=== PATIENT | male | born 1930 | race Caucasian/White ===

== ENCOUNTER 2017-01-03 16:24 | Emergency (ER) ==
[2017-01-03 16:37] VITALS: BP 121/68; TEMP 98.6; BMI 24.1
--- NOTE | 2017-01-03 17:06 | ED.PDOC ---
General ED Provider: Dr. MANAS STANLEY Chief Complaint: Extremity Pain/Injury Stated Complaint: mowing lawn on riding mower which tipped sideways on a hill. Patient jumped off and landed on left side with left arm under him. Tore skin of left elbow and hurt chest wall under elbow. Doesn't think anything is broken but insisted he come and be evaluated. Mower did not hit him. No LOC. Denies any other injury. Time Seen by Physician: 17:07 Mode of Arrival: Walk-In Information Source: Patient Primary Care Provider: DEBORA OLIVER Nursing and Triage Documentation Reviewed and Agree: Yes Musculoskeletal Complaint Exam - Elbow Pain Complaint/Exam Mechanism of Injury: Reports: Trauma Symptoms Are: Still present Onset of Pain: Reports: Immediate Initial Severity: Mild Current Severity: Moderate Location: Reports: Diffuse (left posterior elbow) Character: Reports: Aching Alleviating: Reports: Rest Aggravating: Reports: None Associated Signs and Symptoms: Reports: Redness (skin tear) Related Surgical History: Reports: None Elbow Findings: Present: Ecchymosis, Laceration (skin tear) Differential Diagnoses: Contusion, Other (skin tear) - Back Pain Complaint/Exam Mechanism of Injury: Reports: Trauma Onset/Duration: 3 hours Symptoms Are: Still present Timing: Constant Episodes Lasting: Hours Initial Severity: Moderate Current Severity: Moderate Location: Reports: Discrete (left lateral midchest) Character: Reports: Aching Aggravating: Reports: Movements (does not hurt with deep breath or cough), Lifting. Denies: Bending, Walking, Cough Alleviating: Reports: Rest TAD Risk Factors: Reports: Hypertension AAA Risk Factors: Reports: Hypertension Cauda Equina Risk Factors: Reports: None Epidural Abcess Risk Factors: Reports: None Related Surgical History: Reports: None Focal Tenderness: Yes Paraspinal Muscle Tenderness: No Paraspinal Muscle Spasm: No Scoliosis: No Lordosis: No Kyphosis: No SLR Test: Right Negative, Left Negative Hip Motion Testing Pain: Right Negative, Left Negative Focal Weakness: Present: None Focal Sensory Loss: Present: None Gait: Present: Normal Differential Diagnoses: Other (chest wall contusion) Review of Systems - Review Of Systems Constitutional: Reports: No symptoms Eyes: Reports: No symptoms Ears, Nose, Mouth, Throat: Reports: No symptoms Respiratory: Reports: No symptoms Cardiac: Reports: No symptoms GI: Reports: No symptoms : Reports: No symptoms Musculoskeletal: Reports: Muscle pain (left lateral midchest wall tenderness to palpation. minimal pain at rest) Skin: Reports: Bruising (skin tear left elbow) Neurological: Reports: No symptoms All Other Systems: Reviewed and Negative Past Medical History - Past Medical History Previously Healthy: No Endocrine: Reports: Hypothyroid Cardiovascular: Reports: CAD, [place], Hypertension Respiratory: Reports: None Hematological: Reports: None Gastrointestinal: Reports: GERD Genitourinary: Reports: None Neuro/Psych: Reports: None Musculoskeletal: Reports: None Cancer: Reports: None - Surgical History General Surgical History: Reports: Stent, Heart Cath, Pacemaker, Orthopedic ( knee x2, shoulder, forearm (post trauma - 4 fractures)), Hernia Repair (x2) - Family History Family History: Reports: Unknown - Social History Smoking Status: Never smoker Hx Substance Use: No Alcohol Screening: None Lives: With family - Immunizations Tetanus Shot up to Date: No (Long time) Influenza Vaccine within 12 Months: No Pneumococcal Vaccine up to Date: No Physical Exam - Physical Exam Appearance: Well-appearing, No pain distress, Well-nourished Ill-appearing: None Pain Distress: None Eyes: YONI, EOMI, Conjunctiva clear ENT: Ears normal, Nose normal, Oropharynx normal Neck: Supple Respiratory: Airway patent, Breath sounds clear, Breath sounds equal, Respirations nonlabored GI/: Soft, Nontender, No masses, Bowel sounds normal, No Organomegaly Musculoskeletal: Normal strength (lateral midchest wall is tender to palpation. No pain with pressure on chest anterior or posterior to affected area. No crepitance. Left elbow has posterior skin tear approx 3 cm long. No pain with ROM of elbow.), ROM intact, No edema, No calf tenderness Skin: Warm (skin tear of left elbow, posterior aspect), Dry, Normal color Neurological: Sensation intact, Motor intact, Reflexes intact, Cranial nerves intact, Alert, Oriented Psychiatric: Affect appropriate, Mood appropriate Critical Care Note - Critical Care Note Total Time (mins): 0 Course - Course Vital Signs: Temp Pulse Resp BP Pulse Ox 01/03/17 16:26 98.6 F 70 20 121/68 94 L Departure - Departure Time of Disposition: 17:32 Disposition: HOME SELF-CARE Discharge Problem: Skin tear of elbow without complication Qualifiers: Encounter type: initial encounter Laterality: left Qualified Code(s): S51.012A - Laceration without foreign body of left elbow, initial encounter Contusion of left chest wall Qualifiers: Encounter type: initial encounter Qualified Code(s): S20.212A - Contusion of left front wall of thorax, initial encounter Instructions: Skin Tear (ED), Contusion in Adults (ED) Condition: Good Pt referred to PMD for follow-up: No (See PCP if no better in one week or worsens) Additional Instructions: Change dressing on skin tear 3 times/day, using topical antibiotic ointment, nonstick dressing, and gauze. OTC pain relievers as needed. Allergies/Adverse Reactions: Allergies No Known Allergies Allergy (Unverified 02/13/15 11:25) Home Medications: Ambulatory Orders Alprazolam 1 mg PO BEDTIME 02/13/15 Aspirin [Aspirin Chewable] 81 mg PO DAILYWM 02/13/15 Cetirizine HCl [Allergy Relief] 10 mg PO DAILY 02/13/15 Cholecalciferol (Vitamin D3) [Vitamin D3] 1,000 unit PO DAILY 02/13/15 Diltiazem HCl [Cartia Xt] 180 mg PO DAILY 02/13/15 Dipyridamole [Persantine] 25 mg PO BID 02/13/15 Esomeprazole Magnesium [Nexium] 40 mg PO DAILY 02/13/15 Levothyroxine Sodium [Synthroid] 100 mcg PO QDAC 02/13/15 Lovastatin [Mevacor] 20 mg PO BEDTIME 02/13/15 Nitroglycerin 2 cap PO BID 02/13/15 Terazosin HCl [Hytrin] 5 mg PO BEDTIME 02/13/15 Nitroglycerin [Nitrostat] 0.4 mg SL Q5MIN X 3 DOSES PRN #1 tab.subl 02/14/15 Disposition Discussed With: Patient, Family
[2017-01-03] MEDS ORDERED: BOOSTRIX IM ONE (17:12)
== END 2017-01-03 17:50 | disposition home or self-care (01) ==
LOC: ED 16:24
DX: S51.012A Laceration without foreign body of left elbow, initial encounter (principal); S20.212A Contusion of left front wall of thorax, initial encounter; W17.89XA Other fall from one level to another, initial encounter
CPT/HCPCS: 90471; 90715; 99283

== ENCOUNTER 2017-04-04 17:52 | Inpatient (IN) ==
--- NOTE | 2017-04-04 18:36 | ED.PDOC ---
General Stated Complaint: flu like symptoms Time Seen by Physician: 18:00 (flu like sympx 3 days ) Mode of Arrival: Walk-In Information Source: Patient, Family Exam Limitations: No limitations Nursing and Triage Documentation Reviewed and Agree: Yes Reviewed sepsis parameters & appropriate labs ordered?: Yes System Inflammatory Response Syndrome: Not Applicable <AIDA LUCIO - Last Filed: 04/04/17 18:36> <SARBJIT PRIEST - Last Filed: 04/04/17 22:56> ED Provider: Dr. SARBJIT PRIEST Chief Complaint: Respiratory Complaint Primary Care Provider: DEBORA OLIVER Sepsis Protocol: For patient's 13 years and over: Temp is 96.8 and below OR 101 and greater Pulse >90 BPM Resp >20/minute Acutely Altered Mental Status Are patient's symptoms suggestive of a new infection, such as: -Pneumonia -Skin, Soft Tissue -Endocarditis -UTI -Bone, Joint Infection -Implantable Device -Acute Abdominal Infection -Wound Infection -Meningitis -Blood Stream Catheter Infection -Unknown Respiratory Complaint Exam - Respiratory Complaint/Exam Onset/Duration: 3 days Initial Severity: Mild Current Severity: Mild Location: Nose, Throat, Chest Character: Reports: Non-productive cough Aggravating: Reports: None Alleviating: Reports: None Associated Signs and Symptoms: Reports: URI, Nasal congestion. Denies: Rapid breathing, Dyspnea, Fever, Chills, Chest pain, Pleuritic chest pain, Wheezing, Hemoptysis, Dizziness, Calf pain, Calf swelling, Edema, Hoarseness, Sinus discomfort, Vomiting, Sore throat, Weight loss, Decreased oral intake, Increased thirst, Increased appetite, Increased urination Related History: Reports: Similar episode History of Healthcare-Acquired Pneumonia: No Related Surgical History: Reports: None Pulmonary Embolism Risk Factors: Bedrest Cardiac Risk Factors: Reports: Elevated lipids, Hypertension Tuberculosis Risk Factors: Reports: None Status Asthmaticus Risk Factors: Reports: None Home Oxygen Use: No Recent Stress Test: No Recent Echo/LV Function: No Current Antibiotic Use: No Current Asthma Medication Use: No Respiratory Distress: None Inadequate Respiratory Effort: No Dysphagia Present: No Stridor Present: No JVD Present: No Accessory Muscle Use: No Retractions: Not Present Diminished Breath Sounds: No Sinus Tenderness: None Grunting Respirations: No Kussmaul Respirations: No Differential Diagnoses: Pneumonia, Bronchitis <AIDA LUCIO - Last Filed: 04/04/17 18:36> Review of Systems - Review Of Systems Constitutional: Reports: Chills, Fever, Malaise, Weakness, Loss of appetite Eyes: Reports: No symptoms Ears, Nose, Mouth, Throat: Reports: No symptoms Respiratory: Reports: Cough Cardiac: Reports: No symptoms GI: Reports: No symptoms : Reports: No symptoms Musculoskeletal: Reports: No symptoms Skin: Reports: No symptoms Neurological: Reports: No symptoms Endocrine: Reports: No symptoms Hematologic/Lymphatic: Reports: No symptoms All Other Systems: Reviewed and Negative <AIDA LUCIO - Last Filed: 04/04/17 18:36> Past Medical History - Past Medical History Previously Healthy: No Endocrine: Reports: Hypothyroid Cardiovascular: Reports: CAD, [place], Hypertension Respiratory: Reports: None Hematological: Reports: None Gastrointestinal: Reports: GERD Genitourinary: Reports: None Neuro/Psych: Reports: None Musculoskeletal: Reports: None Cancer: Reports: None - Surgical History General Surgical History: Reports: Stent, Heart Cath, Pacemaker, Orthopedic ( knee x2, shoulder, forearm (post trauma - 4 fractures)), Hernia Repair (x2) - Family History Family History: Reports: Unknown - Social History Smoking Status: Never smoker Hx Substance Use: No Alcohol Screening: None - Immunizations Influenza Vaccine within 12 Months: No Pneumococcal Vaccine up to Date: No <AIDA LUCIO - Last Filed: 04/04/17 18:36> Physical Exam - Physical Exam Appearance: Well-appearing, No pain distress, Well-nourished Eyes: YONI, EOMI, Conjunctiva clear ENT: Ears normal, Nose normal, Oropharynx normal Respiratory: Rhonchi Cardiovascular: RRR, Pulses normal, No rub, No murmur GI/: Soft, Nontender, No masses, Bowel sounds normal, No Organomegaly Musculoskeletal: Normal strength, ROM intact, No edema, No calf tenderness Skin: Warm, Dry, Normal color Neurological: Sensation intact, Motor intact, Reflexes intact, Cranial nerves intact, Alert, Oriented Psychiatric: Affect appropriate, Mood appropriate <AIDA LUCIO - Last Filed: 04/04/17 18:36> Interpretation - Radiology Interpretation Radiology Interpretation By: Radiologist Radiology Results: Positive Exam Interpreted: CT Scan <SARBJIT PRIEST - Last Filed: 04/04/17 22:56> Physician Notification - Case Discussed Physician Notified: sarah Time of Notification: 19:00 <AIDA LUCIO - Last Filed: 04/04/17 18:36> Critical Care Note - Critical Care Note Total Time (mins): 20 <SARBJIT PRIEST - Last Filed: 04/04/17 22:56> Course - Course Hematology/Chemistry: 04/04/17 18:50 04/04/17 18:50 <SARBJIT PRIEST - Last Filed: 04/04/17 22:56> - Course Orders, Labs, Meds: Lab Review 04/04/17 04/04/17 04/04/17 18:45 18:45 18:50 WBC 8.08 RBC 4.46 L Hgb 13.8 L Hct 39.9 L MCV 89.5 MCH 30.9 MCHC 34.6 RDW Coeff of Andi 14.2 Plt Count 219 Immature Gran % (Auto) 0.1 Neut % (Auto) 66.1 Lymph % (Auto) 16.1 Mills % (Auto) 16.8 H Eos % (Auto) 0.4 Baso % (Auto) 0.5 Immature Gran # (Auto) 0.0 Neut # 5.3 Lymph # 1.3 Mills # 1.4 Eos # 0.0 Baso # 0.0 D-Dimer (Manual) 1731.62 Sodium Potassium Chloride Carbon Dioxide Anion Gap BUN Creatinine Estimated GFR (MDRD) BUN/Creatinine Ratio Glucose Lactic Acid Calcium Total Bilirubin AST ALT Alkaline Phosphatase Total Creatine Kinase Troponin I B-Natriuretic Peptide 87 Total Protein Albumin Globulin Albumin/Globulin Ratio Procalcitonin Influenza A (Rapid) Influenza B (Rapid) 04/04/17 04/04/17 04/04/17 18:50 18:50 18:50 WBC RBC Hgb Hct MCV MCH MCHC RDW Coeff of Andi Plt Count Immature Gran % (Auto) Neut % (Auto) Lymph % (Auto) Mills % (Auto) Eos % (Auto) Baso % (Auto) Immature Gran # (Auto) Neut # Lymph # Mills # Eos # Baso # D-Dimer (Manual) Sodium 138 Potassium 4.0 Chloride 104 Carbon Dioxide 26 Anion Gap 12.0 BUN 11 Creatinine 0.90 Estimated GFR (MDRD) 80.00 BUN/Creatinine Ratio 12.22 Glucose 105 Lactic Acid 11.1 Calcium 8.4 Total Bilirubin 0.7 AST 24 ALT 21 Alkaline Phosphatase 68 Total Creatine Kinase 37 Troponin I 0.0240 B-Natriuretic Peptide Total Protein 6.8 Albumin 3.4 Globulin 3.4 Albumin/Globulin Ratio 1.00 Procalcitonin < 0.05 Influenza A (Rapid) Influenza B (Rapid) 04/04/17 19:08 WBC RBC Hgb Hct MCV MCH MCHC RDW Coeff of Andi Plt Count Immature Gran % (Auto) Neut % (Auto) Lymph % (Auto) Mills % (Auto) Eos % (Auto) Baso % (Auto) Immature Gran # (Auto) Neut # Lymph # Mills # Eos # Baso # D-Dimer (Manual) Sodium Potassium Chloride Carbon Dioxide Anion Gap BUN Creatinine Estimated GFR (MDRD) BUN/Creatinine Ratio Glucose Lactic Acid Calcium Total Bilirubin AST ALT Alkaline Phosphatase Total Creatine Kinase Troponin I B-Natriuretic Peptide Total Protein Albumin Globulin Albumin/Globulin Ratio Procalcitonin Influenza A (Rapid) Positive by naat H Influenza B (Rapid) Negative by naat Orders Category Date Time Status ABG DRAW REQUEST Stat CARDIO 04/04/17 20:59 Ordered EKG-(ED ONLY) Stat CARDIO 04/04/17 18:34 Completed NPO REMINDER: IMAGING ONCE CARE 04/04/17 19:51 Completed ED IV/MEDIPORT/POWERPORT .ONCE EMERGENCY 04/04/17 19:51 Active ABG Stat LAB 04/04/17 20:59 Ordered B-TYPE NATRIURETIC PEPTIDE Stat LAB 04/04/17 18:45 Completed BLOOD CULTURE (ED ONLY) Stat LAB 04/04/17 18:50 Received CBC W/ AUTO DIFF Stat LAB 04/04/17 18:50 Completed COMPREHENSIVE METABOLIC PANEL Stat LAB 04/04/17 18:50 Completed CREATINE KINASE Stat LAB 04/04/17 18:50 Completed D-DIMER Stat LAB 04/04/17 18:45 Completed LACTIC ACID Stat LAB 04/04/17 18:50 Completed MOLECULAR FLU A/B Stat LAB 04/04/17 19:08 Completed MOLECULAR GROUP A STREP Stat LAB 04/04/17 19:08 Completed PROCALCITONIN Stat LAB 04/04/17 18:50 Completed TROPONIN I Stat LAB 04/04/17 18:50 Completed 0.9 % Sodium Chloride [Saline Flush] MEDS 04/04/17 19:51 Ordered 1 syr IVF PRN PRN Ceftriaxone Sodium [Rocephin] MEDS 04/04/17 22:05 Discontinued 1 gm .ROUTE .STK-MED ONE Ceftriaxone Sodium [Rocephin] 1 gm MEDS 04/04/17 22:03 Discontinued 0.9 % Sodium Chloride [Sodium Chloride] 50 ml IV ONCE Sodium Chloride 0.9% [Sodium Chloride] 500 ml MEDS 04/04/17 19:51 Active IV 100 mls/hr CT CHEST PE PROTOCOL Stat RADS 04/04/17 19:[address] CHEST W/O CONTRAST Stat RADS 04/04/17 18:53 Completed Medications Generic Name Dose Route Start Last Admin Trade Name Freq PRN Reason Stop Dose Admin Sodium Chloride 500 mls @ 100 mls/hr 04/04/17 19:51 04/04/17 20:14 Sodium Chloride IV 04/05/17 00:50 100 mls/hr .Q5H STA Administration Sodium Chloride 1 syr 04/04/17 19:51 04/04/17 20:14 Saline Flush IVF 1 syr PRN PRN Administration To flush IV Discontinued Medications Generic Name Dose Route Start Last Admin Trade Name Freq PRN Reason Stop Dose Admin Ceftriaxone Sodium 1 gm/ 50 mls @ 75 mls/hr 04/04/17 22:03 04/04/17 22:14 Sodium Chloride IV 04/04/17 22:42 75 mls/hr ONCE STA Administration Vital Signs: Temp Pulse Resp BP Pulse Ox 04/04/17 17:53 100.8 F H 94 H 20 105/65 94 L Departure - Departure Pt referred to PMD for follow-up: Yes Disposition Discussed With: Patient <AIDA LUCIO - Last Filed: 04/04/17 18:36> - Departure Time of Disposition: 22:56 Disposition Discussed With: Family <SARBJIT PRIEST - Last Filed: 04/04/17 22:56> - Departure Disposition: HOME SELF-CARE Discharge Problem: Influenza A Pneumonia Qualifiers: Pneumonia type: due to unspecified organism Laterality: bilateral Lung location : lower lobe of lung Qualified Code(s): J18.9 - Pneumonia, unspecified organism Instructions: Influenza (ED) Condition: Good Allergies/Adverse Reactions: Allergies No Known Allergies Allergy (Verified 04/04/17 17:58) Home Medications: Ambulatory Orders Alprazolam 1 mg PO BEDTIME 02/13/15 Aspirin [Aspirin Chewable] 81 mg PO DAILYWM 02/13/15 Cetirizine HCl [Allergy Relief] 10 mg PO DAILY 02/13/15 Cholecalciferol (Vitamin D3) [Vitamin D3] 1,000 unit PO DAILY 02/13/15 Diltiazem HCl [Cartia Xt] 180 mg PO DAILY 02/13/15 Esomeprazole Magnesium [Nexium] 40 mg PO DAILY 02/13/15 Levothyroxine Sodium [Synthroid] 100 mcg PO EVERY OTHER DAY 02/13/15 Lovastatin [Mevacor] 20 mg PO BEDTIME 02/13/15 Terazosin HCl [Hytrin] 5 mg PO BEDTIME 02/13/15 Nitroglycerin [Nitrostat] 0.4 mg SL Q5MIN X 3 DOSES PRN #1 tab.subl 02/14/15 Clopidogrel Bisulfate [Clopidogrel] 75 mg PO DAILY 04/04/17 Diphenhydramine HCl [Benadryl] 25 mg PO DAILY 04/04/17 Esomeprazole Magnesium [Nexium] 40 mg PO DAILY 04/04/17 Isosorbide Dinitrate 20 mg PO BID 04/04/17
--- NOTE | 2017-04-04 19:40 | CT ---
EXAM: CT chest without contrast TECHNIQUE: Helical axial CT of the chest was performed without contrast with coronal and sagittal rec onstructions. COMPARISON: None. HISTORY: Cough FINDINGS: Lung parenchyma: There is no mass or nodule or large effusion or infiltrate. There is trace basilar a telectasis. Mediastinum: No pathologic hilar or mediastinal adenopathy. There are coronary calcifications. There is no pericardial effusion. There is calcific atherosclerosis of the aorta. There is a pacemaker in place. There is no aortic aneurysm. 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 Upper Abdomen: The gallbladder is fairly distended. There may be some minimal fat stranding adjacent to the gallbladder. There is old granulomatous disease in the spleen. Osseous structures: Nothing acute. Surrounding soft tissues including the thyroid gland are normal. No supraclavicular or axillary adeno moriah. IMPRESSION: 1. No acute abnormality in the chest. Lungs are clear with exception of some trace atelectasis. 2. Distended gallbladder with questionable minimal mesenteric stranding. If there are any symptoms related to the right upper quadrant an ultrasound may be helpful. 3. Atherosclerosis.
[2017-04-04] MEDS ORDERED: SODIUM CHLORIDE 500 ML IV STA (19:51)
--- NOTE | 2017-04-04 20:54 | CT ---
EXAM: CTA chest for PE HISTORY: Shortness of breath with fever, sore throat and elevated D-dimer COMPARISON: CT chest 04/04/2017 and multiple prior chest x-rays TECHNIQUE: CTA of the chest was performed from the lung apices to the upper abdomen after 100 ml of Omnipaque IV contrast was administered using PE protocol. 3-D imaging was also provided. FINDINGS: There is no filling defect in the pulmonary arteries to the level of the subsegmental pulm onary arteries. The heart is normal without signs of ventricular strain. The aorta is unremarkable. Heart is unchanged in size without pericardial effusion. Lead wires are stable. There are calcifi ed mediastinal and hilar lymph nodes. There is no pneumothorax or pleural effusion. There is mild bibasilar atelectasis. There is minimal lower lobe predominant airway thickening. There is no acute consolidation, nodule or mass. The air ways are patent. The soft tissues in the upper abdomen are unchanged. The osseous structures demonstrate old rib frac tures with degenerative disease of the spine. IMPRESSION: 1. No pulmonary embolism. 2. Minimal lower lobe airway thickening may represent small airways inflammation/infection. 3. Mild bibasilar atelectasis. 4. Soft tissues in the upper abdomen are unchanged.
[2017-04-04] MEDS ORDERED: ROCEPHIN 1 GM in SODIUM CHLORIDE 50 ML IV STA (22:03)
[2017-04-04] MEDS ORDERED: ROCEPHIN ONE (22:05)
[2017-04-04] MEDS ORDERED: TYLENOL PO PRN (22:56)
[2017-04-04] MEDS ORDERED: VANCOMYCIN 1,000 MG in SODIUM CHLORIDE 200 ML IV SCH (23:00)
[2017-04-04] MEDS ORDERED: NON-FORMULARY MEDICATION (Alprazolam [Alprazolam] 1 MG) PO SCH (23:00)
[2017-04-04] MEDS ORDERED: DECADRON 4 MG/ML SDV IVP STA (23:30)
[2017-04-05] MEDS ORDERED: XANAX ONE (00:09)
[2017-04-05] MEDS: DUONEB NEB SCH ×4 (01:18→17:56)
[2017-04-05] MEDS: SODIUM CHLORIDE 1,000 ML IV SCH ×3 (01:21→22:17)
[2017-04-05] MEDS ORDERED: DEMEROL 25 MG/ML VIAL IVP STA (04:13)
--- NOTE | 2017-04-05 06:19 | CT ---
EXAM: CT of the abdomen and pelvis without contrast. HISTORY: Abdominal pain. PROCEDURE: Contiguous axial CT images of the abdomen and pelvis without contrast with coronal and sa gittal reformats. FINDINGS: Comparison made with CT of 04/04/2017. There is minimal bibasilar atelectasis. The liver i s normal in appearance. The gallbladder is at the upper limits of normal in size measuring 4 cm in di ameter. There is questionable gallbladder wall thickening which is not well visualized by CT.. There are a few calcifications in the pancreas. The spleen, adrenal glands and kidneys are normal in appea sherrell. There is residual contrast in the kidneys, ureters and bladder. The abdominal aorta is withi n normal limits in diameter. The appendix is not visualized. There is diverticulosis of the colon wi th no evidence of diverticulitis. No free fluid or free air in the abdomen or pelvis. The bladder is adequately filled with no abnormality identified. The prostate gland is enlarged measuring 5.8 cm. The seminal vesicles are unremarkable. There are degenerative changes in the spine. Impression: Gallbladder at the upper limits of normal in size with questionable gallbladder wall thi ckening. Recommend ultrasound for further evaluation. Diverticulosis of the colon. Enlarged prostate gland.
[2017-04-05] MEDS ORDERED: [UNRECOGNIZED DRUG - REMARK] PO SCH (09:00)
[2017-04-05] MEDS ORDERED: NON-FORMULARY MEDICATION (Esomeprazole Magnesium [Nexium] 40 MG) PO SCH (09:00)
[2017-04-05] MEDS ORDERED: NON-FORMULARY MEDICATION (Cholecalciferol (Vitamin D3) [Vitamin D3] 1,000 UNIT) PO SCH (09:00)
[2017-04-05] MEDS: ASPIRIN CHEWABLE PO SCH (09:07)
[2017-04-05] MEDS: CARDIZEM CD PO SCH (09:07)
[2017-04-05] MEDS: PLAVIX PO SCH (09:08)
[2017-04-05] MEDS: PROTONIX PO SCH (09:08)
[2017-04-05] MEDS: SORBITRATE PO SCH ×2 (09:08→21:20)
[2017-04-05] MEDS: VITAMIN D PO SCH (09:09)
[2017-04-05] MEDS: LOVENOX SUBCUT SCH (09:10)
[2017-04-05] MEDS: VANCOMYCIN 500 MG in SODIUM CHLORIDE 100 ML IV SCH ×3 (14:06→23:44)
[2017-04-05] MEDS ORDERED: VANCOMYCIN 500 MG in SODIUM CHLORIDE 100 ML IV SCH (16:00)
[2017-04-05 16:38] VITALS: BMI 23.8
[2017-04-05] MEDS: DECADRON 4 MG/ML SDV IVP SCH (16:59)
[2017-04-05] MEDS ORDERED: MEVACOR PO SCH (21:00)
[2017-04-05] MEDS: ROCEPHIN 1 GM in SODIUM CHLORIDE 50 ML IV SCH (21:20)
[2017-04-05] MEDS: BENADRYL PO SCH (21:20)
[2017-04-05] MEDS: HYTRIN PO SCH (21:20)
[2017-04-05] MEDS: XANAX PO SCH (21:20)
[2017-04-06] MEDS: DUONEB NEB SCH ×5 (00:12→23:10)
[2017-04-06] MEDS: PROTONIX PO SCH (06:57)
[2017-04-06] MEDS: SYNTHROID PO SCH (06:57)
[2017-04-06] MEDS: VANCOMYCIN 500 MG in SODIUM CHLORIDE 100 ML IV SCH (06:57)
[2017-04-06] MEDS ORDERED: LOVENOX SUBCUT SCH (09:00)
[2017-04-06] MEDS: SORBITRATE PO SCH ×2 (11:28→20:32)
[2017-04-06] MEDS: ASPIRIN CHEWABLE PO SCH (11:28)
[2017-04-06] MEDS: VITAMIN D PO SCH (11:29)
[2017-04-06] MEDS: CARDIZEM CD PO SCH (11:29)
[2017-04-06] MEDS: PLAVIX PO SCH (11:29)
[2017-04-06] MEDS: DECADRON 4 MG/ML SDV IVP SCH (11:30)
[2017-04-06] MEDS: LOVENOX SUBCUT SCH (11:31)
[2017-04-06] MEDS: BENADRYL PO SCH (20:31)
[2017-04-06] MEDS: XANAX PO SCH (20:31)
[2017-04-06] MEDS: HYTRIN PO SCH (20:32)
[2017-04-06] MEDS: ROCEPHIN 1 GM in SODIUM CHLORIDE 50 ML IV SCH (20:32)
[2017-04-07] MEDS: DUONEB NEB SCH ×4 (04:05→22:33)
[2017-04-07] MEDS: PROTONIX PO SCH (05:58)
[2017-04-07] MEDS: DECADRON 4 MG/ML SDV IVP SCH (09:27)
[2017-04-07] MEDS: ASPIRIN CHEWABLE PO SCH (09:27)
[2017-04-07] MEDS: SORBITRATE PO SCH ×2 (09:28→21:33)
[2017-04-07] MEDS: PLAVIX PO SCH (09:28)
[2017-04-07] MEDS: VITAMIN D PO SCH (09:28)
[2017-04-07] MEDS: LOVENOX SUBCUT SCH (09:29)
[2017-04-07] MEDS: CARDIZEM CD PO SCH (09:29)
[2017-04-07] MEDS: XANAX PO SCH (21:32)
[2017-04-07] MEDS: ROCEPHIN 1 GM in SODIUM CHLORIDE 50 ML IV SCH (21:32)
[2017-04-07] MEDS: BENADRYL PO SCH (21:32)
[2017-04-07] MEDS: COLACE PO SCH (21:32)
[2017-04-07] MEDS: HYTRIN PO SCH (21:32)
[2017-04-08] MEDS: DUONEB NEB SCH ×4 (04:03→20:32)
--- NOTE | 2017-04-08 10:32 | PCM.PROG ---
Attending Provider: ATTENDING PROVIDER: Dr. DEBORA OLIVER This patient is seen with Pam Martinez, Nurse Practitioner. DATE OF SERVICE: 04/08/17 SUBJECTIVE: This 86 year old WHITE/ M was hospitalized 04/05/17. The patient is lying in bed resting comfortably. He has been eating well. Will do an US of gallbladder today. REVIEW OF SYSTEMS: CONSTITUTIONAL: Weakness and fatigue. No night sweats. No fever or chills. HEENT: Eyes: No visual changes. No eye pain. No eye discharge. ENT: No runny nose. No epistaxis. No sinus pain. No odynophagia. No congestion. RESPIRATORY: No cough, no congestion. No hemoptysis. No shortness of breath. CARDIOVASCULAR: No angina symptoms. No CHF symptoms. No atypical chest pain for CAD. No palpitations. No orthopnea.. GASTROINTESTINAL: Good appetite. No abdominal pain. No nausea or vomiting. No diarrhea or constipation. No hematemesis. No hematochezia. GENITOURINARY: No urgency. No frequency. No dysuria. No hematuria. No obstructive symptoms. No discharge. No pain. No significant abnormal bleeding. MUSCULOSKELETAL: No musculoskeletal pain; no joint swelling. NEUROLOGICAL: Resting, oriented to person. No headache. No neck pain. No syncope. No seizures. No dizziness. PSYCHIATRIC: Not anxious. No depression. No suicidal thoughts. No homicidal thoughts. SKIN: No rash. No lesions. No wounds. ENDOCRINE: No unexplained weight loss. No weight gain. HEMATOLOGIC/LYMPHATIC: No anemia. No purpura. No petechiae. No prolonged or excessive bleeding. No palpable lymph nodes. PHYSICAL EXAMINATION: GENERAL: The patient is resting comfortably, oriented to person, lying in bed in no distress. VITAL SIGNS: Temperature 97.3 F, Pulse 84, Respiratory Rate 17, BP 119/64, Pulse Ox 96% HEENT: Head normocephalic, atraumatic. Eyes: Extraocular muscles are intact. Pupils are equal, round and reactive to light and accommodation. Ears: No lesions. Nose appeared normal. Throat: No exudate or erythema. NECK: Supple. No JVD, no carotid bruit. No lymphadenopathy or thyromegaly. LUNGS: Diminished breath sounds. Clear to auscultation. Percussion note normal. Chest symmetrical. HEART: S1, S2, no S3. No murmurs. No cyanosis or clubbing. No ascites. Pulses: Dorsalis pedis and posterior tibial pulses +1 to +2 both sides. ABDOMEN: Soft. Non-tender. Bowel sounds active. No CVA tenderness. No mass felt. EXTREMITIES: No edema. Full range of motion of all extremities, equal. NEUROLOGIC: No focal deficit. Cranial nerves II through XII are grossly intact. No headache, no double vision or headache. SKIN: Not dry. Intact. Turgor-normal. LYMPHATIC: No palpable lymph nodes/no lymphedema. MUSCULOSKELETAL: Normal joints with no swelling. Muscle tone is normal. LAB REVIEW: 04/08/17 05:10 04/08/17 05:10 04/08/17 05:10: Sodium 140, Potassium 3.8, Chloride 107, Carbon Dioxide 26, Anion Gap 10.8, BUN 17, Creatinine 0.88, Estimated GFR (MDRD) 82.00, BUN/ Creatinine Ratio 19.31, Glucose 140 H, Calcium 8.5, Total Bilirubin 0.5, AST 55 H, ALT 80 H, Alkaline Phosphatase 87, Total Protein 6.0, Albumin 3.0 L, Globulin 3.0, Albumin/Globulin Ratio 1.00 04/08/17 05:10: WBC 6.41, RBC 3.74 L, Hgb 11.4 L, Hct 33.5 L, MCV 89.6, MCH 30.5 , MCHC 34.0, RDW Coeff of Andi 14.6, Plt Count 233, Immature Gran % (Auto) 0.3, Neut % (Auto) 73.3, Lymph % (Auto) 15.9, Prowers % (Auto) 10.5 H, Eos % (Auto) 0.0 , Baso % (Auto) 0.0, Immature Gran # (Auto) 0.0, Neut # 4.7, Lymph # 1.0, Prowers # 0.7, Eos # 0.0, Baso # 0.0 ASSESSMENT: 1. Influenza A positive 2. Small pneumonia 3. Gallbladder thickening, ultrasound today PLAN: 1. Gallbladder ultrasound today 2. Liver function improving Plan and coordination of the patient's care discussed in the presence of [employer] Machine Adjuster and nurse. CONDITION: Stable SCRIBED BY: Yash YAÑEZ scribed while in presence of service performed by Dr. Oliver/Pam Martinez APRN on 04/08/17 ([id number])
[2017-04-08] MEDS: LOVENOX SUBCUT SCH (11:00)
[2017-04-08] MEDS: ASPIRIN CHEWABLE PO SCH (11:01)
[2017-04-08] MEDS: PLAVIX PO SCH (11:02)
[2017-04-08] MEDS: SORBITRATE PO SCH ×2 (11:02→20:44)
[2017-04-08] MEDS: SYNTHROID PO SCH (11:03)
[2017-04-08] MEDS: PROTONIX PO SCH (11:03)
[2017-04-08] MEDS: VITAMIN D PO SCH (11:04)
[2017-04-08] MEDS: CARDIZEM CD PO SCH (11:04)
--- NOTE | 2017-04-08 11:04 | PN ---
DATE OF SERVICE: 04/07/17 SUBJECTIVE: The patient was hospitalized with Influenza A. He is much better and no gastroenteritis. The coughing and the pneumonia seems to be resolving. The daughter as usual is in the room. REVIEW OF SYSTEMS: CONSTITUTIONAL: No night sweats. No fatigue, malaise, lethargy. No fever or chills. Weakness. HEENT: Eyes: No visual changes. No eye pain. No eye discharge. ENT: No runny nose. No epistaxis. No sinus pain. No sore throat. No odynophagia. No congestion. RESPIRATORY: No cough, no congestion. No hemoptysis. No shortness of breath. CARDIOVASCULAR: No angina symptoms. No CHF symptoms. No atypical chest pain for CAD. No palpitations. No orthopnea. GASTROINTESTINAL: No abdominal pain. No nausea or vomiting. No diarrhea or constipation. No hematemesis. No hematochezia. Appetite has improved. GENITOURINARY: No urgency. No frequency. No dysuria. No hematuria. No obstructive symptoms. No discharge. No pain. No significant abnormal bleeding. MUSCULOSKELETAL: No musculoskeletal pain; no joint swelling. NEUROLOGICAL: No headache. No neck pain. No syncope. No seizures. No dizziness. PSYCHIATRIC: Not anxious. No depression. No suicidal thoughts. No homicidal thoughts. SKIN: No rash. No lesions. No wounds. ENDOCRINE: No unexplained weight loss. No weight gain. HEMATOLOGIC/LYMPHATIC: No anemia. No purpura. No petechiae. No prolonged or excessive bleeding. No palpable lymph nodes. PHYSICAL EXAMINATION: VITALS: Stable HEENT: Head normocephalic, atraumatic. Eyes: Extraocular muscles are intact. Pupils are equal, round and reactive to light and accommodation. Ears: No lesions. Nose appeared normal. Throat: No exudate or erythema. NECK: Supple. No JVD, no carotid bruit. No lymphadenopathy or thyromegaly. LUNGS: Clear with decreased breath sounds. Percussion note normal. Chest symmetrical. HEART: S1, S2, no S3. No murmurs. No cyanosis or clubbing. No ascites. Pulses: Dorsalis pedis and posterior tibial pulses +1 to +2 both sides. ABDOMEN: Soft. Nontender. Bowel sounds active. No CVA tenderness. No mass felt. EXTREMITIES: No edema. Full range of motion of all extremities, equal. NEUROLOGIC: No focal deficit. Cranial nerves II through XII are grossly intact. No headache, no double vision or headache. SKIN: Not dry. Intact. Turgor - normal. LYMPHATIC: No palpable lymph nodes/no lymphedema. MUSCULOSKELETAL: Normal joints with no swelling. Muscle tone is normal. ASSESSMENT: 1. Pneumonia 2. Influenza seems to be resolving 3. Still short of breath with exertion. PLAN: 1. Will do echocardiogram to evaluate LV function 2. Continue NEB, steroids and antibiotics. CONDITION: Improved, Stable TIME SPENT: More than 30 minutes. Plan and coordination of the patient's care discussed in the presence of nurse. LEYDA
[2017-04-08] MEDS: DECADRON 4 MG/ML SDV IVP SCH ×2 (11:07→15:34)
[2017-04-08] MEDS ORDERED: DECADRON 4 MG/ML SDV IM ONE (11:07)
--- NOTE | 2017-04-08 11:07 | US ---
EXAM: ULTRASOUND ABDOMEN LIMITED HISTORY: Abnormal liver enzymes, inflamed gallbladder FINDINGS: Ultrasound abdomen, limited. Guzmán-scale ultrasound and color Doppler was performed. Live r size was measured at 13 cm, within normal limits. The liver parenchyma demonstrated normal sonograp hic appearance without evidence of intrahepatic biliary dilatation or focal lesion. Patent and hepato pedal main portal vein. No evidence of gallbladder stones or sludge. Gallbladder wall thickness was over upper limit normal at 0.4 cm. The common bile duct diameter was normal at 0.39 cm. The visualized pancreas was within normal limits. No ascites. IMPRESSION: 1. Mild gallbladder wall thickening. No gallstones or gallbladder sludge. No ascites. Common bile duct diameter was normal. 2. No definite sonographic abnormality of the liver.
[2017-04-08] MEDS: SODIUM CHLORIDE 1,000 ML IV SCH ×2 (11:08→11:09)
--- NOTE | 2017-04-08 14:03 | PN ---
DATE OF SERVICE: 04/06/17 SUBJECTIVE: 86 year old white male hospitalized with influenza A positive. The patient has pneumonia bilateral also. Very likely has mild inflammation of gallbladder with some abnormality of the liver function which could be from influenza and pneumonia. The patient's Mevacor will be discontinued. The patient's daughter is sitting in the room. REVIEW OF SYSTEMS: CONSTITUTIONAL: No night sweats. No fatigue, malaise, lethargy. No fever or chills. HEENT: Eyes: No visual changes. No eye pain. No eye discharge. ENT: No runny nose. No epistaxis. No sinus pain. No sore throat. No odynophagia. No congestion. RESPIRATORY: No cough, no congestion. No hemoptysis. No shortness of breath. CARDIOVASCULAR: No angina symptoms. No CHF symptoms. No atypical chest pain for CAD. No palpitations. No orthopnea. GASTROINTESTINAL: No abdominal pain. No nausea or vomiting. No diarrhea or constipation. No hematemesis. No hematochezia. Eating better and appetite has improved. He ate his breakfast again yesterday and ate his supper. GENITOURINARY: No urgency. No frequency. No dysuria. No hematuria. No obstructive symptoms. No discharge. No pain. No significant abnormal bleeding. MUSCULOSKELETAL: No musculoskeletal pain; no joint swelling. NEUROLOGICAL: No headache. No neck pain. No syncope. No seizures. No dizziness. PSYCHIATRIC: Not anxious. No depression. No suicidal thoughts. No homicidal thoughts. SKIN: No rash. No lesions. No wounds. ENDOCRINE: No unexplained weight loss. No weight gain. HEMATOLOGIC/LYMPHATIC: No anemia. No purpura. No petechiae. No prolonged or excessive bleeding. No palpable lymph nodes. PHYSICAL EXAMINATION: GENERAL: The patient is oriented to time, place and person. VITALS: Temperature 97.5, pulse 64, respiratory rate 16, blood pressure 122/58 and pulse ox 95% on room air. HEENT: Head normocephalic, atraumatic. Eyes: Extraocular muscles are intact. Pupils are equal, round and reactive to light and accommodation. Ears: No lesions. Nose appeared normal. Throat: No exudate or erythema. NECK: Supple. No JVD, no carotid bruit. No lymphadenopathy or thyromegaly. LUNGS: Mild expiratory wheeze. Good air entry. Percussion note normal. Chest symmetrical. HEART: S1, S2, no S3. No murmurs. No cyanosis or clubbing. No ascites. Pulses: Dorsalis pedis and posterior tibial pulses +1 to +2 both sides. ABDOMEN: Soft. Nontender. Bowel sounds active. No CVA tenderness. No mass felt. EXTREMITIES: No edema. Full range of motion of all extremities, equal. NEUROLOGIC: No focal deficit. Cranial nerves II through XII are grossly intact. No headache, no double vision or headache. SKIN: Not dry. Intact. Turgor - much better. LYMPHATIC: No palpable lymph nodes/no lymphedema. MUSCULOSKELETAL: Normal joints with no swelling. Muscle tone is normal. LABS: CT scan of the abdomen reviewed which showed distended gallbladder with questionable minimal mesenteric stranding. CT chest with PE protocol earlier showed lower lobe minimal thickening of the airways could be infection, inflammation with mild basilar atelectasis. ASSESSMENT: 1. Pneumonia seems to be resolving 2. Influenza A 3. Dehydration, resolving 4. Possibility to Cholecystitis seems to be resolving PLAN: 1. Continue antibiotics Rocephin, Steroids TIME SPENT: More than 30 minutes. Plan and coordination of the patient's care discussed in the presence of nurse. LEYDA
[2017-04-08] MEDS ORDERED: DECADRON 4 MG/ML SDV IM STA (14:30)
--- NOTE | 2017-04-08 15:54 | HP ---
DATE OF SERVICE: 04/05/17 REASON FOR HOSPITALIZATION/HISTORY OF PRESENT ILLNESS: 86 year old white male came to the emergency room on 04/04/17 with complaint of having flu type of symptoms. The patient had nausea and vomiting and also started having cough and congestion. His symptoms with aches and pain and fever where there for three days. The patient ran a fever as high as 101 at home. Eventually after many requests by his daughter the patient had decided to come to the emergency room. PAST MEDICAL HISTORY/PAST SURGICAL HISTORY: Coronary artery disease Dyslipidemia Hypertension Anxiety Hypothyroidism Gastroesophageal reflux REVIEW OF SYSTEMS: CONSTITUTIONAL: No night sweats. Weakness and fatigue. Fever and chills. HEENT: Eyes: No visual changes. No eye pain. No eye discharge. ENT: No runny nose. No epistaxis. No sinus pain. No sore throat. No odynophagia. No ear pain. No congestion. RESPIRATORY: Cough, Congestion with yellowish sputum production. No hemoptysis. No shortness of breath. CARDIOVASCULAR: No angina symptoms. No CHF symptoms. No atypical chest pain for CAD. No palpitations. No orthopnea. Pleuritic type of pain. No PND. No coronary insufficiency type of symptoms. GASTROINTESTINAL: No abdominal pain. Nausea and vomiting. No diarrhea or constipation. No hematemesis. No hematochezia. Poor appetite. GENITOURINARY: No urgency. No frequency. No dysuria. No hematuria. No obstructive symptoms. No discharge. No pain. No significant abnormal bleeding. MUSCULOSKELETAL: No musculoskeletal pain. No joint swelling. No arthritis. NEUROLOGICAL: No headache. No neck pain. No syncope. No seizures. No dizziness. PSYCHIATRIC: Not anxious. No depression. No suicidal thoughts. No homicidal thoughts. SKIN: No rash. No lesions. No wounds. ENDOCRINE: No unexplained weight loss. No weight gain. HEMATOLOGIC/LYMPHATIC: No anemia. No purpura. No petechiae. No prolonged or excessive bleeding. No palpable lymph nodes. PERSONAL/FAMILY/SOCIAL HISTORY: The patient is and lives by himself with the help of the daughter. Nonsmoker and no alcohol abuse. At this age he is doing all activity of daily living. Fairly intelligent. MEDICATIONS: Xanax 1mg Po at bedtime Aspirin 81mg PO daily Zyrtec 10mg Po daily Diltazem 180mg PO daily Nexium 40mg PO daily Synthroid 100mcg PO daily Mevacor 20mg Po daily Hytrin 5mg at bedtime Clopidogrel 75mg Po daily Benadryl PRN Nexium 40mg PO at QAM Isosorbide 20mg twice a day ALLERGIES: No known allergies. PHYSICAL EXAMINATION: GENERAL: The patient is VITAL SIGNS: Temperature 100.8, pulse 94, respiratory rate 20, blood pressure 105/65 and pulse ox 94% on 2 liters. These were the vitals on admission. HEENT: Head normocephalic, atraumatic. Eyes: Extraocular muscles are intact. Pupils are equal, round and reactive to light and accommodation. Ears: No lesions. Nose appeared normal. Throat: No exudate or erythema. NECK: Supple. No JVD, no carotid bruit. No lymphadenopathy or thyromegaly. LUNGS: Decreased breath sounds but clear to auscultation. Mild wheezing noted. Percussion note normal. Chest symmetrical. HEART: S1, S2, no S3. Grade I/ systolic murmur. No cyanosis or clubbing. No ascites. Pulses: Dorsalis pedis and posterior tibial pulses +1 bilaterally. ABDOMEN: Soft. Nontender. Bowel sounds active. No CVA tenderness. No mass felt. EXTREMITIES: No edema. Full range of motion of all extremities, equal. NEUROLOGIC: No focal deficit. Cranial nerves II through XII are grossly intact. No headache, no double vision or headache. Mental status normal. SKIN: Dry. Intact. Turgor - normal. Mucosa membrane dry. LYMPHATIC: No palpable lymph nodes/no lymphedema. MUSCULOSKELETAL: Normal joints with no swelling. Muscle tone is normal. LABS: CT scan of the chest done showed pneumonia. EKG pacemaker rhythm capturing and sensing well. No acute changes. Hgb 13.8, hct 39, WBC 8,000 normal differential , D-Dimer 1731 elevated. Influenza A positive. Procalcitonin less than 0.25, Lactic acid 11.1, Troponin and CK negative. Creatinine 0.9, BUN 11, potassium 4.0 ASSESSMENT: 1. Bilateral pneumonia 2. Influenza A positive with flu type of symptoms 3. Dehydration 4. Coronary artery disease 5. Acute gastritis 6. Dyslipidemia 7. Hypertension 8. BPH 9. Anxiety disorder PLAN: 1. Admit the patient 2. Put him on Vancomycin 500mg twice a day 3. IV Rocephin 1 gram Q 24 4. 1cc Decadron IM daily 5. Daily CBC and CMP 6. IV fluids at 50cc per hour 7. Continue all the medications that patient had been on 8. Telemetry 9. EKG 10.ABG CONDITION: Stable The patient was not seen on 04/04/17. The patient stayed in the emergency and later on he was admitted to the floor on 04/05/17. TIME SPENT: More than 70 minutes. MTDD
[2017-04-08] MEDS: HYTRIN PO SCH (20:43)
[2017-04-08] MEDS: COLACE PO SCH (20:43)
[2017-04-08] MEDS: ROCEPHIN 1 GM in SODIUM CHLORIDE 50 ML IV SCH (20:43)
[2017-04-08] MEDS: BENADRYL PO SCH (20:43)
[2017-04-08] MEDS: XANAX PO SCH (20:44)
[2017-04-09] MEDS: DUONEB NEB SCH ×2 (04:37→09:58)
[2017-04-09] MEDS: PROTONIX PO SCH (05:52)
[2017-04-09] MEDS: DECADRON 4 MG/ML SDV IVP SCH (09:07)
[2017-04-09] MEDS: LOVENOX SUBCUT SCH (09:07)
[2017-04-09] MEDS: VITAMIN D PO SCH (09:08)
[2017-04-09] MEDS: PLAVIX PO SCH (09:08)
[2017-04-09] MEDS: CARDIZEM CD PO SCH (09:08)
[2017-04-09] MEDS: ASPIRIN CHEWABLE PO SCH (09:08)
[2017-04-09] MEDS: SORBITRATE PO SCH (09:08)
--- NOTE | 2017-04-09 09:51 | CM.DICTOOL ---
ADMISSION: 04/05/17 15:15 DISCHARGE: 04/09/17 DATE OF SERVICE: 04/09/17 FINAL DIAGNOSIS INFLUENZA A PNEUMONIA, LOWER LOBES (CT CHEST, 04/05/17) BIBASILAR ATELECTASIS (CT CHEST, 04/05/17) GALLBLADDER DISTENSION (CT ABD/PELVIS, 04/05/17) DEHYDRATION GASTROENTERITIS CAD/OH S/P STENT APPLICATION AND PACER HYPERTENSION DYSLIPIDEMIA HYPOTHYROID DISEASE CONGESTIVE HEART FAILURE GERD KNEE SURGERIES X2 PACEMAKER INSERTION CARDIAC STENT APPLICATION SHOULDER AND FOREARM FRACTURES AND REPAIR (TRAUMATIC) HERNIA REPAIR X2 NEVER A SMOKER LAST VITALS Temp Pulse Resp BP Pulse Ox 98.2 F 70 16 118/71 98 04/09/17 06:00 04/09/17 06:00 04/09/17 06:00 04/09/17 06:00 04/09/17 06:00 ACTIVE HOME MEDICATIONS Alprazolam (Xanax) 1 mg PO BEDTIME [facility] Last Admin: 04/08/17 20:44 Dose: 1 mg Aspirin (Aspirin Chewable) 81 mg PO DAILYWM [facility] Last Admin: 04/09/17 09:08 Dose: 81 mg Cholecalciferol (Vitamin D) 1,000 unit PO DAILY [facility] Last Admin: 04/09/17 09:08 Dose: 1,000 unit Clopidogrel Bisulfate (Plavix) 75 mg PO DAILY [facility] Last Admin: 04/09/17 09:08 Dose: 75 mg Diltiazem HCl (Cartia XT) 180 mg PO DAILY [facility] Last Admin: 04/09/17 09:08 Dose: 180 mg Diphenhydramine HCl (Benadryl) 25 mg PO BEDTIME [facility] Last Admin: 04/08/17 20:43 Dose: 25 mg Docusate Sodium (Colace) 100 mg PO BEDTIME [facility] Last Admin: 04/08/17 20:43 Dose: 100 mg Esmeprazole Magnesium (Nexium) 40 mg PO DAILY Isosorbide Dinitrate (Sorbitrate) 20 mg PO BID [facility] Last Admin: 04/09/17 09:08 Dose: 20 mg Levothyroxine Sodium (Synthroid) 100 mcg PO Q48H [facility] Last Admin: 04/08/17 11:03 Dose: 100 mcg Terazosin HCl (Hytrin) 5 mg PO BEDTIME [facility] Last Admin: 04/08/17 20:43 Dose: 5 mg Lovastatin (Mevacor) 20 mg PO QPM PATIENT INSTRUCTED TO HOLD ALLERGIES No Known Allergies Allergy (Verified 04/04/17 17:58) NEW PRESCRIPTIONS: KEFLEX 500 MG, TAKE ONE CAPSULE BY MOUTH THREE TIMES DAILY FOR 7 DAYS PREDNISONE 10 MG, TAKE ONE TABLET BY MOUTH TWICE DAILY FOR 5 DAYS SMOKING: NEVER A SMOKER DISEASE SPECIFIC EDUCATION: PNEUMONIA INFLUENZA A AND PREVENTION OF SPREAD DEHYDRATION GASTROENTERITIS HOME MEDICATIONS NEW PRESCRIPTIONS FOLLOW UP LAB REVIEW: 04/09/17 04:30 04/09/17 04:30 04/09/17 04:30: Sodium 140, Potassium 3.8, Chloride 106, Carbon Dioxide 27, Anion Gap 10.8, BUN 19 H, Creatinine 0.94, Estimated GFR (MDRD) 76.00, BUN/ Creatinine Ratio 20.21, Glucose 132 H, Calcium 8.5, Total Bilirubin 0.7, AST 87 H D, ALT 138 H D, Alkaline Phosphatase 84, Total Protein 6.0, Albumin 3.0 L, Globulin 3.0, Albumin/Globulin Ratio 1.00 04/09/17 04:30: WBC 6.46, RBC 3.77 L, Hgb 11.5 L, Hct 33.6 L, MCV 89.1, MCH 30.5 , MCHC 34.2, RDW Coeff of Andi 14.3, Plt Count 240, Immature Gran % (Auto) 0.5, Neut % (Auto) 74.2, Lymph % (Auto) 15.2, Starke % (Auto) 10.1 H, Eos % (Auto) 0.0 , Baso % (Auto) 0.0, Immature Gran # (Auto) 0.0, Neut # 4.8, Lymph # 1.0, Starke # 0.7, Eos # 0.0, Baso # 0.0 PLAN: DISCHARGE HOME TODAY RETURN TO SEE DR. OLIVER IN HIS OFFICE ON 04/15/17 AT 9:45 A.M. RESUME YOUR HOME MEDICATIONS PER LIST PROVIDED BY THE NURSING STAFF DO NOT TAKE YOUR MEVACOR UNTIL FURTHER INSTRUCTED BY DR. OLIVER NEW PRESCRIPTIONS KEFLEX 500 MG, TAKE ONE CAPSULE BY MOUTH THREE TIMES DAILY FOR 7 DAYS PREDNISONE 10 MG, TAKE ONE TABLET BY MOUTH TWICE DAILY FOR 5 DAYS ACTIVITY GET PLENTY OF REST AT HOME. GRADUALLY INCREASE YOUR ACTIVITY LEVEL ACCORDING TO YOUR TOLERATION DIET HEALTHY HEART SUMMARY THE PATIENT IS ALERT AND ORIENTED X3. HE CURRENTLY RESIDES AT HOME WITH HIS DAUGHTER AND SON-N-LAW. HE USES A CANE TO ASSIST WITH AMBULATION. OTHERWISE, HE DOES NOT REQUIRE ASSISTANCE WITH ADL'S, HOME HEALTH OR HOMEMAKING SERVICES. HE DESIRES TO RETURN TO HIS DAUGHTER'S HOME AT DISCHARGE. HIS SKIN TURGOR IS INTACT AND FREE OF DECUBITUS ULCERS. HIS NUTRITIONAL AND HYDRATION STATUS ARE GOOD. HE HAS BEEN AFEBRILE FOR GREATER THAN 24 HOURS. LABS ARE ACCEPTABLE. HE SAYS HE IS FEELING BETTER TODAY AND IS READY TO BE DISCHARGED HOME. DISCHARGE INSTRUCTIONS HAVE BEEN PROVIDED BOTH VERBALLY AND IN THE WRITTEN FORM. CURRENT CODE STATUS DO NOT RESUSCITATE ALICJA DIXON APRN DEBORA OLIVER M.D.
[2017-04-09 10:24] VITALS: BP 92/56; TEMP 97.2
--- NOTE | 2017-04-09 10:35 | PCM.PROG ---
Attending Provider: ATTENDING PROVIDER: Dr. DEBORA OLIVER This patient is seen with Pam Martinez, Nurse Practitioner. DATE OF SERVICE: 04/09/17 SUBJECTIVE: This 86 year old WHITE/ M was hospitalized 04/05/17. The patient is sitting up in bed, alert. The family is present and both agreeable to discharge today. He has been eating well. No fever, up and about and walking around. REVIEW OF SYSTEMS: CONSTITUTIONAL: Fatigue. No night sweats. No fever or chills. HEENT: Eyes: No visual changes. No eye pain. No eye discharge. ENT: No runny nose. No epistaxis. No sinus pain. No odynophagia. No congestion. RESPIRATORY: Cough. No congestion. No hemoptysis. No shortness of breath. CARDIOVASCULAR: No angina symptoms. No CHF symptoms. No atypical chest pain for CAD. No palpitations. No orthopnea.. GASTROINTESTINAL: No abdominal pain. No nausea or vomiting. No diarrhea or constipation. No hematemesis. No hematochezia. GENITOURINARY: No urgency. No frequency. No dysuria. No hematuria. No obstructive symptoms. No discharge. No pain. No significant abnormal bleeding. MUSCULOSKELETAL: No musculoskeletal pain; no joint swelling. NEUROLOGICAL: Awake, alert, oriented to time, place and person. No headache. No neck pain. No syncope. No seizures. No dizziness. PSYCHIATRIC: Not anxious. No depression. No suicidal thoughts. No homicidal thoughts. SKIN: No rash. No lesions. No wounds. ENDOCRINE: No unexplained weight loss. No weight gain. HEMATOLOGIC/LYMPHATIC: No anemia. No purpura. No petechiae. No prolonged or excessive bleeding. No palpable lymph nodes. PHYSICAL EXAMINATION: GENERAL: The patient is awake, alert and oriented, sitting in bed in no distress. VITAL SIGNS: Temperature 98.2 F, Pulse 70, Respiratory Rate 16, BP 118/71, Pulse Ox 98% HEENT: Head normocephalic, atraumatic. Eyes: Extraocular muscles are intact. Pupils are equal, round and reactive to light and accommodation. Ears: No lesions. Nose appeared normal. Throat: No exudate or erythema. NECK: Supple. No JVD, no carotid bruit. No lymphadenopathy or thyromegaly. LUNGS: Diminished breath sounds bilaterally. Clear to auscultation. Percussion note normal. Chest symmetrical. HEART: S1, S2, no S3. No murmurs. No cyanosis or clubbing. No ascites. Pulses: Dorsalis pedis and posterior tibial pulses +1 to +2 both sides. ABDOMEN: Soft. Non-tender. Bowel sounds active. No CVA tenderness. No mass felt. EXTREMITIES: No edema. Full range of motion of all extremities, equal. NEUROLOGIC: No focal deficit. Cranial nerves II through XII are grossly intact. No headache, no double vision or headache. SKIN: Not dry. Intact. Turgor-normal. LYMPHATIC: No palpable lymph nodes/no lymphedema. MUSCULOSKELETAL: Normal joints with no swelling. Muscle tone is normal. LAB REVIEW: 04/09/17 04:30 04/09/17 04:30 04/09/17 04:30: Sodium 140, Potassium 3.8, Chloride 106, Carbon Dioxide 27, Anion Gap 10.8, BUN 19 H, Creatinine 0.94, Estimated GFR (MDRD) 76.00, BUN/ Creatinine Ratio 20.21, Glucose 132 H, Calcium 8.5, Total Bilirubin 0.7, AST 87 H D, ALT 138 H D, Alkaline Phosphatase 84, Total Protein 6.0, Albumin 3.0 L, Globulin 3.0, Albumin/Globulin Ratio 1.00 04/09/17 04:30: WBC 6.46, RBC 3.77 L, Hgb 11.5 L, Hct 33.6 L, MCV 89.1, MCH 30.5 , MCHC 34.2, RDW Coeff of Andi 14.3, Plt Count 240, Immature Gran % (Auto) 0.5, Neut % (Auto) 74.2, Lymph % (Auto) 15.2, [place] % (Auto) 10.1 H, Eos % (Auto) 0.0 , Baso % (Auto) 0.0, Immature Gran # (Auto) 0.0, Neut # 4.8, Lymph # 1.0, [place] # 0.7, Eos # 0.0, Baso # 0.0 ASSESSMENT: 1. Influenza A positive 2. Small pneumonia 3. Gallbladder thickening, ultrasound normal PLAN: 1. D/C today 2. Keflex 500 t.i.d. for next 7 days 3. Prednisone 10 mg b.i.d. times 5 days 4. Hold Lovastatin until patient is seen next week, will do CMP 5. Will see next week in office 6. Gallbladder ultrasound normal 7. The patient has had no nausea, vomiting or pain. Plan and coordination of the patient's care discussed in the presence of Gyroscope Repairer and nurse. CONDITION: Stable SCRIBED BY: GARRICK STRICKLAND Behavioral Health Professional scribed while in presence of service performed by Dr. Oliver/Pam Martinez APRN on 04/09/17 ([id number])
--- NOTE | 2017-04-09 14:14 | PN ---
DATE OF SERVICE: 04/05/17 SUBJECTIVE: The patient was seen and his condition has improved. Respiratory system the patient's symptoms have lessened. His cough has lessened and his appetite has improved he is eating good breakfast this morning. REVIEW OF SYSTEMS: CONSTITUTIONAL: No night sweats. No fatigue, malaise, lethargy. No fever or chills. HEENT: Eyes: No visual changes. No eye pain. No eye discharge. ENT: No runny nose. No epistaxis. No sinus pain. No sore throat. No odynophagia. No congestion. RESPIRATORY: No cough, no congestion. No hemoptysis. No shortness of breath. CARDIOVASCULAR: No angina symptoms. No CHF symptoms. No atypical chest pain for CAD. No palpitations. No orthopnea. GASTROINTESTINAL: No abdominal pain. No nausea or vomiting. No diarrhea or constipation. No hematemesis. No hematochezia. GENITOURINARY: No urgency. No frequency. No dysuria. No hematuria. No obstructive symptoms. No discharge. No pain. No significant abnormal bleeding. MUSCULOSKELETAL: No musculoskeletal pain; no joint swelling. NEUROLOGICAL: No headache. No neck pain. No syncope. No seizures. No dizziness. PSYCHIATRIC: Not anxious. No depression. No suicidal thoughts. No homicidal thoughts. SKIN: No rash. No lesions. No wounds. ENDOCRINE: No unexplained weight loss. No weight gain. HEMATOLOGIC/LYMPHATIC: No anemia. No purpura. No petechiae. No prolonged or excessive bleeding. No palpable lymph nodes. PHYSICAL EXAMINATION: GENERAL: The patient is oriented to time, place and person. The patient's daughter in the room. VITAL SIGNS: Temperature 98, pulse 70, respiratory rate 15, blood pressure 138/ 78 and pulse ox 93% on room air. HEENT: Head normocephalic, atraumatic. Eyes: Extraocular muscles are intact. Pupils are equal, round and reactive to light and accommodation. Ears: No lesions. Nose appeared normal. Throat: No exudate or erythema. NECK: Supple. No JVD, no carotid bruit. No lymphadenopathy or thyromegaly. LUNGS: Decreased breath sounds but clear to auscultation. Percussion note normal. Chest symmetrical. HEART: S1, S2, no S3. No murmurs. No cyanosis or clubbing. No ascites. Pulses: Dorsalis pedis and posterior tibial pulses +1 to +2 both sides. ABDOMEN: Soft. Nontender. Bowel sounds active. No CVA tenderness. No mass felt. EXTREMITIES: No edema. Full range of motion of all extremities, equal. NEUROLOGIC: No focal deficit. Cranial nerves II through XII are grossly intact. No headache, no double vision or headache. SKIN: Not dry. Intact. Turgor - normal. LYMPHATIC: No palpable lymph nodes/no lymphedema. MUSCULOSKELETAL: Normal joints with no swelling. Muscle tone is normal. LABS: CT showed showed possibility to gallbladder with inflammation but the patient does not have symptoms or signs of it just radiographically finding. ASSESSMENT: 1. Pneumonia seems to be improving 2. Dehydration seems to be resolving with good skin turgor. Skin is not dry anymore 3. Coronary artery disease stable with no evidence of coronary insufficiency The patient had good breakfast and kept it down. No abdominal pain. TIME SPENT: More than 30 minutes. Plan and coordination of the patient's care discussed in the presence of nurse. LEYDA
--- NOTE | 2017-04-18 12:36 | DS ---
DATE OF SERVICE: 04/09/17 FINAL DIAGNOSIS: 1. INFLUENZA A 2. PNEUMONIA LOWER LOBES (CT CHEST 04/05/2017) 3. BIBASILAR ATELECTASIS (CT CHEST 04/05/2017) 4. GALLBLADDER DISTENTION (CT ABD/PELVIS 04/05/17) 5. DEHYDRATION 6. GASTROENTERITIS 7. 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 HYPERTENSION 9. DYSLIPIDEMIA 10. HYPOTHYROID DISEASE 11. CONGESTIVE HEART FAILURE 12. GERD 13. KNEE SURGERY TIMES TWO 14. PACEMAKER INSERTION 15. CARDIAC STENT APPLICATION 16. SHOULDER AND FOREARM FRACTURE REPAIR (TRAUMATIC) 17. HERNIA REPAIR TIMES TWO VITAL SIGNS AT DISCHARGE: Temperature 98.2, pulse 70, respiratory rate 16, blood pressure 118/71, pulse ox 98%. PLAN: 1. Discharge to home. 2. Return to see Edy Gaston in his office on 04/15/17 at 9:45. 3. Resume home medications as per the list provided by nursing staff. 4. Do not take your Mevacor until further instructed by Dr. Snow. HOME MEDICATIONS: Xanax 1 mg at bedtime Aspirin 81 mg Vitamin D 1000 units daily Plavix 75 mg daily Diltiazem 180 mg daily Benadryl 25 mg at bedtime Colace 100 mg at bedtime Nexium 40 mg daily Isosorbide 20 mg twice daily Synthroid 100 mcg every 48 hours Hytrin 5 mg at bedtime Lovastatin 20 mg every p.m.-patient instructed to hold. ALLERGIES: No known drug allergies. NEW PRESCRIPTIONS: Keflex 500 mg three times daily for 7 days Prednisone 10 mg twice daily for 5 days DIET INSTRUCTIONS: Healthy heart ACTIVITY: Get plenty of rest at home. Gradually increase your activity level according to your toleration. SMOKING: Never a smoker. DISEASE SPECIFIC EDUCATION: Pneumonia, influenza A and the prevention of spreading, dehydration, gastroenteritis, home medications, new prescriptions and follow up. HOSPITAL COURSE: This is an 86-year-old white male who presented to the emergency room with mild abdominal pain, diarrhea, nausea, vomiting, low grade fever. He had a mild cough. He was tested in the emergency room and found to be positive for Influenza A. CT of the chest revealed questionable small pneumonia vs atelectasis in the lower lobes. The CT of the abdomen revealed gallbladder distention related to gallbladder ultrasound which was normal with no gallstones or sludge. HIs kidney function was slightly elevated on admission due to dehydration. He was subsequently admitted, placed on Rocephin 1 gm IV daily along with Tamiflu 75 mg b.i.d. He was also started on Vancomycin 500 mg IV q.12hr along with Decadron 4 mg daily. Shortly after admission he became afebrile. He has had no fever since Friday. He has been up and about for the past 48 hours walking around, has been eating 75 to 100% of his meals for the past 24 hours. His liver function was found to be elevated on admission with AST around 88 and ALT around 140. His bilirubin and alkaline phosphatase were both normal. He did have a decrease in his levels yesterday, AST 55, ALT 80. The ultrasound of the gallbladder also viewed the liver which showed no abnormality there. Today, at time of discharge he is not having any cramping, nausea. No abdominal discomfort. Again he has been eating well. It is thought that the liver function is elevated due to viral illness from Influenza A however we will do a hepatitis panel before he leaves today. His labs have significantly improved from admission. White count 6.46, hemoglobin 11.5, hematocrit 33.6, platelets 240. Sodium 140, potassium 3.8, BUN 19, creatinine 0.94, glucose 132. Due to the questionable pneumonia, we will send him home on Keflex 500 mg p.o. t.i.d. for the next week along with Prednisone 10 mg b.i.d. for the next five days. He has a very minimal cough. He is no longer achy. He has responded very well with IV fluids and IV antibiotics. CT scan of the abdomen along with gallbladder inflammation showed no signs of diverticulitis, just changes associated with gastritis. He has been having normal stools. His medicine has been otherwise unchanged except we have been holding his Mevacor due to liver function. He has been instructed to hold this medication until he sees us next week in the office and we will repeat a CMP in the office in order to check his liver function. He is discharged home in stable condition. His daughter is present and agreeable to discharge today and is going to be there to help him. Vital signs are stable. Temperature 98.2, heart rate 70, respirations 16, BP 118/71, pulse ox 98%. TIME SPENT: More than 60 minutes. [facility]OO[facility]ORIAL HOSPITALAgustín
--- NOTE | 2017-04-27 13:46 | PN ---
DATE OF SERVICE: 04/08/17 SUBJECTIVE: 86-year-old white male hospitalized with pneumonia, flu type of symptoms. The patient's condition has steadily improved, feeling better, eating better. PHYSICAL EXAMINATION: HEENT: Head normocephalic, atraumatic. Eyes: Extraocular muscles are intact. Pupils are equal, round and reactive to light and accommodation. Ears: No lesions. Nose appeared normal. Throat: No exudate or erythema. NECK: Supple. No JVD, no carotid bruit. No lymphadenopathy or thyromegaly. LUNGS: Clear to auscultation. Percussion note normal. Chest symmetrical. HEART: S1, S2, no S3. No murmurs. No cyanosis or clubbing. No ascites. Pulses: Dorsalis pedis and posterior tibial pulses +1 to +2 both sides. ABDOMEN: Soft. Nontender. Bowel sounds active. No CVA tenderness. No mass felt. EXTREMITIES: No edema. Full range of motion of all extremities, equal. NEUROLOGIC: No focal deficit. Cranial nerves II through XII are grossly intact. No headache, no double vision or headache. SKIN: Not dry. Intact. Turgor - normal. LYMPHATIC: No palpable lymph nodes/no lymphedema. MUSCULOSKELETAL: Normal joints with no swelling. Muscle tone is normal. PLAN: 1. Continue all antibiotics, steroids and nebs treatment. The patient was seen and examined with nurse practitioner. TIME SPENT: More than 30 minutes. Plan and coordination of the patient's care discussed in the presence of nurse. LEYDA
--- NOTE | 2017-04-27 15:08 | PN ---
DATE OF SERVICE: 04/09/17 SUBJECTIVE: The patient was discharged today after being treated for influenza and acute bronchitis/pneumonitis. Condition has improved. PHYSICAL EXAMINATION: HEENT: Head normocephalic, atraumatic. Eyes: Extraocular muscles are intact. Pupils are equal, round and reactive to light and accommodation. Ears: No lesions. Nose appeared normal. Throat: No exudate or erythema. NECK: Supple. No JVD, no carotid bruit. No lymphadenopathy or thyromegaly. LUNGS: Clear to auscultation. Percussion note normal. Chest symmetrical. HEART: S1, S2, no S3. No murmurs. No cyanosis or clubbing. No ascites. Pulses: Dorsalis pedis and posterior tibial pulses +1 to +2 both sides. ABDOMEN: Soft. Nontender. Bowel sounds active. No CVA tenderness. No mass felt. EXTREMITIES: No edema. Full range of motion of all extremities, equal. NEUROLOGIC: No focal deficit. Cranial nerves II through XII are grossly intact. No headache, no double vision or headache. SKIN: Not dry. Intact. Turgor - normal. LYMPHATIC: No palpable lymph nodes/no lymphedema. MUSCULOSKELETAL: Normal joints with no swelling. Muscle tone is normal. ASSESSMENT: The patient had abnormal liver functions. The ultrasound was negative. Initially there was a possibility of cholecystitis and the patient will have hepatitis profile done and he will be followed for his abnormal liver enzymes as an outpatient. The patient was seen and examined with nurse practitioner. TIME SPENT: More than 30 minutes. Plan and coordination of the patient's care discussed in the presence of nurse. LEYDA
--- NOTE | 2017-04-27 15:10 | PN ---
CODING FOR BILLING 04/05/17 LEVEL 5 04/06/17 INTERMEDIATE 04/07/17 INTERMEDIATE 04/08/17 BRIEF 04/09/17 DISCHARGE MTDD
== END 2017-04-09 10:53 | disposition home or self-care (01) | DRG 194 ==
LOC: ED 17:52 → MEDSURG B 04-05 15:15
PROVIDERS: ADMIT Internal Medicine; ATTEND Internal Medicine
DX: J10.1 Influenza due to other identified influenza virus with other respiratory manifestations (principal); J98.11 Atelectasis; J18.9 Pneumonia, unspecified organism; R79.1 Abnormal coagulation profile; I10 Essential (primary) hypertension; I25.2 Old myocardial infarction; K82.8 Other specified diseases of gallbladder; K52.9 Noninfective gastroenteritis and colitis, unspecified; I25.10 Atherosclerotic heart disease of native coronary artery without angina pectoris; E78.5 Hyperlipidemia, unspecified; E03.9 Hypothyroidism, unspecified; I50.9 Heart failure, unspecified; Z95.0 Presence of cardiac pacemaker; K21.9 Gastro-esophageal reflux disease without esophagitis; Z79.02 Long term (current) use of antithrombotics/antiplatelets; Z79.899 Other long term (current) drug therapy; Z95.5 Presence of coronary angioplasty implant and graft
CPT/HCPCS: 36415; 80053; 80074; 80202; 82550; 82803; 83605; 83880; 84145; 84484; 85025; 85379; 87040; 87502; 87651; 93005; 93010; 94640; 96360; 96361; 96365; 96372; 99223; 99232; 99239; 99284

== ENCOUNTER 2017-04-16 12:55 | Inpatient (IN) ==
[2017-04-16] MEDS ORDERED: SODIUM CHLORIDE 1,000 ML IV STA (13:42)
[2017-04-16] MEDS ORDERED: ZESTORETIC 20-12.5 MG TAB PO STA (15:02)
[2017-04-16] MEDS ORDERED: ZESTRIL PO STA (15:03)
--- NOTE | 2017-04-16 15:16 | CT ---
EXAM: CT of the head without contrast History: Headaches, changing to a skin tag Technique: Multiplanar CT images through the head were obtained without the administration of IV con trast Findings: No acute calvarial abnormalities. Opacification with air fluid level within the anterior right ethmoid air cells and right frontal sinus. Mastoid air cells are clear in general. No acute c alvarial abnormalities. Intracranially the ventricular and cisternal spaces are normal in size, shape and configuration for a patient of this age. No dominant mass or midline shift. No hydrocephalous. No acute intracranial hemorrhage or abnormal extraaxial fluid collections. Periventricular and subcortical white matter hy podensities are probably age appropriate. Impression: 1. No acute intracranial process. 2. Acute right ethmoid and right frontal sinusitis.
--- NOTE | 2017-04-16 15:16 | CT ---
EXAM: CT of the chest without contrast History: Cough. Comparison: CT abdomen pelvis 04/16/2017, CT chest 04/04/2017 Technique: Multiplanar CT images through the thorax were obtained without the administration of IV c ontrast Findings: Heart is borderline enlarged. Coronary calcifications. Great vessels are grossly unremark able on this noncontrast study. No pathologically enlarged thoracic lymph nodes. Calcified granulom as again seen within the thorax. There are aortic valve calcifications. Dependent atelectasis. No consolidated pneumonia. No pleural fluid and no pneumothorax. No suspicious lung masses or lung nod ules. For details in the upper abdomen, please see dedicated CT abdomen pelvis done on the same day. No ac [place] osseous abnormalities. Degenerative changes of the spine. Impression: 1. No acute intrathoracic process. 2. Borderline cardiomegaly and coronary artery disease. There are aortic valve calcifications.
--- NOTE | 2017-04-16 15:26 | CT ---
EXAM: CT ABDOMEN AND PELVIS HISTORY: Abdominal pain, weakness TECHNIQUE: CT abdomen and pelvis without intravenous contrast. Images were reconstructed using 5 mm section thickness. Reformations were prepared. COMPARISON: 04/05/2017 FINDINGS: Diagnostic limitations exist without including contrast enhanced images. No focal hepatic or splenic lesion. No obvious gallbladder pathology. Pancreas and adrenal glands are within normal limits. N o hydronephrosis or nephrolithiasis. Subtle nonspecific bilateral perinephric fat stranding. No ure teral obstruction. Mild to moderate atherosclerotic disease. Stomach is unremarkable. No appendix identified. There is mild to moderate distal descending and si gmoid diverticulosis. Nonobstructive as that apparent postop changes of the rectum. Nonobstructive bowel gas pattern. Mild prostate enlargement. Urinary bladder within normal limits. There is no as cites. No ventral abdominal wall hernia. The bones appear demineralized. Lung bases have mild dependent at electasis. No pneumoperitoneum. IMPRESSION: 1. No obvious acute intra-abdominal or pelvic abnormality. There is mild nonspecific perinephric fa t stranding for which urinalysis could be considered if indicated. 2. Mild to moderate atherosclerosis. 3. Distal colon diverticulosis. Apparent postop changes of the rectum. Normal bowel gas pattern.
[2017-04-16] MEDS ORDERED: NITROSTAT SL PRN (16:18)
--- NOTE | 2017-04-16 16:24 | ED.PDOC ---
General ED Provider: Dr. AIDA LUCIO Chief Complaint: Weakness Stated Complaint: weakness Time Seen by Physician: 13:00 Mode of Arrival: Wheelchair Information Source: Patient Exam Limitations: No limitations Primary Care Provider: DEBORA OLIVER Nursing and Triage Documentation Reviewed and Agree: Yes Reviewed sepsis parameters & appropriate labs ordered?: Yes System Inflammatory Response Syndrome: Not Applicable Sepsis Protocol: For patient's 13 years and over: Temp is 96.8 and below OR 101 and greater Pulse >90 BPM Resp >20/minute Acutely Altered Mental Status Are patient's symptoms suggestive of a new infection, such as: -Pneumonia -Skin, Soft Tissue -Endocarditis -UTI -Bone, Joint Infection -Implantable Device -Acute Abdominal Infection -Wound Infection -Meningitis -Blood Stream Catheter Infection -Unknown System Inflammatory Response Syndrome: Not Applicable Neurological Complaint Exam - Altered Mental Status Complaint/Exam Current Mental Status: Confusion Last Known Well: 1 week Onset: Gradual Duration: 1 day Symptoms Are: Still present Timing: Intermittent Episodes Lasting: Days Initial Severity: Mild Current Severity: Mild Eye Deviation Present: No Character: Reports: Agitation, Lethargy Aggravating: Reports: None Alleviating: Reports: Spontaneous resolution Associated Signs and Symptoms: Denies: Dizziness, Weakness, Headache, Fever, Illness, Nuchal rigidity, Seizure, Nausea, Vomiting, Recently depressed, Trauma Related History: Reports: Similar episode Cardiac Risk Factors: Reports: Hypertension CVA Risk Factors: Reports: Hypertension Related Surgical History: Reports: None Carotid Bruit Present: Yes Glascow Coma Scale (see protocol): 15 Nystagmus Present: No Gag Reflex Present: Yes Meningeal Signs Positive: No Focal Weakness: Present: None Focal Sensory Loss: Present: None Gait: Normal Babinski Sign: Negative Right, Negative Left Heel to Toe Normal: No (unable ) Signs of Injury: Present: Normal findings Thrombolytics Considered: No Differential Diagnoses: Hypoxia, Hypoglycemia, TIA, CVA Review of Systems - Review Of Systems Constitutional: Reports: Malaise, Weakness Eyes: Reports: No symptoms Ears, Nose, Mouth, Throat: Reports: No symptoms Respiratory: Reports: No symptoms Cardiac: Reports: No symptoms GI: Reports: No symptoms : Reports: No symptoms Musculoskeletal: Reports: No symptoms Skin: Reports: No symptoms Neurological: Reports: Headache Endocrine: Reports: No symptoms Hematologic/Lymphatic: Reports: No symptoms All Other Systems: Reviewed and Negative Past Medical History - Past Medical History Previously Healthy: No Endocrine: Reports: Hypothyroid Cardiovascular: Reports: CAD, OR, Hypertension Respiratory: Reports: None Hematological: Reports: None Gastrointestinal: Reports: GERD Genitourinary: Reports: None Neuro/Psych: Reports: None Musculoskeletal: Reports: None Cancer: Reports: None - Surgical History General Surgical History: Reports: Stent, Heart Cath, Pacemaker, Orthopedic ( knee x2, shoulder, forearm (post trauma - 4 fractures)), Hernia Repair (x2) - Family History Family History: Reports: Unknown - Social History Smoking Status: Former smoker Hx Substance Use: No Alcohol Screening: None - Immunizations Influenza Vaccine within 12 Months: No Pneumococcal Vaccine up to Date: No Physical Exam - Physical Exam Appearance: Ill-appearing Ill-appearing: Mild Pain Distress: Mild Eyes: YONI, EOMI, Conjunctiva clear ENT: Dry mucosa Respiratory: Airway patent, Breath sounds clear, Breath sounds equal, Respirations nonlabored Cardiovascular: RRR, Pulses normal, No rub, No murmur GI/: Soft, Nontender, No masses, Bowel sounds normal, No Organomegaly Musculoskeletal: Normal strength, ROM intact, No edema, No calf tenderness Skin: Warm, Dry, Normal color Neurological: Sensation intact, Motor intact, Reflexes intact, Cranial nerves intact, Alert, Oriented Psychiatric: Affect appropriate, Mood appropriate Interpretation - Radiology Interpretation Radiology Interpretation By: Radiologist Radiology Results: No acute changes - Renal Medicine Physician Rate: Normal (underlying rythm) Rhythm: Sinus Physician Notification - Case Discussed Physician Notified: pmd Time of Notification: 16:25 Admit To: Inpatient Critical Care Note - Critical Care Note Total Time (mins): 0 Course - Course Hematology/Chemistry: 04/16/17 13:50 04/16/17 13:50 Orders, Labs, Meds: Lab Review 04/16/17 04/16/17 04/16/17 13:42 13:45 13:50 WBC 11.75 H RBC 4.16 L Hgb 13.0 L Hct 37.4 L MCV 89.9 MCH 31.3 H MCHC 34.8 RDW Coeff of Andi 14.5 Plt Count 271 Immature Gran % (Auto) 1.1 Neut % (Auto) 76.2 Lymph % (Auto) 11.8 [place] % (Auto) 10.2 H Eos % (Auto) 0.7 Baso % (Auto) 0.0 Immature Gran # (Auto) 0.1 Neut # 9.0 H Lymph # 1.4 [place] # 1.2 Eos # 0.1 Baso # 0.0 Puncture Site Lr O2 Saturation 99.0 ABG pH 7.547 H* ABG pCO2 29.3 L ABG pO2 115.0 H ABG HCO3 25.4 ABG Total CO2 26 ABG Base Excess 3 H Alok Test + O2 Delivery Device Nc Oxygen Liter Flow 2.00 Sodium Potassium Chloride Carbon Dioxide Anion Gap BUN Creatinine Estimated GFR (MDRD) BUN/Creatinine Ratio Glucose Lactic Acid Calcium Total Bilirubin AST ALT Alkaline Phosphatase Total Creatine Kinase Troponin I Total Protein Albumin Globulin Albumin/Globulin Ratio Procalcitonin TSH Free T4 Influenza A (Rapid) Negative by naat Influenza B (Rapid) Negative by naat 04/16/17 04/16/17 04/16/17 13:50 13:50 14:00 WBC RBC Hgb Hct MCV MCH MCHC RDW Coeff of Andi Plt Count Immature Gran % (Auto) Neut % (Auto) Lymph % (Auto) [place] % (Auto) Eos % (Auto) Baso % (Auto) Immature Gran # (Auto) Neut # Lymph # [place] # Eos # Baso # Puncture Site O2 Saturation ABG pH ABG pCO2 ABG pO2 ABG HCO3 ABG Total CO2 ABG Base Excess Alok Test O2 Delivery Device Oxygen Liter Flow Sodium 136 Potassium 4.1 Chloride 103 Carbon Dioxide 30 Anion Gap 7.1 BUN 19 H Creatinine 1.10 Estimated GFR (MDRD) 63.00 BUN/Creatinine Ratio 17.27 Glucose 177 H Lactic Acid 15.8 Calcium 7.8 L Total Bilirubin 0.9 AST 29 ALT 71 Alkaline Phosphatase 70 Total Creatine Kinase 18 Troponin I 0.0110 Total Protein 5.4 L Albumin 2.7 L Globulin 2.7 Albumin/Globulin Ratio 1.00 Procalcitonin < 0.05 TSH Free T4 Influenza A (Rapid) Influenza B (Rapid) 04/16/17 14:00 WBC RBC Hgb Hct MCV MCH MCHC RDW Coeff of Andi Plt Count Immature Gran % (Auto) Neut % (Auto) Lymph % (Auto) [place] % (Auto) Eos % (Auto) Baso % (Auto) Immature Gran # (Auto) Neut # Lymph # [place] # Eos # Baso # Puncture Site O2 Saturation ABG pH ABG pCO2 ABG pO2 ABG HCO3 ABG Total CO2 ABG Base Excess Alok Test O2 Delivery Device Oxygen Liter Flow Sodium Potassium Chloride Carbon Dioxide Anion Gap BUN Creatinine Estimated GFR (MDRD) BUN/Creatinine Ratio Glucose Lactic Acid Calcium Total Bilirubin AST ALT Alkaline Phosphatase Total Creatine Kinase Troponin I Total Protein Albumin Globulin Albumin/Globulin Ratio Procalcitonin TSH 0.863 Free T4 1.11 Influenza A (Rapid) Influenza B (Rapid) Orders Category Date Time Status ADMIT PATIENT INPATIENT .TO [facility] (MONITORED BED) ADMISSION 04/16/17 16: 16 Ordered ABG DRAW REQUEST Stat CARDIO 04/16/17 13:42 Completed EKG-(ED ONLY) Stat CARDIO 04/16/17 13:42 Completed EKG-(IP & OP ONLY) DAILY CARDIO 04/17/17 06:00 Ordered EKG-(IP & OP ONLY) DAILY CARDIO 04/18/17 06:00 Ordered EKG-(IP & OP ONLY) DAILY CARDIO 04/19/17 06:00 Ordered ACTIVITY .BR with BRP CARE 04/16/17 16:16 Ordered INTAKE & OUTPUT Q8HR CARE 04/16/17 16:16 Ordered TELEMETRY MONITORING TELE CARE 04/16/17 16:17 Ordered VITAL SIGNS Q4HR CARE 04/16/17 16:16 Ordered REGULAR DIET DIETARY 04/16/17 Dinner Ordered ED IV/MEDIPORT/POWERPORT .ONCE EMERGENCY 04/16/17 13:40 Active ABG Stat LAB 04/16/17 13:42 Completed BLOOD CULTURE Stat LAB 04/16/17 14:00 Received CBC W/ AUTO DIFF DAILY@0600 LAB 04/17/17 06:00 Ordered CBC W/ AUTO DIFF DAILY@0600 LAB 04/18/17 06:00 Ordered CBC W/ AUTO DIFF Stat LAB 04/16/17 13:50 Completed COMPREHENSIVE METABOLIC PANEL DAILY@0600 LAB 04/17/17 06:00 Ordered COMPREHENSIVE METABOLIC PANEL DAILY@0600 LAB 04/18/17 06:00 Ordered COMPREHENSIVE METABOLIC PANEL Stat LAB 04/16/17 13:50 Completed CREATINE KINASE Stat LAB 04/16/17 13:50 Completed FLU A/B MOLECULAR Stat LAB 04/16/17 13:45 Completed FREE T4 (FREE THYROXINE) Stat LAB 04/16/17 14:00 Completed LACTIC ACID Stat LAB 04/16/17 14:00 Completed MOLECULAR GROUP A STREP Stat LAB 04/16/17 13:45 Completed PROCALCITONIN Stat LAB 04/16/17 13:50 Completed THYROID STIMULATING HORMONE Stat LAB 04/16/17 14:00 Completed TROPONIN I Stat LAB 04/16/17 13:50 Completed URINALYSIS C & S IF INDICATED Stat LAB 04/16/17 13:40 Uncollected 0.9 % Sodium Chloride [Saline Flush] MEDS 04/16/17 13:39 Active 1 syr IVF PRN PRN Alprazolam [Alprazolam] MEDS 04/16/17 21:00 Ordered 1 mg PO BEDTIME Aspirin [Aspirin Chewable] MEDS 04/17/17 08:00 Ordered 81 mg PO DAILYWM Cephalexin [Keflex] MEDS 04/16/17 21:00 Ordered 500 mg PO TID Clopidogrel Bisulfate [Plavix] MEDS 04/16/17 17:00 Ordered 75 mg PO QPM Diltiazem HCl [Cardizem Cd] MEDS 04/17/17 09:00 Ordered 180 mg PO DAILY Docusate Sodium [Colace] MEDS 04/16/17 21:00 Ordered 100 mg PO BEDTIME Esomeprazole Magnesium [Nexium] MEDS 04/17/17 09:00 Ordered 40 mg PO DAILY Isosorbide Dinitrate [Sorbitrate] MEDS 04/16/17 17:00 Ordered 20 mg PO BIDAC Levothyroxine Sodium [Synthroid] MEDS 04/18/17 09:00 Ordered 100 mcg PO EVERY OTHER DAY Nitroglycerin [Nitrostat] MEDS 04/16/17 16:18 Ordered 0.4 mg SL Q5MIN X 3 DOSES PRN Prednisone MEDS 04/17/17 08:00 Ordered 10 mg PO DAILYWM Sodium Chloride 0.9% [Sodium Chloride] 1,000 ml MEDS 04/16/17 13:42 Active IV 125 mls/hr Sodium Chloride 0.9% [Sodium Chloride] 1,000 ml MEDS 04/16/17 16:30 Ordered IV 75 mls/hr Terazosin HCl [Hytrin] MEDS 04/16/17 21:00 Ordered [address] ABDOMEN/PELVIS WO CONTRAST Stat RADS 04/16/17 13:[address] CHEST W/O CONTRAST Stat RADS 04/16/17 13:[address] HEAD W/O CONTRAST Stat RADS 04/16/17 13:40 Completed Medications Generic Name Dose Route Start Last Admin Trade Name Freq PRN Reason Stop Dose Admin Aspirin 81 mg 04/17/17 08:00 Aspirin Chewable PO DAILYWM [facility] Cephalexin 500 mg 04/16/17 21:00 Keflex PO TID [facility] Clopidogrel Bisulfate 75 mg 04/16/17 17:00 Plavix PO QPM [facility] Diltiazem HCl 180 mg 04/17/17 09:00 Cardizem Cd PO DAILY [facility] Docusate Sodium 100 mg 04/16/17 21:00 Colace PO BEDTIME [facility] Sodium Chloride 1,000 mls @ 125 mls/hr 04/16/17 13:42 04/16/17 13:54 Sodium Chloride IV 04/16/17 21:41 125 mls/hr .Q8H STA Administration Sodium Chloride 1,000 mls @ 75 mls/hr 04/16/17 16:30 Sodium Chloride IV .[id number] [facility] Isosorbide Dinitrate 20 mg 04/16/17 17:00 Sorbitrate PO BIDAC [facility] Levothyroxine Sodium 100 mcg 04/18/17 09:00 Synthroid PO EVERY OTHER DAY [facility] Nitroglycerin 0.4 mg 04/16/17 16:18 Nitrostat SL Q5MIN X 3 DOSES PRN Analgesia Non-Formulary Medication 40 mg 04/17/17 09:00 Esomeprazole Magnesium [Nexium] PO DAILY [facility] Non-Formulary Medication 1 mg 04/16/17 21:00 Alprazolam [Alprazolam] PO BEDTIME [facility] Prednisone 10 mg 04/17/17 08:00 Prednisone PO DAILYWM [facility] Sodium Chloride 1 syr 04/16/17 13:39 Saline Flush IVF PRN PRN To flush IV Terazosin HCl 5 mg 04/16/17 21:00 Hytrin PO BEDTIME [facility] Vital Signs: Temp Pulse Resp BP Pulse Ox 04/16/17 13:01 97.5 F L 69 16 71/45 L 93 L Departure - Departure Time of Disposition: 16:25 Disposition: TSF SHORT-TRM HOSP Discharge Problem: Dehydration Instructions: Weakness (ED) Condition: Good Pt referred to PMD for follow-up: Yes (admitt) IPMP verified?: Yes Allergies/Adverse Reactions: Allergies No Known Allergies Allergy (Verified 04/16/17 13:00) Home Medications: Ambulatory Orders Alprazolam 1 mg PO BEDTIME 02/13/15 Aspirin [Aspirin Chewable] 81 mg PO DAILYWM 02/13/15 Cetirizine HCl [Allergy Relief] 10 mg PO DAILY 02/13/15 Cholecalciferol (Vitamin D3) [Vitamin D3] 1,000 unit PO BEDTIME 02/13/15 Diltiazem HCl [Cartia Xt] 180 mg PO DAILY 02/13/15 Esomeprazole Magnesium [Nexium] 40 mg PO DAILY 02/13/15 Levothyroxine Sodium [Synthroid] 100 mcg PO EVERY OTHER DAY 02/13/15 Terazosin HCl [Hytrin] 5 mg PO BEDTIME 02/13/15 Nitroglycerin [Nitrostat] 0.4 mg SL Q5MIN X 3 DOSES PRN #1 tab.subl 02/14/15 Clopidogrel Bisulfate [Clopidogrel] 75 mg PO QPM 04/04/17 Diphenhydramine HCl [Benadryl] 25 mg PO DAILY 04/04/17 Isosorbide Dinitrate 20 mg PO BIDAC 04/04/17 Docusate Sodium [Colace] 100 mg PO BEDTIME 04/07/17 Cephalexin [Keflex] 500 mg PO TID #21 capsule 04/09/17 Prednisone 10 mg PO DAILYWM 04/16/17
[2017-04-16 17:19] VITALS: BMI 22.8
[2017-04-16] MEDS: PLAVIX PO SCH (17:55)
[2017-04-16] MEDS: SORBITRATE PO SCH (17:55)
[2017-04-16] MEDS: HYTRIN PO SCH (20:59)
[2017-04-16] MEDS: COLACE PO SCH (20:59)
[2017-04-16] MEDS: KEFLEX PO SCH (20:59)
[2017-04-16] MEDS ORDERED: NON-FORMULARY MEDICATION (Alprazolam [Alprazolam] 1 MG) PO SCH (21:00)
[2017-04-16] MEDS: XANAX PO SCH (21:00)
[2017-04-16] MEDS: SODIUM CHLORIDE 1,000 ML IV SCH (22:50)
[2017-04-17] MEDS: PROTONIX PO SCH (05:49)
[2017-04-17] MEDS: SORBITRATE PO SCH (05:49)
[2017-04-17] MEDS ORDERED: CARDIZEM CD PO SCH (09:00)
[2017-04-17] MEDS ORDERED: NON-FORMULARY MEDICATION (Esomeprazole Magnesium [Nexium] 40 MG) PO SCH (09:00)
[2017-04-17] MEDS ORDERED: SORBITRATE PO SCH (09:00)
[2017-04-17] MEDS: CARDIZEM PO SCH ×2 (09:03→21:06)
[2017-04-17] MEDS: ASPIRIN CHEWABLE PO SCH (09:04)
[2017-04-17] MEDS: PREDNISONE PO SCH (09:04)
[2017-04-17] MEDS: KEFLEX PO SCH ×3 (09:04→21:06)
[2017-04-17] MEDS: SODIUM CHLORIDE 1,000 ML IV SCH ×2 (09:15→22:39)
[2017-04-17] MEDS: PLAVIX PO SCH (17:41)
[2017-04-17] MEDS ORDERED: CARDIZEM ONE (21:03)
[2017-04-17] MEDS: XANAX PO SCH (21:05)
[2017-04-17] MEDS: COLACE PO SCH (21:06)
[2017-04-17] MEDS: HYTRIN PO SCH (21:06)
[2017-04-18] MEDS: PROTONIX PO SCH (05:52)
[2017-04-18] MEDS ORDERED: SYNTHROID PO SCH ×2 (06:30→09:00)
[2017-04-18] MEDS: ASPIRIN CHEWABLE PO SCH (09:02)
[2017-04-18] MEDS: CARDIZEM PO SCH ×2 (09:02→21:19)
[2017-04-18] MEDS: KEFLEX PO SCH ×3 (09:03→21:19)
[2017-04-18] MEDS: PREDNISONE PO SCH (09:03)
[2017-04-18] MEDS: SORBITRATE PO SCH (09:03)
--- NOTE | 2017-04-18 10:01 | PCM.PROG ---
Attending Provider: ATTENDING PROVIDER: Dr. DEBORA OLIVER This patient is seen with Pam Martinez, Nurse Practitioner. DATE OF SERVICE: 04/18/17 SUBJECTIVE: This 86 year old WHITE/ M was hospitalized 04/16/17. The patient is lying in bed, alert. He has been up to bathroom and seems to be improving. REVIEW OF SYSTEMS: CONSTITUTIONAL: Weakness. No night sweats. No fever or chills. HEENT: Eyes: No visual changes. No eye pain. No eye discharge. ENT: No runny nose. No epistaxis. No sinus pain. No odynophagia. No congestion. RESPIRATORY: No cough, no congestion. No hemoptysis. No shortness of breath. CARDIOVASCULAR: No angina symptoms. No CHF symptoms. No atypical chest pain for CAD. No palpitations. No orthopnea.. GASTROINTESTINAL: No abdominal pain. No nausea or vomiting. No diarrhea or constipation. No hematemesis. No hematochezia. GENITOURINARY: No urgency. No frequency. No dysuria. No hematuria. No obstructive symptoms. No discharge. No pain. No significant abnormal bleeding. MUSCULOSKELETAL: No musculoskeletal pain; no joint swelling. NEUROLOGICAL: Awake, alert, oriented to time, place and person. No headache. No neck pain. No syncope. No seizures. No dizziness. PSYCHIATRIC: Not anxious. No depression. No suicidal thoughts. No homicidal thoughts. SKIN: No rash. No lesions. No wounds. ENDOCRINE: No unexplained weight loss. No weight gain. HEMATOLOGIC/LYMPHATIC: No anemia. No purpura. No petechiae. No prolonged or excessive bleeding. No palpable lymph nodes. PHYSICAL EXAMINATION: GENERAL: The patient is awake, alert and oriented, lying in bed in no distress. VITAL SIGNS: Temperature 97.7 F, Pulse 70, Respiratory Rate 20, BP 114/66, Pulse Ox 96% HEENT: Head normocephalic, atraumatic. Eyes: Extraocular muscles are intact. Pupils are equal, round and reactive to light and accommodation. Ears: No lesions. Nose appeared normal. Throat: No exudate or erythema. NECK: Supple. No JVD, no carotid bruit. No lymphadenopathy or thyromegaly. LUNGS: Diminished breath sounds bilaterally. Clear to auscultation. Percussion note normal. Chest symmetrical. HEART: S1, S2, no S3. No murmurs. No cyanosis or clubbing. No ascites. Pulses: Dorsalis pedis and posterior tibial pulses +1 to +2 both sides. ABDOMEN: Soft. Non-tender. Bowel sounds active. No CVA tenderness. No mass felt. EXTREMITIES: No edema. Full range of motion of all extremities, equal. NEUROLOGIC: No focal deficit. Cranial nerves II through XII are grossly intact. No headache, no double vision or headache. SKIN: Not dry. Intact. Turgor-normal. LYMPHATIC: No palpable lymph nodes/no lymphedema. MUSCULOSKELETAL: Normal joints with no swelling. Muscle tone is normal. LAB REVIEW: 04/18/17 04:55 04/18/17 04:55 04/18/17 04:55: Sodium 140, Potassium 3.6, Chloride 109 H, Carbon Dioxide 25, Anion Gap 9.6, BUN 12, Creatinine 0.84, Estimated GFR (MDRD) 86.00, BUN/ Creatinine Ratio 14.28, Glucose 127 H, Calcium 8.4, Total Bilirubin 1.0, AST 19 , ALT 49, Alkaline Phosphatase 62, Total Protein 5.7 L, Albumin 2.6 L, Globulin 3.1, Albumin/Globulin Ratio 0.84 04/18/17 04:55: WBC 11.95 H, RBC 3.99 L, Hgb 12.4 L, Hct 35.7 L, MCV 89.5, MCH 31.1 H, MCHC 34.7, RDW Coeff of Andi 14.4, Plt Count 255, Immature Gran % (Auto) 0.3, Neut % (Auto) 73.2, Lymph % (Auto) 16.6, [place] % (Auto) 9.5, Eos % (Auto) 0.3, Baso % (Auto) 0.1, Immature Gran # (Auto) 0.0, Neut # 8.7 H, Lymph # 2.0, [place] # 1.1, Eos # 0.0, Baso # 0.0 ASSESSMENT: 1. GENERALIZED WEAKNESS 2. DEHYDRATION, RESOLVED 3. HYPOTENSION IMPROVING PLAN: PT evaluation Plan and coordination of the patient's care discussed in the presence of Check Processor and nurse. CONDITION: Stable SCRIBED BY: GARRICK STRICKLAND Arts Education Teacher scribed while in presence of service performed by Dr. Oliver/Pam Martinez APRN on 04/18/17 ([id number])
--- NOTE | 2017-04-18 11:06 | RS.PTINEVL ---
Subjective - Patient information Date of Evaluation: 04/18/17 Date of Arrival on Unit: 04/16/17 Admitted From:: Home Diagnosis: generalized weakness, dehydration, hypotension Usual Living Arrangement: With Others Living Arrangement Comments: Lives with daughter and son in law Home Environment: House, Stairs (few), Rail Medical History: Hypertension Medical History Comments:: [place], hypothyroid, CAD, GERD, Surgical History Comments:: heart cath, pacemaker, ortho knee surgery x 2, shld and forearm sx, hernia repair x 2 Medications: see chart Subjective Information/ Patient Comments:: pt states " I am cold and didn't eat any breakfast because I was waiting on doctor" - Level of function Prior to this admission, the patient could do the following:: Independent Selfcare, Independent ADL's, Independent Ambulation, 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 prior to this admission: pt amb with cane but has been using rwx the last 2 weeks Current Level of Function: Partially Dependent Current Equipment Used at Home: has cane, rwx Interventions - Objective Patient Orientation: Person, Place, Time, Situation Current Interventions: IV's, Telemetry Range of Motion - ROM Right Upper Extremity AROM: WFL's Left Upper Extremity AROM: WFL's Right Lower Extremity AROM: WFL's Left Lower Extremity AROM: WFL's Muscle Strength - Muscle Strength Right Upper Extremity Strength: Mild Weakness (shld flex 4-/5, elbow flex/ext 4/ 5, 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) Left Upper Extremity Strength: Mild Weakness (shld flex 4-/5, elbow flex/ext 4/5 , 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) Right Lower Extremity Strength: Mild Weakness (hip flex 4-/5, knee flex/ext 4/5 , ankle DF/PF 4/5) Left Lower Extremity Strength: Mild Weakness (hip flex 4-/5, knee flex/ext 4-/5 , ankle Df/PF 4/5) Sensation - Sensation Right Upper Extremity Sensation: Intact/Normal Left Upper Extremity Sensation: Intact/Normal Right Lower Extremity Sensation: Impaired Left Lower Extremity Sensation: Impaired Comments: states at night feet feel asleep, currently equal and intact to light touch Balance - Sitting Balance and Reactions Static Sitting Balance: Good Dynamic Sitting Balance: Good Sitting Equilibrium Reactions: Within Normal Limits Left, Within Normal Limit Right Sitting Protective Reactions: Within Normal Limits Left, Within Normal Limit Right - Standing Balance and Reactions Static Standing Balance: Good Dynamic Standing Balance: Fair Standing Equilibrium Reactions: Delayed Left, Delayed Right Standing Protective Reactions: Delayed Left, Delayed Right - Comments Balance Assessment Comments: Tinetti score: Functional Mobility - Bed Mobility Rolling R/L: Independent Scooting: Independent Supine to Sit: Supervision Sit to Supine: Supervision - Transfers Sit to Stand: CGA Stand to Sit: Supervision - Safety Awareness Safety Awareness: Good Ambulation - Ambulation Assistive Device Used: Rolling Walker Orthotic/Prosthetic Device: No Distance: 150ft Assistance needed with Ambulation: CGA Gait Deviations: Forward posture, Short stride Ambulation Comments: pt amb with flexed posture. pt with no LOB during gait. Factors Affecting Ambulation: Decreased Balance, Weakness, Limited Endurance Treatment time - Time with patient Total treatment time: 28 Patient Education - Education Patient Education: Home Safety, Education of Plan of Care Teaching Recipient: Patient Teaching Methods: Discussion (discussion with patient regarding home safety and POC) Assessment - Assessment Problem List:: Decreased level of function, Requires training/education, Decreased safety/Risk of falls, Weakness Rehab Potential: Good Further Therapy Indicated?: Yes Comments: Feel pt would benefit from PT short term to work on improving LE strength and balance to improve safety with functional mobility. Short Term Goals GOAL #1: pt transfer sup to/from sit independently, sit to/from stand SBA Goal to be met by: 04/22/17 GOAL #2: pt amb with rwx 150ft with improved posture with CGA to SBA Goal to be met by: 04/21/17 Culled Fruit Packer Goals GOAL #1: pt with improved strength BLE 4 to 4+/5 independent with HEP Goal to be met by: 04/24/17 GOAL #2: pt amb with rwx functional household distances with no LOB with SBA Goal to be met by: 04/24/17 GOAL #3: pt demonstrate improved dyn stand balance as noted by tinetti score Goal to be met by: 04/24/17 Plan Plan of Care: Therapeutic EX, Therapeutic Activity Other:: gait training Frequency of Treatment: 1-2 X day, as tolerated Duration of Treatment: 6 days Anticipated Discharge Destination: Home Has the Physician been added for Co-signature?: Yes
--- NOTE | 2017-04-18 11:55 | HP ---
DATE OF SERVICE: 04/16/17 REASON FOR HOSPITALIZATION: Hypotension and weakness HISTORY OF PRESENT ILLNESS: Avel Eric 86 year old white male was brought to the emergency room after his daughter was instructed to do that. I examined the patient in the emergency room where his systolic blood pressure was 70 and he was barely responsive and unable to raise his hands on command but he listened. His eyes were closed but he could understand me. The patient was dehydration according to the daughter who takes care of him. The patient hasn't been eating much for past 18 hours. PAST MEDICAL HISTORY: The patient had influenza with pneumonia just a week ago for which he stayed in the hospital for 4-5 days and was discharged in stable condition. His other problems are: Coronary artery disease, torturous coronary arteries Hypertension Benign prostatic hypertrophy Hypothyroidism. REVIEW OF SYSTEMS: CONSTITUTIONAL: No night sweats. Fatigue and weakness. No fever or chills. HEENT: Eyes: No visual changes. No eye pain. No eye discharge. ENT: No runny nose. No epistaxis. No sinus pain. No sore throat. No odynophagia. No ear pain. No congestion. RESPIRATORY: Mild cough, no congestion. No hemoptysis. No shortness of breath. CARDIOVASCULAR: No angina symptoms. No CHF symptoms. No atypical chest pain for CAD. No palpitations. No orthopnea. No PND. GASTROINTESTINAL: No abdominal pain. No nausea or vomiting. No diarrhea or constipation. No hematemesis. No hematochezia. GENITOURINARY: No urgency. No frequency. No dysuria. No hematuria. No obstructive symptoms. No discharge. No pain. No significant abnormal bleeding. MUSCULOSKELETAL: No musculoskeletal pain. No joint swelling. No arthritis. Weakness and achy feeling. NEUROLOGICAL: No headache. No neck pain. No syncope. No seizures. Dizziness. Light headedness. PSYCHIATRIC: Not anxious. No depression. No suicidal thoughts. No homicidal thoughts. Confusion. SKIN: No rash. No lesions. No wounds. ENDOCRINE: No unexplained weight loss. No weight gain. HEMATOLOGIC/LYMPHATIC: No anemia. No purpura. No petechiae. No prolonged or excessive bleeding. No palpable lymph nodes. PERSONAL/FAMILY/SOCIAL HISTORY: The patient is with nonsmoker and no alcohol abuse. He does all activity of daily living. MEDICATIONS: Xanax Aspirin Diltazem 180mg PO daily Nexium 40mg PO daily Synthroid 100mg Po daily Hytrin 5mg PO bedtime Nitroglycerin PRN Plavix 75mg PO daily Isosorbide 20mg twice a day Prednisone 10mg PO daily ALLERGIES: No known allergies PHYSICAL EXAMINATION: GENERAL: The patient is kind of sleepy and eyes closed. Responses to verbal commands but unable to move his extremities. VITAL SIGNS: Temperature 97.5, pulse 69, respiratory rate 16, blood pressure 70 /45 and pulse ox 93. HEENT: Head normocephalic, atraumatic. Eyes: Extraocular muscles are intact. Pupils are equal, round and reactive to light and accommodation. Ears: No lesions. Nose appeared normal. Throat: No exudate or erythema. NECK: Supple. No JVD, no carotid bruit. No lymphadenopathy or thyromegaly. LUNGS: Decreased breath sounds but clear to auscultation. Percussion note normal. Chest symmetrical. HEART: S1, S2, no S3. No murmurs. No cyanosis or clubbing. No ascites. Pulses: Dorsalis pedis and posterior tibial pulses +1 to +2 both sides. ABDOMEN: Soft. Nontender. Bowel sounds active. No CVA tenderness. No mass felt. EXTREMITIES: No edema. Full range of motion of all extremities, equal. NEUROLOGIC: No focal deficit. Cranial nerves II through XII are grossly intact. No headache, no double vision or headache. Tendon reflexes +1. Moving all extremities with painful stimulus. SKIN: Dry. Intact. Turgor - normal. Mucosa membrane dry. LYMPHATIC: No palpable lymph nodes/no lymphedema. MUSCULOSKELETAL: Normal joints with no swelling. Muscle tone is normal. Weak. LABS: T4 TSH normal. BNP normal, procalcitonin normal, BUN and creatinine normal. ABG' s normal on oxygen, on room air the oxygen saturation was 92%. ASSESSMENT: 1. Hypotension, etiology unknown 2. Dehydration 3. History of coronary artery disease 4. Recent history of influenza with pneumonia 5. Hypertension 6. Hypothyroidism PLAN: 1. Give IV fluids 2. Watch for fluid overload 3. Telemetry 4. Cardiac markers 5. EKG 6. Steroids CONDITION: Stable TIME SPENT: More than 70 minutes. MTDD
--- NOTE | 2017-04-18 12:54 | PN ---
DATE OF SERVICE: 04/17/17 SUBJECTIVE: The patient is doing well, awake, talking and had good breakfast. His daughter in the room. REVIEW OF SYSTEMS: CONSTITUTIONAL: No night sweats. No fatigue, malaise, lethargy. No fever or chills. HEENT: Eyes: No visual changes. No eye pain. No eye discharge. ENT: No runny nose. No epistaxis. No sinus pain. No sore throat. No odynophagia. No congestion. RESPIRATORY: No cough, no congestion. No hemoptysis. No shortness of breath. CARDIOVASCULAR: No angina symptoms. No CHF symptoms. No atypical chest pain for CAD. No palpitations. No orthopnea. GASTROINTESTINAL: No abdominal pain. No nausea or vomiting. No diarrhea or constipation. No hematemesis. No hematochezia. GENITOURINARY: No urgency. No frequency. No dysuria. No hematuria. No obstructive symptoms. No discharge. No pain. No significant abnormal bleeding. MUSCULOSKELETAL: No musculoskeletal pain; no joint swelling. NEUROLOGICAL: No headache. No neck pain. No syncope. No seizures. No dizziness. PSYCHIATRIC: Not anxious. No depression. No suicidal thoughts. No homicidal thoughts. SKIN: No rash. No lesions. No wounds. ENDOCRINE: No unexplained weight loss. No weight gain. HEMATOLOGIC/LYMPHATIC: No anemia. No purpura. No petechiae. No prolonged or excessive bleeding. No palpable lymph nodes. PHYSICAL EXAMINATION: GENERAL: The patient is oriented to time, place and person. VITAL SIGNS: Temperature 97, pulse 69, respiratory rate 16, blood pressure 99/ 57 and pulse ox 97%. HEENT: Head normocephalic, atraumatic. Eyes: Extraocular muscles are intact. Pupils are equal, round and reactive to light and accommodation. Ears: No lesions. Nose appeared normal. Throat: No exudate or erythema. NECK: Supple. No JVD, no carotid bruit. No lymphadenopathy or thyromegaly. LUNGS: Decreased breath sounds but clear to auscultation. Percussion note normal. Chest symmetrical. HEART: S1, S2, no S3. No murmurs. No cyanosis or clubbing. No ascites. Pulses: Dorsalis pedis and posterior tibial pulses +1 to +2 both sides. ABDOMEN: Soft. Nontender. Bowel sounds active. No CVA tenderness. No mass felt. EXTREMITIES: No edema. Full range of motion of all extremities, equal. NEUROLOGIC: No focal deficit. Cranial nerves II through XII are grossly intact. No headache, no double vision or headache. SKIN: Not dry. Intact. Turgor - normal. LYMPHATIC: No palpable lymph nodes/no lymphedema. MUSCULOSKELETAL: Normal joints with no swelling. Muscle tone is normal. LABS: Hgb 11, hct 32, WBC 13,000 normal differential, creatinine 0.6, BUN 14. ASSESSMENT: 1. Dehydration 2. Hypotension seems to be resolving. The patient is feeling better. 3. Status post influenza with status post pneumonia 4. Coronary artery disease seems to be stable. PLAN: 1. Continue IV hydration 2. Watch for fluid overload which patient doesn't have. CONDITION: Stable TIME SPENT: More than 30 minutes. Plan and coordination of the patient's care discussed in the presence of nurse. LEYDA
--- NOTE | 2017-04-18 15:34 | PN ---
DATE OF SERVICE: 04/16/17 SUBJECTIVE: The patient was seen in the emergency room as he came with hypotension and drowsy. The patient's daughter had called earlier to the office and from that the patient's blood pressure has been running 70 and he has been extremely week so she was instructed to take her dad to emergency room at [facility]. When I examined the patient in the emergency room he was lethargic and barely responded to verbal stimulus. According to the daughter he was able to walk barely to the car with the walker. PHYSICAL EXAMINATION: VITAL SIGNS: Systolic blood pressure was 70-80. pulse was strong. HEENT: Head normocephalic, atraumatic. Eyes: Extraocular muscles are intact. Pupils are equal, round and reactive to light and accommodation. Ears: No lesions. Nose appeared normal. Throat: No exudate or erythema. NECK: Supple. No JVD, no carotid bruit. No lymphadenopathy or thyromegaly. LUNGS: Decreased breath sounds but clear to auscultation. Percussion note normal. Chest symmetrical. HEART: S1, S2, no S3. No murmurs. No cyanosis or clubbing. No ascites. Pulses: Dorsalis pedis and posterior tibial pulses +1 to +2 both sides. ABDOMEN: Soft. Nontender. Bowel sounds active. No CVA tenderness. No mass felt. EXTREMITIES: No edema. Full range of motion of all extremities, equal. NEUROLOGIC: No focal deficit. Cranial nerves II through XII are grossly intact. No headache, no double vision or headache. A little bit confused. SKIN: Not dry. Intact. Turgor - normal. LYMPHATIC: No palpable lymph nodes/no lymphedema. MUSCULOSKELETAL: Normal joints with no swelling. Muscle tone is normal. LABS: All labs were acceptable. ASSESSMENT: 1. Dehydration with hypotension 2. History of coronary artery disease 3. History of recent influenza PLAN: 1. Give IV fluids 2. Watch for fluid overload 3. Telemetry CONDITION: Stable. TIME SPENT: More than 30 minutes. Plan and coordination of the patient's care discussed in the presence of nurse. LEYDA
[2017-04-18] MEDS: PLAVIX PO SCH (16:21)
[2017-04-18] MEDS: SODIUM CHLORIDE 1,000 ML IV SCH (17:32)
[2017-04-18] MEDS: XANAX PO SCH (21:19)
[2017-04-18] MEDS: HYTRIN PO SCH (21:19)
[2017-04-18] MEDS: COLACE PO SCH (21:19)
[2017-04-19] MEDS: PROTONIX PO SCH (05:53)
[2017-04-19] MEDS: ASPIRIN CHEWABLE PO SCH (08:40)
[2017-04-19] MEDS: SORBITRATE PO SCH (08:41)
[2017-04-19] MEDS: KEFLEX PO SCH ×3 (08:41→20:01)
[2017-04-19] MEDS: PREDNISONE PO SCH (08:41)
[2017-04-19] MEDS: CARDIZEM PO SCH ×2 (08:41→20:01)
[2017-04-19] MEDS: PLAVIX PO SCH (17:08)
[2017-04-19] MEDS: COLACE PO SCH (20:01)
[2017-04-19] MEDS: XANAX PO SCH (20:01)
[2017-04-19] MEDS: HYTRIN PO SCH (20:01)
[2017-04-20] MEDS: PROTONIX PO SCH (05:38)
[2017-04-20] MEDS ORDERED: SYNTHROID PO SCH (06:30)
[2017-04-20] MEDS: KEFLEX PO SCH ×3 (08:53→20:15)
[2017-04-20] MEDS: SORBITRATE PO SCH (08:53)
[2017-04-20] MEDS: PREDNISONE PO SCH (08:53)
[2017-04-20] MEDS: CARDIZEM PO SCH ×2 (08:53→20:15)
[2017-04-20] MEDS: ASPIRIN CHEWABLE PO SCH (08:53)
[2017-04-20] MEDS: PLAVIX PO SCH (17:38)
[2017-04-20] MEDS: HYTRIN PO SCH (20:15)
[2017-04-20] MEDS: COLACE PO SCH (20:16)
[2017-04-20] MEDS: XANAX PO SCH (20:20)
[2017-04-21] MEDS: PROTONIX PO SCH (05:37)
[2017-04-21] MEDS: PREDNISONE PO SCH (08:20)
[2017-04-21] MEDS: ASPIRIN CHEWABLE PO SCH (08:20)
[2017-04-21] MEDS: KEFLEX PO SCH (08:20)
[2017-04-21] MEDS: CARDIZEM PO SCH (08:20)
[2017-04-21] MEDS: SORBITRATE PO SCH (08:20)
--- NOTE | 2017-04-21 09:19 | PN ---
DATE OF SERVICE: 04/19/17 SUBJECTIVE: 86 year old white male hospitalized with dehydration after influenza, pneumonia. The patient came back within couple of days because of dehydration, inability to eating and extreme weakness. The patient was unable to even open his eyes or raise his hands. His systolic blood pressure was 60. The patient's condition considering that has improved remarkably. He is up and about and he walked twice around the nursing station twice yesterday. His appetite has improved. REVIEW OF SYSTEMS: CONSTITUTIONAL: No night sweats. No fatigue, malaise, lethargy. No fever or chills. Still persistent weakness but improvement in it. HEENT: Eyes: No visual changes. No eye pain. No eye discharge. ENT: No runny nose. No epistaxis. No sinus pain. No sore throat. No odynophagia. No congestion. RESPIRATORY: No cough, no congestion. No hemoptysis. No shortness of breath. CARDIOVASCULAR: No angina symptoms. No CHF symptoms. No atypical chest pain for CAD. No palpitations. No orthopnea. GASTROINTESTINAL: No abdominal pain. No nausea or vomiting. No diarrhea or constipation. No hematemesis. No hematochezia.Appetite has improved. GENITOURINARY: No urgency. No frequency. No dysuria. No hematuria. No obstructive symptoms. No discharge. No pain. No significant abnormal bleeding. MUSCULOSKELETAL: No musculoskeletal pain; no joint swelling. NEUROLOGICAL: No headache. No neck pain. No syncope. No seizures. No dizziness. PSYCHIATRIC: Not anxious. No depression. No suicidal thoughts. No homicidal thoughts. SKIN: No rash. No lesions. No wounds. ENDOCRINE: No unexplained weight loss. No weight gain. HEMATOLOGIC/LYMPHATIC: No anemia. No purpura. No petechiae. No prolonged or excessive bleeding. No palpable lymph nodes. PHYSICAL EXAMINATION: VITAL SIGNS: Temperature 97.7, pulse 70. respiratory rate 16, blood pressure 115/72 and pulse ox 97%. HEENT: Head normocephalic, atraumatic. Eyes: Extraocular muscles are intact. Pupils are equal, round and reactive to light and accommodation. Ears: No lesions. Nose appeared normal. Throat: No exudate or erythema. NECK: Supple. No JVD, no carotid bruit. No lymphadenopathy or thyromegaly. LUNGS: Decreased breath sounds. Percussion note normal. Chest symmetrical. HEART: S1, S2, no S3. No murmurs. No cyanosis or clubbing. No ascites. Pulses: Dorsalis pedis and posterior tibial pulses +1 to +2 both sides. ABDOMEN: Soft. Nontender. Bowel sounds active. No CVA tenderness. No mass felt. EXTREMITIES: No edema. Full range of motion of all extremities, equal. NEUROLOGIC: No focal deficit. Cranial nerves II through XII are grossly intact. No headache, no double vision or headache. SKIN: Not dry. Intact. Turgor - normal. LYMPHATIC: No palpable lymph nodes/no lymphedema. MUSCULOSKELETAL: Normal joints with no swelling. Muscle tone is normal. LABS: Hgb 12.2, hct 35, WBC 11,000 normal differential, creatinine 0.8, BUN 12, potassium 3.7, T4 TSH normal ASSESSMENT: 1. Dehydration with severe hypotension seems to have resolved 2. Influenza/pneumonia seems to be under control 3. Coronary artery disease PLAN: 1. Discontinue IV fluids 2. Encourage the patient to eat 3. The patient says that he is more short of breath then usual but has no evidence of CHF. Will do echocardiogram to evaluate LV function CONDITION: Stable. 2. 3. TIME SPENT: More than 30 minutes. Plan and coordination of the patient's care discussed in the presence of nurse. LEYDA
[2017-04-21 10:04] VITALS: BP 89/66; TEMP 97.4
--- NOTE | 2017-04-21 10:07 | CM.DICTOOL ---
ADMISSION: 04/16/17 16:26 DISCHARGE: 2017 DATE OF SERVICE: 04/21/17 FINAL DIAGNOSIS Dehydration Hypotension History of recent pneumonia with influenza Acute Sinusitis, Right Ethmoid and Right Frontal per CT 04/16/2017 CAD Hypertension Osteoarthritis GERD Hypothyroid BPH Diverticulosis, per CT Pacemaker Stent Application Hernia Surgery, 1962, 2004 Shoulder and Knee Surgery LAST VITALS Temp Pulse Resp BP Pulse Ox 97.1 F L 70 20 87/62 L 96 04/21/17 05:29 04/21/17 05:29 04/21/17 05:29 04/21/17 05:29 04/21/17 05:29 ACTIVE HOME MEDICATIONS Alprazolam (Xanax) 1 mg PO BEDTIME [facility] Last Admin: 04/20/17 20:20 Dose: 1 mg Aspirin (Aspirin Chewable) 81 mg PO DAILYWM [facility] Last Admin: 04/21/17 08:20 Dose: 81 mg Clopidogrel Bisulfate (Plavix) 75 mg PO QPM [facility] Last Admin: 04/20/17 17:38 Dose: 75 mg Docusate Sodium (Colace) 100 mg PO BEDTIME [facility] Last Admin: 04/20/17 20:16 Dose: 100 mg Levothyroxine Sodium (Synthroid) 100 mcg PO Q48H [facility] Last Admin: 04/20/17 05:39 Dose: 100 mcg Nitroglycerin (Nitrostat) 0.4 mg SL Q5MIN X 3 DOSES PRN PRN Reason: Analgesia Pantoprazole Sodium (Protonix) 40 mg PO QDAC [facility] Last Admin: 04/21/17 05:37 Dose: 40 mg Terazosin HCl (Hytrin) 5 mg PO BEDTIME [facility] Last Admin: 04/20/17 20:15 Dose: 5 mg Cetirizine HCL 10 mg PO DAILY Last Admin: Cholecalciferol (Vitamin D3) 1,000 unit PO BEDTIME Last Admin: Nitroglycerin ( Nitrostat) 0.4 mg SL Q5MIN x 3DOSES PRN Chest Pain Last Admin: Diphenhydramine HCL (Benadryl) 25 mg PO DAILY Last Admin: ALLERGIES No Known Allergies Allergy (Verified 04/16/17 13:00) NEW PRESCRIPTIONS: Cardizem 60 mg daily (New Prescription) Isorsorbide Dinitrate 10 mg Daily SMOKING: Not Appplicable DISEASE SPECIFIC EDUCATION: Medication changes Appointment Activity LAB REVIEW: 04/21/17 04:30 04/21/17 04:30 04/21/17 04:30: Sodium 141, Potassium 3.7, Chloride 105, Carbon Dioxide 29, Anion Gap 10.7, BUN 16, Creatinine 0.97, Estimated GFR (MDRD) 73.00, BUN/ Creatinine Ratio 16.49, Glucose 105, Calcium 8.9, Total Bilirubin 0.7, AST 33, ALT 71, Alkaline Phosphatase 67, Total Protein 6.2, Albumin 2.7 L, Globulin 3.5 , Albumin/Globulin Ratio 0.77 04/21/17 04:30: WBC 10.88 H, RBC 3.97 L, Hgb 12.1 L, Hct 35.9 L, MCV 90.4, MCH 30.5, MCHC 33.7, RDW Coeff of Andi 14.3, Plt Count 267, Immature Gran % (Auto) 0.3, Neut % (Auto) 69.2, Lymph % (Auto) 21.8, [place] % (Auto) 7.8, Eos % (Auto) 0.8, Baso % (Auto) 0.1, Immature Gran # (Auto) 0.0, Neut # 7.5 H, Lymph # 2.4, [place] # 0.9, Eos # 0.1, Baso # 0.0 PLAN: Discharge home Diet: Heart Healthy Activity: Resume as tolerated. Use Walker for added stability with walking Change positions slowly Continue [facility] Physical and Occupational Therapy evaluation and treatment Nursing visits for Vital Signs, medications, nursing assessment Nutrition Medication changes: Stop Cardizem (Cartia XL) 180 mg daily Stop Isosorbide Dinitrate 20 mg Twice daily Stop Keflex Stop Prednisone An appointment is scheduled with Dr. Snow/Pam Martinez APRN on at 9:30 am Mr. Eric is alert and oriented x 3. He is independent with ADL's. He transfers without assistance to the chair. He is ambulatory in the room and hallway with use of a rolling walker. He has been using a rolling walker at home with ambulation. He also has a cane to use at times. He denies nausea or abdominal pain. Meal intakes are good at 75-100%. Oxygen saturations are good in the mid to upper 90's. No skin breakdown is noted. Maurisio Snow MD Pam Martinez APRN
--- NOTE | 2017-04-21 11:19 | ECHO2D ---
Date of Exam: 04/20/17 Ordering Physician: DR. DEBORA OLIVER Room #: [id number] Reason for Echo: CHEST PAIN, SOB, CAD M-Mode Normal Adult Results LV Dimensions Normal Adult Results AoV Opening excursions >1.6 1.7 LVEDD-base- 3.5-5.8 4.8 Ao root dimensions 2.0-3.7 3.6 LVESD-base- 3.1-4.6 L. Atrium dimensions 1.9-3.8 3.8 Post. Wall thickness 0.8-1.1 1.3 IV septum (thickness) 0.7-1.2 1.3 Post. Wall excursion 0.72-1.3 NORMAL Septal motion NORMAL Systolic motion R. Ventricular cavity 1.5-2.0 NORMAL LVEF 60% 58% Paradoxical septal wall motion NORMAL 2-D : 2-D M Mode Echocardiogram was performed using apical four chamber and left parasternal long and short axis views. Mitral, tricuspid and aortic valves appear to be normal. Contractility of the left ventricle seems to be normal, so is the cavity size. Left atrial cavity size and aortic root appear to be normal. There is no pericardial effusion. There is no thrombus noted in the left ventricular or left aortic cavity. No mitral valve prolapse noted. M-MODE: MV: NORMAL AV: NORMAL TV: NORMAL PV: CHAMBER SIZE: NORMAL WALL MOTION: NORMAL PERICARDIUM: NORMAL INTERPRETATION: 1. LEFT VENTRICULAR HYPERTROPHY 2. NORMAL LEFT VENTRICULAR CONTRACTILITY 3. NORMAL VALVES MTDD
--- NOTE | 2017-04-21 11:26 | PCM.PROG ---
Attending Provider: ATTENDING PROVIDER: Dr. DEBORA OLIVER This patient is seen with Pam Martinez, Nurse Practitioner. DATE OF SERVICE: 04/21/17 SUBJECTIVE: This 86 year old WHITE/ M was hospitalized 04/16/17. The patient is lying in bed, alert. He has been up walking. No dizziness. He is using a walker and is feeling stronger. He has home health already in place. REVIEW OF SYSTEMS: CONSTITUTIONAL: Fatigue. No night sweats. No fever or chills. HEENT: Eyes: No visual changes. No eye pain. No eye discharge. ENT: No runny nose. No epistaxis. No sinus pain. No odynophagia. No congestion. RESPIRATORY: No cough, no congestion. No hemoptysis. No shortness of breath. CARDIOVASCULAR: No angina symptoms. No CHF symptoms. No atypical chest pain for CAD. No palpitations. No orthopnea.. GASTROINTESTINAL: No abdominal pain. No nausea or vomiting. No diarrhea or constipation. No hematemesis. No hematochezia. GENITOURINARY: No urgency. No frequency. No dysuria. No hematuria. No obstructive symptoms. No discharge. No pain. No significant abnormal bleeding. MUSCULOSKELETAL: No musculoskeletal pain; no joint swelling. NEUROLOGICAL: Awake, alert, oriented to time, place and person. No headache. No neck pain. No syncope. No seizures. No dizziness. PSYCHIATRIC: Not anxious. No depression. No suicidal thoughts. No homicidal thoughts. SKIN: No rash. No lesions. No wounds. ENDOCRINE: No unexplained weight loss. No weight gain. HEMATOLOGIC/LYMPHATIC: No anemia. No purpura. No petechiae. No prolonged or excessive bleeding. No palpable lymph nodes. PHYSICAL EXAMINATION: GENERAL: The patient is awake, alert and oriented, lying in bed in no distress. VITAL SIGNS: Temperature 97.1 F, Pulse 70, Respiratory Rate 20, BP 87/62, Pulse Ox 96% HEENT: Head normocephalic, atraumatic. Eyes: Extraocular muscles are intact. Pupils are equal, round and reactive to light and accommodation. Ears: No lesions. Nose appeared normal. Throat: No exudate or erythema. NECK: Supple. No JVD, no carotid bruit. No lymphadenopathy or thyromegaly. LUNGS: Clear to auscultation. Percussion note normal. Chest symmetrical. HEART: S1, S2, no S3. No murmurs. No cyanosis or clubbing. No ascites. Pulses: Dorsalis pedis and posterior tibial pulses +1 to +2 both sides. ABDOMEN: Soft. Non-tender. Bowel sounds active. No CVA tenderness. No mass felt. EXTREMITIES: No edema. Full range of motion of all extremities, equal. NEUROLOGIC: No focal deficit. Cranial nerves II through XII are grossly intact. No headache, no double vision or headache. SKIN: Not dry. Intact. Turgor-normal. LYMPHATIC: No palpable lymph nodes/no lymphedema. MUSCULOSKELETAL: Normal joints with no swelling. Muscle tone is normal. LAB REVIEW: 04/21/17 04:30 04/21/17 04:30 04/21/17 04:30: Sodium 141, Potassium 3.7, Chloride 105, Carbon Dioxide 29, Anion Gap 10.7, BUN 16, Creatinine 0.97, Estimated GFR (MDRD) 73.00, BUN/ Creatinine Ratio 16.49, Glucose 105, Calcium 8.9, Total Bilirubin 0.7, AST 33, ALT 71, Alkaline Phosphatase 67, Total Protein 6.2, Albumin 2.7 L, Globulin 3.5 , Albumin/Globulin Ratio 0.77 04/21/17 04:30: WBC 10.88 H, RBC 3.97 L, Hgb 12.1 L, Hct 35.9 L, MCV 90.4, MCH 30.5, MCHC 33.7, RDW Coeff of Andi 14.3, Plt Count 267, Immature Gran % (Auto) 0.3, Neut % (Auto) 69.2, Lymph % (Auto) 21.8, [place] % (Auto) 7.8, Eos % (Auto) 0.8, Baso % (Auto) 0.1, Immature Gran # (Auto) 0.0, Neut # 7.5 H, Lymph # 2.4, [place] # 0.9, Eos # 0.1, Baso # 0.0 ASSESSMENT: 1. GENERALIZED WEAKNESS 2. DEHYDRATION, RESOLVED 3. HYPOTENSION IMPROVING PLAN: 1. D/C home 2. Home Health already in place Plan and coordination of the patient's care discussed in the presence of Drip Box Tender and nurse. CONDITION: Stable SCRIBED BY: Yash YAÑEZ scribed while in presence of service performed by Dr. Oliver/Pam Martinez APRN on 04/21/17 (0821)
--- NOTE | 2017-04-23 15:14 | PN ---
DATE OF SERVICE: 04/20/16 SUBJECTIVE: 86-year-old white male hospitalized post influenza, pneumonia with weakness, dehydration and blood pressure systolic of 70. He was unable to move, extremely weak. The patient's condition has steadily improved. Yesterday he didn't feel good but today is feeling a lot better. He is going to be up and about. He is going to have physical therapy arranged at home. The daughter is in the room. The patient is feeling better, strength is coming back. The blood pressure systolic is 95. The patient had an echo done which showed normal LV contractility. REVIEW OF SYSTEMS: CONSTITUTIONAL: Mild weakness and fatigue. No night sweats. No fatigue, malaise , lethargy. No fever or chills. HEENT: Eyes: No visual changes. No eye pain. No eye discharge. ENT: No runny nose. No epistaxis. No sinus pain. No sore throat. No odynophagia. No congestion. RESPIRATORY: No cough, no congestion. No hemoptysis. Shortness of breath on exertion but no PND, no orthopnea. CARDIOVASCULAR: No angina symptoms. No CHF symptoms. No atypical chest pain for CAD. No palpitations. No orthopnea. GASTROINTESTINAL: Appetite has improved. No abdominal pain. No nausea or vomiting. No diarrhea or constipation. No hematemesis. No hematochezia. GENITOURINARY: No urgency. No frequency. No dysuria. No hematuria. No obstructive symptoms. No discharge. No pain. No significant abnormal bleeding. MUSCULOSKELETAL: No musculoskeletal pain; no joint swelling. NEUROLOGICAL: No headache. No neck pain. No syncope. No seizures. No dizziness. PSYCHIATRIC: Not anxious. No depression. No suicidal thoughts. No homicidal thoughts. SKIN: No rash. No lesions. No wounds. ENDOCRINE: No unexplained weight loss. No weight gain. HEMATOLOGIC/LYMPHATIC: No anemia. No purpura. No petechiae. No prolonged or excessive bleeding. No palpable lymph nodes. PHYSICAL EXAMINATION: GENERAL: The patient is oriented to time, place and person. VITAL SIGNS: Temperature 98.1, respiratory rate 20, BP 95/65, pulse ox 97%. HEENT: Head normocephalic, atraumatic. Eyes: Extraocular muscles are intact. Pupils are equal, round and reactive to light and accommodation. Ears: No lesions. Nose appeared normal. Throat: No exudate or erythema. NECK: Supple. No JVD, no carotid bruit. No lymphadenopathy or thyromegaly. LUNGS: Decreased breath sounds but clear to auscultation. Percussion note normal. Chest symmetrical. HEART: S1, S2, no S3. No murmurs. No cyanosis or clubbing. No ascites. Pulses: Dorsalis pedis and posterior tibial pulses +1 to +2 both sides. ABDOMEN: Soft. Nontender. Bowel sounds active. No CVA tenderness. No mass felt. EXTREMITIES: No edema. Full range of motion of all extremities, equal. NEUROLOGIC: No focal deficit. Cranial nerves II through XII are grossly intact. No headache, no double vision or headache. SKIN: Not dry. Intact. Turgor - normal. LYMPHATIC: No palpable lymph nodes/no lymphedema. MUSCULOSKELETAL: Normal joints with no swelling. Muscle tone is normal. LABS: Hemoglobin 12.3, hematocrit 35, WBC 11,000, normal differential. Creatinine 0.9 , BUN 13, potassium 3.8. ASSESSMENT: 1. DEHYDRATION SEEMS TO HAVE RESOLVED WITH GOOD SKIN TURGOR 2. HYPOTENSION SEEMS TO HAVE RESOLVED WITH BLOOD PRESSURE SYSTOLIC OVER 90 3. STATUS POST INFLUENZA/PNEMONIA SEEMS TO BE GAINING STRENGTH BACK 4. CORONARY ARTERY DISEASE, STABLE Echocardiogram done this morning showed normal LV contractility, LVH, normal valves. PLAN: 1. Will continue physical therapy at home. 2. Nutrition discussed with the patient with somewhat little increased in salt intake and more frequent meals. CONDITION: Stable. The patient is going to be likely discharged tomorrow. TIME SPENT: More than 30 minutes. Plan and coordination of the patient's care discussed in the presence of nurse. LEYDA
--- NOTE | 2017-04-24 10:45 | PN ---
DATE OF SERVICE: 04/21/17 SUBJECTIVE: The patient has improved remarkably. Dehydration has subsided. The patient is post influenza and pneumonia. The patient's weakness is a lot better. Condition is better. The patient is up and about walked quite a lot yesterday and day before yesterday. The daughter is ready to take him home. The patient will be on physical therapy as outpatient. CONDITION: Stable. TIME SPENT: More than 30 minutes. Plan and coordination of the patient's care discussed in the presence of nurse. LEYDA
--- NOTE | 2017-04-24 10:46 | PN ---
04/16/17: Level 5 04/17/17: Intermediate 04/18/17: Intermediate 04/19/17: Intermediate 04/20/17: Intermediate 04/21/17: D as discharge MTDD
--- NOTE | 2017-04-24 11:45 | PN ---
DATE OF SERVICE: 04/18/17 SUBJECTIVE: 86-year-old white male hospitalized with acute gastroenteritis. The patient's condition has improved. The patient had pneumonia, influenza and hypotension which seems to have resolved. His hydration status has improved. His blood pressure is 114/66, creatinine 0.8, BUN 12, skin turgor a lot better. He was seen and examined with the nurse practitioner. TIME SPENT: More than 30 minutes. Plan and coordination of the patient's care discussed in the presence of nurse. LEYDA
--- NOTE | 2017-05-12 14:07 | DS ---
DATE OF SERVICE: 04/21/17 FINAL DIAGNOSIS: 1. DEHYDRATION 2. HYPOTENSION 3. HISTORY OF RECENT PNEUMONIA WITH INFLUENZA 4. ACUTE SINUSITIS, RIGHT ETHMOID AND RIGHT FRONTAL PER CT 04/16/2017 5. CAD 6. HYPERTENSION 7. OSTEOARTHRITIS 8. GERD 9. HYPOTHYROID 10. BPH 11. DIVERTICULOSIS PER CT 12. PACEMAKER 13. STENT APPLICATION 14. HERNIA SURGERY, 2004 15. SHOULDER AND KNEE SURGERY DISCHARGE INSTRUCTIONS: 1. Followup appointment with Dr. Snow/Pam Martinez APRN on 04/25/17 @ 9:30 a.m. 2. Continue [facility], physical and occupational evaluation and treatment, nursing visits for vital signs, medications, nursing assessment and nutrition. MEDICATIONS AT DISCHARGE: Xanax 1 mg p.o. bedtime LIZETT Aspirin 81 mg p.o. daily with meal LIZETT Plavix 75 mg p.o. q.p.m. LIZETT Colace 100 mg p.o. bedtime LIZETT Synthroid 100 mcg p.o. q.48h LIZETT Nitrostat 0.4 mg SL q.5 min times 3 doses p.r.n. Protonix 40 mg p.o. q.d a.c. LIZETT Hytrin 5 mg p.o. bedtime LIZETT Cetirizine 10 mg p.o. daily Vitamin D3 1000 unit p.o. bedtime Nitrostat 0.4 mg SL q.5 min times three doses p.r.n. Benadryl 25 mg p.o. daily NEW PRESCRIPTIONS: Cardizem 60 mg daily (new prescription) Isosorbide Dinitrate 10 mg daily DIET INSTRUCTIONS: Heart Healthy ACTIVITY: Resume as tolerated. Use walker for added stability with walking. Change positions slowly. SMOKING: N/A DISEASE SPECIFIC EDUCATION: Medication changes Appointment Activity HOSPITAL COURSE: This is an 86-year-old white male who presented to the emergency room. He had previously been hospitalized a couple of weeks ago with acute gastroenteritis and positive influenza. He went home, came to our office for hospital followup, was experiencing severe weakness. He was still able to walk. His blood pressure was on the low side but he was asymptomatic. We ordered home health to come out to his house and start physical therapy. Subsequently, the following weekend, his weakness became worse. He was unable to walk. He was dizzy, had decreased urinary output and was brought to the emergency room. After being evaluated in the emergency room his blood pressure was extremely low 80/60. His kidney function was elevated showing mild dehydration. He was subsequently admitted, placed on IV fluids, D5 1/2 NS at 125 cc/hr. He was already on Keflex and Prednisone from a previous small pneumonia from when he was in the hospital last , that was continued orally. He was given Zofran 4 mg IV q.6hr as needed. We held his blood pressure medications. He does have a history of hypertension and atrial fibrillation which he is on Cardizem. His Cardizem was at 90. We decreased that to 60 and restarted. Over the course of several days after IV fluids, he is significantly improved. PT worked with him and found for him to be too high functioning. OT said that he could use some improvement. He has been getting up using the bathroom on his own, using a walker. He still is having low blood pressure, today 87/62. We will decrease his medication again, decrease his Isorsorbide to 10 mg daily. He had been on 20 mg b.i.d. and will decrease his Cardizem to 60 mg once a day instead of twice a day. The patient is alert, oriented and states he has been feeling well. He has been eating 75 to 100% of his meals. He has been drinking well. His dizziness has resolved and again he has improved with his weakness. We will continue with the home health order that we had previously done in the office - it is through [facility] and they will continue to come to his house and help him. He finished his course of p.o. Keflex and Prednisone and he will not be discharged home on any antibiotics. His niece is present and will be there to help him. Labs are steady today, hemoglobin 12.1, hematocrit 35.9, white count 10.88, sodium 141, potassium 3.7, BUN 16, creatinine 0.97. Vital signs are stable: Temperature 97.1, heart rate 70, respirations 20, BP 87/62, pulse ox 96% on room air. Fall precautions have been discussed. We will discharge him home in stable condition. Again, he is significantly improved. Home Health will continue with him at his home. We will followup with him in the office on the . TIME SPENT: More than 60 minutes. LEYDA
== END 2017-04-21 12:50 | disposition home or self-care (01) | DRG 641 ==
LOC: ED 12:55 → MEDSURG A 16:26
PROVIDERS: ADMIT Internal Medicine; ATTEND Internal Medicine
DX: E86.0 Dehydration (principal); I95.9 Hypotension, unspecified; R53.1 Weakness; R42 Dizziness and giddiness; R51 Headache; R41.0 Disorientation, unspecified; I51.7 Cardiomegaly; I10 Essential (primary) hypertension; J01.20 Acute ethmoidal sinusitis, unspecified; I25.10 Atherosclerotic heart disease of native coronary artery without angina pectoris; I25.2 Old myocardial infarction; M19.90 Unspecified osteoarthritis, unspecified site; K21.9 Gastro-esophageal reflux disease without esophagitis; E03.9 Hypothyroidism, unspecified; N40.0 Benign prostatic hyperplasia without lower urinary tract symptoms; Z95.0 Presence of cardiac pacemaker; Z87.01 Personal history of pneumonia (recurrent); Z86.19 Personal history of other infectious and parasitic diseases; Z79.02 Long term (current) use of antithrombotics/antiplatelets; Z79.899 Other long term (current) drug therapy; Z98.890 Other specified postprocedural states
CPT/HCPCS: 36415; 80053; 81001; 82550; 82803; 83605; 84145; 84439; 84443; 84484; 85025; 87040; 87081; 87502; 87651; 93005; 93010; 96360; 96361; 99284

== ENCOUNTER 2017-10-29 20:25 | Inpatient (IN) ==
[2017-10-29] MEDS ORDERED: SODIUM CHLORIDE 1,000 ML IV STA (20:29)
[2017-10-29] MEDS ORDERED: NITROSTAT SL STA (20:31)
--- NOTE | 2017-10-29 20:32 | ED.PDOC ---
General ED Provider: Dr. RICO GREWAL Chief Complaint: Chest Pain Stated Complaint: patient is an 87 year old male who was in his usual state of health until this afternoon when he started having rigors. With mild abdominal Time Seen by Physician: 20:29 Mode of Arrival: Ambulance Information Source: Patient, Family Exam Limitations: No limitations Primary Care Provider: DEBORA OLIVER Nursing and Triage Documentation Reviewed and Agree: Yes Does patient meet sepsis criteria?: Yes If yes, has appropriate treatment been initiated?: Yes System Inflammatory Response Syndrome: Pulse >90 BPM, Resp >20/Minute Sepsis Protocol: For patient's 13 years and over: Temp is 96.8 and below OR 101 and greater Pulse >90 BPM Resp >20/minute Acutely Altered Mental Status Are patient's symptoms suggestive of a new infection, such as: -Pneumonia -Skin, Soft Tissue -Endocarditis -UTI -Bone, Joint Infection -Implantable Device -Acute Abdominal Infection -Wound Infection -Meningitis -Blood Stream Catheter Infection -Unknown Cardiovascular Complaint Exam - Chest Pain Complaint/Exam Onset: Sudden Duration: 20 min Symptoms Are: Still present Timing: Constant Initial Severity: Moderate Current Severity: Moderate Location: Reports: Left anterior Pain Radiates: Reports: None Character: Reports: Heaviness Aggravating: Reports: None Alleviating: Reports: None Associated Signs and Symptoms: Reports: Abdominal pain. Denies: Diaphoresis, Nausea, Vomiting, Fever (but with chills ), Palpitations, Cough, Short of air Related History: Denies: Similar episode Related Surgical History: Reports: None History of Healthcare-Acquired Pneumonia: Reports: No TAD Risk Factors: Reports: None Pulmonary Embolism Risk Factors: Reports: None Prior Care for this Complaint: No Recent Stress Test: No Recent Echo/LV Function: No JVD Present: No Subcutaneous Emphysema Present: No Diminshed Breath Sounds: No Reproducible Chest Wall Pain: No Bilateral Pulses Present: No Unequal Pulses Noted: No If Risk Factors for AMI/ACS Consider: EKG, Cardiac Enzymes, Aspirin Differential Diagnoses: Acute IN, Unstable Angina, Chest Wall Pain Quality Indicators For Acute IN or Cardiac Chest Pain: EKG in 10min. Review of Systems - Review Of Systems Constitutional: Reports: Chills, Weakness Eyes: Reports: No symptoms Ears, Nose, Mouth, Throat: Reports: No symptoms Respiratory: Reports: No symptoms Cardiac: Reports: Chest pain GI: Reports: No symptoms : Reports: No symptoms Musculoskeletal: Reports: No symptoms Skin: Reports: No symptoms Neurological: Reports: Anxiety Endocrine: Reports: No symptoms Hematologic/Lymphatic: Reports: No symptoms All Other Systems: Reviewed and Negative Past Medical History - Past Medical History Previously Healthy: No Endocrine: Reports: Hypothyroid Cardiovascular: Reports: CAD, IN, Hypertension Respiratory: Reports: None Hematological: Reports: None Gastrointestinal: Reports: GERD Genitourinary: Reports: None Neuro/Psych: Reports: None Musculoskeletal: Reports: None Cancer: Reports: None - Surgical History General Surgical History: Reports: Stent, Heart Cath, Pacemaker, Orthopedic ( knee x2, shoulder, forearm (post trauma - 4 fractures)), Hernia Repair (x2) - Family History Family History: Reports: Unknown - Social History Smoking Status: Former smoker Hx Substance Use: No Alcohol Screening: None - Immunizations Influenza Vaccine within 12 Months: No Pneumococcal Vaccine up to Date: No Physical Exam - Physical Exam Appearance: Ill-appearing Ill-appearing: Moderate Pain Distress: Moderate Eyes: YONI, EOMI, Conjunctiva clear Neck: Supple Respiratory: Airway patent, Breath sounds clear, Breath sounds equal, Respirations nonlabored Cardiovascular: Pulses normal, No rub, No murmur, Tachycardia GI/: Soft, Tender (epigastric area ) Musculoskeletal: Normal strength, ROM intact, No edema, No calf tenderness Skin: Warm, Dry Neurological: Sensation intact, Motor intact, Alert, Oriented Psychiatric: Anxious Interpretation - Radiology Interpretation Radiology Interpretation By: Radiologist Radiology Results: Positive (Acute pancreatitis) Exam Interpreted: CT Scan (abdomen and pelvis ) - EKG Interpretation Time of EKG #1: 20:37 Rhythm: Other (undetermined) Ectopy: PVCs Sarah Ann: Left ST Segment: Normal Critical Care Note - Critical Care Note Total Time (mins): 40 Comments: Discussed with family that his condition is critical and that IV fluids pain medications is the best way to treat him. Course - Course Hematology/Chemistry: 10/29/17 20:43 10/29/17 20:43 Orders, Labs, Meds: Lab Review 10/29/17 10/29/17 10/29/17 20:43 20:43 20:43 WBC 20.55 H RBC 4.90 Hgb 14.7 Hct 43.3 MCV 88.4 MCH 30.0 MCHC 33.9 RDW Coeff of Andi 14.1 Plt Count 316 Immature Gran % (Auto) 0.4 Neut % (Auto) 92.0 Lymph % (Auto) 4.7 L Chaves % (Auto) 2.6 Eos % (Auto) 0.1 Baso % (Auto) 0.2 Immature Gran # (Auto) 0.1 Neut # (Auto) 18.9 H Lymph # (Auto) 1.0 Chaves # (Auto) 0.5 Eos # (Auto) 0.0 Baso # (Auto) 0.0 Puncture Site O2 Saturation ABG pH ABG pCO2 ABG pO2 ABG HCO3 ABG Total CO2 ABG Base Excess Alok Test FiO2 % Sodium 139 Potassium 3.5 Chloride 104 Carbon Dioxide 23 Anion Gap 15.5 BUN 10 Creatinine 0.94 Estimated GFR (MDRD) 76.00 BUN/Creatinine Ratio 10.63 Glucose 81 L Lactic Acid Calcium 8.7 Total Bilirubin 2.2 H AST 91 H ALT 59 Alkaline Phosphatase 80 Total Creatine Kinase 48 Troponin I < 0.0100 B-Natriuretic Peptide 46 Total Protein 7.0 Albumin 3.4 Globulin 3.6 Albumin/Globulin Ratio 0.94 Amylase 823 H* Lipase 3181 H* Procalcitonin 10/29/17 10/29/17 10/29/17 20:43 20:43 21:39 WBC RBC Hgb Hct MCV MCH MCHC RDW Coeff of Andi Plt Count Immature Gran % (Auto) Neut % (Auto) Lymph % (Auto) Chaves % (Auto) Eos % (Auto) Baso % (Auto) Immature Gran # (Auto) Neut # (Auto) Lymph # (Auto) Chaves # (Auto) Eos # (Auto) Baso # (Auto) Puncture Site Rr O2 Saturation 95.0 ABG pH 7.494 H ABG pCO2 31.2 L ABG pO2 67.0 L ABG HCO3 24 ABG Total CO2 25 ABG Base Excess 1 Alok Test + FiO2 % 21.0 Sodium Potassium Chloride Carbon Dioxide Anion Gap BUN Creatinine Estimated GFR (MDRD) BUN/Creatinine Ratio Glucose Lactic Acid 22.7 H Calcium Total Bilirubin AST ALT Alkaline Phosphatase Total Creatine Kinase Troponin I B-Natriuretic Peptide Total Protein Albumin Globulin Albumin/Globulin Ratio Amylase Lipase Procalcitonin 0.35 Orders Category Date Time Status ABG DRAW REQUEST Routine CARDIO 10/29/17 21:39 Completed EKG-(ED ONLY) Stat CARDIO 10/29/17 20:29 Completed ED FOOD AND NUTRITION PROFESSOR APPLIED .ONCE EMERGENCY 10/29/17 20:29 Active ED IV/MEDIPORT/POWERPORT .ONCE EMERGENCY 10/29/17 20:29 Active OXYGEN [ED APPLY O2] .ONCE EMERGENCY 10/29/17 22:08 Active ABG Stat LAB 10/29/17 21:39 Completed AMYLASE Stat LAB 10/29/17 20:43 Completed B-TYPE NATRIURETIC PEPTIDE Stat LAB 10/29/17 20:43 Completed BLOOD CULTURE (ED ONLY) Stat LAB 10/29/17 20:43 Received CBC W/ AUTO DIFF Stat LAB 10/29/17 20:43 Completed COMPREHENSIVE METABOLIC PANEL Stat LAB 10/29/17 20:43 Completed CREATINE KINASE Stat LAB 10/29/17 20:43 Completed LACTIC ACID Stat LAB 10/29/17 20:43 Completed LIPASE Stat LAB 10/29/17 20:43 Completed PROCALCITONIN Stat LAB 10/29/17 20:43 Completed TROPONIN I Stat LAB 10/29/17 20:43 Completed URINALYSIS C & S IF INDICATED Stat LAB 10/29/17 21:09 Uncollected 0.9 % Sodium Chloride [Saline Flush] MEDS 10/29/17 20:29 Ordered 1 syr IVF PRN PRN Aspirin [Aspirin Chewable] MEDS 10/29/17 21:11 Discontinued 324 mg PO ONCE STA Morphine Sulfate [Morphine 2 mg/ml Syringe] MEDS 10/29/17 22:15 Discontinued 2 mg IVP ONCE STA Nitroglycerin [Nitrostat] MEDS 10/29/17 20:31 Discontinued 0.4 mg SL ONCE STA Ondansetron HCl/Pf [Zofran 4 mg/2 ml] MEDS 10/29/17 22:15 Discontinued 4 mg IVP ONCE STA Sodium Chloride 0.9% [Sodium Chloride] 1,000 ml MEDS 10/29/17 20:29 Active IV 125 mls/hr CT ABD/PEL WO RENAL STONE PROT Stat RADS 10/29/17 21:[address] CHEST W/O CONTRAST Stat RADS 10/29/17 21:09 Completed Medications Generic Name Dose Route Start Last Admin Trade Name Freq PRN Reason Stop Dose Admin Aspirin 81 mg 10/30/17 08:00 Aspirin Chewable PO DAILYWM [facility] Clopidogrel Bisulfate 75 mg 10/30/17 17:00 Plavix PO QPM [facility] Diltiazem HCl 180 mg 10/30/17 09:00 Cardizem PO DAILY [facility] Enoxaparin Sodium 40 mg 10/30/17 09:00 Lovenox SUBCUT DAILY [facility] Sodium Chloride 1,000 mls @ 125 mls/hr 10/29/17 20:29 10/29/17 20:52 Sodium Chloride IV 10/30/17 04:28 125 mls/hr .Q8H STA Administration Sodium Chloride 1,000 mls @ 150 mls/hr 10/29/17 23:30 Sodium Chloride IV .Q6H40M [facility] Isosorbide Dinitrate 20 mg 10/30/17 09:00 Sorbitrate PO BID [facility] Levothyroxine Sodium 100 mcg 10/31/17 09:00 Synthroid PO EVERY OTHER DAY [facility] Morphine Sulfate 2 mg 10/29/17 23:16 Morphine 2 Mg/Ml Syringe IVP Q4H PRN Severe Pain Nitroglycerin 0.4 mg 10/29/17 23:21 Nitrostat SL Q5MIN X 3 DOSES PRN chest pain Non-Formulary Medication 40 mg 10/30/17 09:00 Esomeprazole Magnesium [Nexium] PO DAILY [facility] Non-Formulary Medication 1 mg 10/30/17 21:00 Alprazolam [Alprazolam] PO BEDTIME [facility] Ondansetron HCl 4 mg 10/29/17 23:16 Zofran 4 Mg/2 Ml IVP Q6H PRN Nausea / Vomiting Sodium Chloride 1 syr 10/29/17 20:29 Saline Flush IVF PRN PRN To flush IV Terazosin HCl 5 mg 10/30/17 21:00 Hytrin PO BEDTIME [facility] Discontinued Medications Generic Name Dose Route Start Last Admin Trade Name Freq PRN Reason Stop Dose Admin Aspirin 324 mg 10/29/17 21:11 Aspirin Chewable PO 10/29/17 21:12 ONCE STA Morphine Sulfate 2 mg 10/29/17 22:15 10/29/17 22:26 Morphine 2 Mg/Ml Syringe IVP 10/29/17 22:16 2 mg ONCE STA Administration Nitroglycerin 0.4 mg 10/29/17 20:31 10/29/17 20:56 Nitrostat SL 10/29/17 20:32 0.4 mg ONCE STA Administration Ondansetron HCl 4 mg 10/29/17 22:15 10/29/17 22:24 Zofran 4 Mg/2 Ml IVP 10/29/17 22:16 4 mg ONCE STA Administration Vital Signs: Temp Pulse Resp BP Pulse Ox 10/29/17 20:27 98.6 F 118 H 32 H 141/77 H 93 L PORTIA Risk Score Age >/= 65: Yes >/= 3 CAD Risk Factors: Yes Known CAD (Stenosis >/= 50%): No ASA Use in Past 7 Days: Yes Severe Angina (>/= 2 episodes in 24 hours): Yes EKG ST Changes >/= 0.5mm: No Postive Cardiac Marker: No PORTIA Total Score: 4 PORTIA Risk Score: Risk Score Odds of by 30D 0 0.1 (0.1-0.2) 1 0.3 (0.2-0.3) 2 0.4 (0.3-0.5) 3 0.7 (0.6-0.9) 4 1.2 (1.0-1.5) 5 2.2 (1.9-2.6) 6 3.0 (2.5-3.6) 7 4.8 (3.8-6.1) Departure - Departure Time of Disposition: 23:23 Disposition: HOME SELF-CARE Discharge Problem: Acute pancreatitis Qualifiers: Pancreatitis type: idiopathic Acute pancreatitis complication: unspecified Qualified Code(s): K85.00 - Idiopathic acute pancreatitis without necrosis or infection Condition: Critical Pt referred to PMD for follow-up: No (admitted ) IPMP verified?: No Allergies/Adverse Reactions: Allergies No Known Allergies Allergy (Verified 10/29/17 20:47) Home Medications: Ambulatory Orders Alprazolam 1 mg PO BEDTIME 02/13/15 Aspirin [Aspirin Chewable] 81 mg PO DAILYWM 02/13/15 Cetirizine HCl [Allergy Relief] 10 mg PO DAILY 02/13/15 Cholecalciferol (Vitamin D3) [Vitamin D3] 1,000 unit PO BEDTIME 02/13/15 Esomeprazole Magnesium [Nexium] 40 mg PO DAILY 02/13/15 Levothyroxine Sodium [Synthroid] 100 mcg PO EVERY OTHER DAY 02/13/15 Terazosin HCl [Hytrin] 5 mg PO BEDTIME 02/13/15 Nitroglycerin [Nitrostat] 0.4 mg SL Q5MIN X 3 DOSES PRN #1 tab.subl 02/14/15 Clopidogrel Bisulfate [Clopidogrel] 75 mg PO QPM 04/04/17 Diphenhydramine HCl [Benadryl] 25 mg PO DAILY 04/04/17 Docusate Sodium [Colace] 100 mg PO BEDTIME 04/07/17 Diltiazem HCl [Cardizem] 180 mg PO DAILY 10/29/17 Isosorbide Dinitrate [Sorbitrate] 20 mg PO BID 10/29/17 Lovastatin [Mevacor] 20 mg PO DAILYWM 10/29/17
[2017-10-29] MEDS ORDERED: ASPIRIN CHEWABLE PO STA (21:11)
--- NOTE | 2017-10-29 21:58 | CT ---
EXAM: CT chest without contrast TECHNIQUE: Helical axial CT of the chest was performed without contrast with coronal and sagittal rec onstructions. COMPARISON: CT abdomen pelvis from same day and CT chest from 04/16/2017 HISTORY: Chest pain FINDINGS: Lung parenchyma: There is no mass or nodule or large effusion or infiltrate. There is some minimal bi basilar atelectasis. Mediastinum: No pathologic hilar or mediastinal adenopathy. There are coronary calcifications. There is no pericardial effusion. There is calcific atherosclerosis of the aorta. There is a pacemaker in place. 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 There is no aortic aneurysm. Upper Abdomen: There is inflammation of the pancreas. Please see CT abdomen pelvis report for detail s. Osseous structures: Nothing acute. Surrounding soft tissues including the thyroid gland are normal. No supraclavicular or axillary adeno moriah. IMPRESSION: 1. Pancreatitis. Please see today's report of CT abdomen pelvis for details. 2. No acute abnormality in the chest. 3. Atherosclerosis.
--- NOTE | 2017-10-29 22:03 | CT ---
EXAM: CT abdomen pelvis without intravenous contrast 10/29/2017. Sagittal and coronal reformatted i mages obtained HISTORY: Diffuse abdominal pain COMPARISON: 04/16/2017 FINDINGS: Bibasilar atelectasis. The liver shows no acute abnormality. The gallbladder is distende d. The adrenal glands and kidneys show no acute abnormality. There is no hydronephrosis. The splee n shows no acute process. There is diffuse peripancreatic edema suggestive of acute pancreatitis. There is no evidence of bowel obstruction. Unremarkable urinary bladder. No free air or free fluid. Colonic diverticulosis. No evidence of acute diverticulitis. No acute osseous abnormality. IMPRESSION: 1. Bibasilar atelectasis. 2. Diffuse peripancreatic edema suggestive of acute pancreatitis. 3. Distended gallbladder. 4. Diverticulosis without diverticulitis. 5. Technically limited examination due to the lack of intravenous contrast.
[2017-10-29] MEDS ORDERED: MORPHINE 2 MG/ML SYRINGE IVP STA (22:15)
[2017-10-29] MEDS ORDERED: ZOFRAN 4 MG/2 ML IVP STA (22:15)
[2017-10-29] MEDS ORDERED: MORPHINE 2 MG/ML SYRINGE IVP PRN (23:16)
[2017-10-29] MEDS ORDERED: ZOFRAN 4 MG/2 ML IVP PRN (23:16)
[2017-10-29] MEDS ORDERED: NITROSTAT SL PRN (23:21)
[2017-10-30 00:27] VITALS: BMI 24.2
[2017-10-30] MEDS: SODIUM CHLORIDE 1,000 ML IV SCH ×2 (00:39→07:20)
[2017-10-30] MEDS ORDERED: NON-FORMULARY MEDICATION (Esomeprazole Magnesium [Nexium] 40 MG) PO SCH (09:00)
[2017-10-30] MEDS ORDERED: SORBITRATE PO SCH (09:00)
[2017-10-30] MEDS ORDERED: CARDIZEM PO SCH (09:00)
[2017-10-30] MEDS: PROTONIX PO SCH (09:11)
[2017-10-30] MEDS: ASPIRIN CHEWABLE PO SCH (09:11)
[2017-10-30] MEDS: LOVENOX SUBCUT SCH (09:11)
[2017-10-30] MEDS: ROCEPHIN 1 GM in SODIUM CHLORIDE 50 ML IV SCH ×2 (09:12→09:48)
[2017-10-30] MEDS: DEXTROSE 5%-1/2NS IV SOLUTION 1,000 ML IV SCH ×2 (09:48→23:19)
--- NOTE | 2017-10-30 10:44 | RS.PTINEVL ---
Subjective - Patient information Date of Evaluation: 10/30/17 Date of Arrival on Unit: 10/29/17 Admitted From:: Home Diagnosis: acute pancreatitis Usual Living Arrangement: With Others Living Arrangement Comments: dtr and son in law lives with him Home Environment: House, Stairs (few), Rail Medical History: Hypertension Medical History Comments:: CAD, GERD, [place] LATEX ALLERGY?: No Surgical History Comments:: pacemaker, heart cath, knee surgery, shld sx, hernia repair. Medications: see chart Subjective Information/ Patient Comments:: pt states that he is doing ok this am. 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 Current Level of Function: Partially Dependent Current Equipment Used at Home: straight cane Pain Assessement - Location abd Description: Burning Pain Behavior: Facial Grimacing Pain Alleviating Factors: Medication Interventions - Objective Patient Orientation: Person, Place, Time, Situation Current Interventions: IV's, Telemetry Observation: NG tube Range of Motion - ROM Right Upper Extremity AROM: WFL's Left Upper Extremity AROM: WFL's Right Lower Extremity AROM: WFL's Left Lower Extremity AROM: WFL's Muscle Strength - Muscle Strength Right Upper Extremity Strength: Mild Weakness (grossly 4/5) Left Upper Extremity Strength: Mild Weakness (grossly 4/5) Right Lower Extremity Strength: Mild Weakness (hip flex 4-/5, knee flex/ext 4/5 , ankle DF/PF 4/5) Left Lower Extremity Strength: Mild Weakness (hip flex 4-/5, knee flex/ext 4/5, ankle DF/PF 4/5) Sensation - Sensation Right Upper Extremity Sensation: Intact/Normal Left Upper Extremity Sensation: Intact/Normal Right Lower Extremity Sensation: Intact/Normal Left Lower Extremity Sensation: Intact/Normal Palpation Palpation Findings: None/Normal Balance - Sitting Balance and Reactions Static Sitting Balance: Good Dynamic Sitting Balance: Fair Sitting Equilibrium Reactions: Delayed Left, Delayed Right Sitting Protective Reactions: Delayed Left, Delayed Right - Standing Balance and Reactions Static Standing Balance: Fair Dynamic Standing Balance: Poor Standing Equilibrium Reactions: Delayed Left, Delayed Right Standing Protective Reactions: Delayed Left, Delayed Right Functional Mobility - Bed Mobility Rolling R/L: CGA Supine to Sit: Min Assist - Transfers Sit to Stand: CGA Stand to Sit: CGA - Safety Awareness Safety Awareness: Good RONI INDEX SCORE: n/a Ambulation - Ambulation Assistive Device Used: Rolling Walker Orthotic/Prosthetic Device: No Distance: 10ft x 2 Assistance needed with Ambulation: CGA Quality of Ambulation: CGA of 1 +1 for IV Gait Deviations: Forward posture, Short stride Treatment time - Time with patient Length of Evaluation: 24 Total treatment time: 24 Patient Education - Education Patient Education: Home Exercise Program, Education of Plan of Care Assessment - Assessment Problem List:: Decreased level of function, Requires training/education, Decreased safety/Risk of falls, Weakness, Pain limits previous level of function Rehab Potential: Good Further Therapy Indicated?: Yes Candidate for Swing Bed for Therapy Services?: pt may be candidate for swing bed depending on functional status at time of swing bed eval. pt is high level at this time. Evaluation Complexity: HISTORY: Medium (HTN, acute pancreatitis, CAD), EXAM OF BODY SYSTEMS: Medium (strength, balance, transfers, gait, pain), CLINICAL PRESENTATION: Medium (evolving), CLINICAL DECISION MAKING: Medium Short Term Goals GOAL #1: pt transfer sup to/from sit independently, sit to/from stand SBA Goal to be met by: 11/01/17 GOAL #2: pt amb with rwx 50ft with improved posture with CGA Goal to be met by: 11/01/17 GOAL #3: pt independent with rolling and scooting up in bed Goal to be met by: 11/01/17 GOAL #4: pt tolerate standing activities x 3-4 mins Goal to be met by: 11/01/17 Skilled Nursing Goals GOAL #1: pt with improved strength BLE 4 to 4+/5 independent with HEP Goal to be met by: 11/04/17 GOAL #2: pt amb with rwx functional household distances with no LOB with SBA Goal to be met by: 11/04/17 GOAL #3: pt transfer sit to/from stand independently Goal to be met by: 11/04/17 Plan Plan of Care: Therapeutic EX, Therapeutic Activity Other:: gait training Frequency of Treatment: 1-2 X day, as tolerated Duration of Treatment: 5-6 days Anticipated Discharge Destination: Home Treatment Diagnosis (ICD 10 Codes): R26.2 difficulty walking. R 26.91 balance impaired. M62.81 muscle weakness Has the Physician been added for Co-signature?: Yes
--- NOTE | 2017-10-30 14:50 | PN ---
DATE OF SERVICE: 10/29/17 SUBJECTIVE: The patient was seen and examined in the emergency room. 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 He was hospitalized with having abdominal pain on the morning of hospitalization with one vomiting spell. The patient had evidence of acute pancreatitis with high amylase and high lipase and leukocytosis. The patient's cardiovascular status is stable with history of coronary bypass surgery. He is talking and oriented to time, place and person. The daughter was in the room. The patient is DNR. REVIEW OF SYSTEMS: CONSTITUTIONAL: No night sweats. No fatigue, malaise, lethargy. No fever or chills. HEENT: Eyes: No visual changes. No eye pain. No eye discharge. ENT: No runny nose. No epistaxis. No sinus pain. No sore throat. No odynophagia. No congestion. RESPIRATORY: No cough, no congestion. No hemoptysis. No shortness of breath. CARDIOVASCULAR: No angina symptoms. No CHF symptoms. No atypical chest pain for CAD. No palpitations. No orthopnea. GASTROINTESTINAL: No abdominal pain. No nausea or vomiting. No diarrhea or constipation. No hematemesis. No hematochezia. GENITOURINARY: No urgency. No frequency. No dysuria. No hematuria. No obstructive symptoms. No discharge. No pain. No significant abnormal bleeding. MUSCULOSKELETAL: No musculoskeletal pain; no joint swelling. NEUROLOGICAL: No headache. No neck pain. No syncope. No seizures. No dizziness. PSYCHIATRIC: Not anxious. No depression. No suicidal thoughts. No homicidal thoughts. SKIN: No rash. No lesions. No wounds. ENDOCRINE: No unexplained weight loss. No weight gain. HEMATOLOGIC/LYMPHATIC: No anemia. No purpura. No petechiae. No prolonged or excessive bleeding. No palpable lymph nodes. PHYSICAL EXAMINATION: GENERAL: The patient is oriented to time, place and person. HEENT: Head normocephalic, atraumatic. Eyes: Extraocular muscles are intact. Pupils are equal, round and reactive to light and accommodation. Ears: No lesions. Nose appeared normal. Throat: No exudate or erythema. NECK: Supple. No JVD, no carotid bruit. No lymphadenopathy or thyromegaly. LUNGS: Decreased breath sounds but clear to auscultation. Percussion note normal. Chest symmetrical. HEART: S1, S2, no S3. No murmurs. No cyanosis or clubbing. No ascites. Pulses: Dorsalis pedis and posterior tibial pulses +1 to +2 both sides. ABDOMEN: Soft. Mildly distended. Bowel sounds hyperactive to absent. No CVA tenderness. No mass felt. EXTREMITIES: No edema. Full range of motion of all extremities, equal. NEUROLOGIC: No focal deficit. Cranial nerves II through XII are grossly intact. No headache, no double vision or headache. SKIN: Not dry. Intact. Turgor - normal. LYMPHATIC: No palpable lymph nodes/no lymphedema. MUSCULOSKELETAL: Normal joints with no swelling. Muscle tone is normal. ASSESSMENT: 1. Acute pancreatitis 2. Coronary bypass surgery PLAN: 1. Give IV fluids 2. Watch for fluid overload 3. BNP to begin with is 46 which is good. 4. IV Morphine sulfate for pain 5. NG tube to be inserted 6. Serum amylase and lipase 7. Telemetry PROGNOSIS: Guarded, discussed with the family of pancreatitis, it's complications. CONDITION: Stable. TIME SPENT: More than 30 minutes. Plan and coordination of the patient's care discussed in the presence of nurse. LEYDA
--- NOTE | 2017-10-30 14:53 | PN ---
DATE OF SERVICE: 10/30/17 SUBJECTIVE: The patient is feeling somewhat better. NG tube is working well. He is NPO. IV fluids infiltrate and no evidence of fluid overload. The patient was seen and examined with Nurse Practitioner. The patient's started on Rocephin for abnormal U/A and high WBC count which is very likely from pancreatitis but still will cover him for it. Amylase and Lipase better. CONDITION: Improving some with no cardiovascular complication. TIME SPENT: More than 30 minutes. Plan and coordination of the patient's care discussed in the presence of nurse. LEYDA
[2017-10-30] MEDS ORDERED: PLAVIX PO SCH (17:00)
[2017-10-30] MEDS ORDERED: TYLENOL PO STA (20:15)
[2017-10-30] MEDS: HYTRIN PO SCH (20:29)
[2017-10-30] MEDS: PLAVIX PO SCH (20:29)
[2017-10-30] MEDS ORDERED: XANAX PO SCH (21:00)
[2017-10-30] MEDS ORDERED: NON-FORMULARY MEDICATION (Alprazolam [Alprazolam] 1 MG) PO SCH (21:00)
[2017-10-31] MEDS: PROTONIX PO SCH (05:32)
[2017-10-31] MEDS ORDERED: SYNTHROID PO SCH ×2 (06:30→09:00)
--- NOTE | 2017-10-31 08:27 | HP ---
DATE OF SERVICE: 10/30/17 REASON FOR HOSPITALIZATION/HISTORY OF PRESENT ILLNESS: This is an 87 year old white male who presented to the emergency room by ambulance who started complaining of vomiting with abdominal pain yesterday after eating a variety of foods. PAST MEDICAL HISTORY: Left knee osteoarthritis, he seeing Dr. Arun Snow BPH Coronary artery disease Insomnia Diabetes Mellitus type 2 Hypothyroidism Paroxysmal atrial fibrillation History of hypotension Fatigue Generalized weakness History of pneumonia PAST SURGICAL HISTORY: Pacemaker Knee surgery times 2 Hernia repair times 2 Coronary artery disease with stent REVIEW OF SYSTEMS: CONSTITUTIONAL: No night sweats. Malaise. Chills. HEENT: Eyes: No visual changes. No eye pain. No eye discharge. ENT: No runny nose. No epistaxis. No sinus pain. No sore throat. No odynophagia. No ear pain. No congestion. RESPIRATORY: No cough, no congestion. No hemoptysis. No shortness of breath. CARDIOVASCULAR: No angina symptoms. No CHF symptoms. No atypical chest pain for CAD. No palpitations. No PND. No orthopnea. GASTROINTESTINAL: Abdominal pain. Nausea and vomiting. No diarrhea or constipation. No hematemesis. No hematochezia. Degreased appetite. GENITOURINARY: No urgency. No frequency. No dysuria. No hematuria. No obstructive symptoms. No discharge. No pain. No significant abnormal bleeding. MUSCULOSKELETAL: No musculoskeletal pain. No joint swelling. No arthritis. NEUROLOGICAL: No headache. No neck pain. No syncope. No seizures. No dizziness. PSYCHIATRIC: Not anxious. No depression. No suicidal thoughts. No homicidal thoughts. SKIN: No rash. No lesions. No wounds. ENDOCRINE: No unexplained weight loss. No weight gain. HEMATOLOGIC/LYMPHATIC: No anemia. No purpura. No petechiae. No prolonged or excessive bleeding. No palpable lymph nodes. PERSONAL/FAMILY/SOCIAL HISTORY: The patient is a former smoker. He lives by himself close to his daughter, he is . No alcohol or illicit drug use. MEDICATIONS: Cetirizine 10mg PO daily Synthroid 100mcg PO every other day Aspirin 81mg PO daily Alprazolam 1mg PO bedtime Terazosin 5mg PO bedtime Nexium 40mg PO daily Nitrostat 0.4mg SL Q 5 minutes x3 doses PRN Benadryl 25mg PO daily Clopidogrel 75mg PO QPM Colace 100mg PO bedtime Mevacor 20mg PO QPM Cardizem 180mg PO daily ALLERGIES: No known allergies PHYSICAL EXAMINATION: HEENT: Head normocephalic, atraumatic. Eyes: Extraocular muscles are intact. Pupils are equal, round and reactive to light and accommodation. Ears: No lesions. Nose appeared normal. Throat: No exudate or erythema. NECK: Supple. No JVD, no carotid bruit. No lymphadenopathy or thyromegaly. LUNGS: Diminished breath sounds and clear to auscultation. Percussion note normal. Chest symmetrical. HEART: S1, S2, no S3. No murmurs. No cyanosis or clubbing. No ascites. Pulses: Dorsalis pedis and posterior tibial pulses +1 to +2 bilaterally. ABDOMEN: Soft. Slight abdominal distention with diffused tenderness greater on the left upper quadrant. Bowel sounds active. No CVA tenderness. No mass felt. EXTREMITIES: No edema. Full range of motion of all extremities, equal. NEUROLOGIC: No focal deficit. Cranial nerves II through XII are grossly intact. No headache, no double vision or headache. SKIN: Not dry. Intact. Turgor - normal. LYMPHATIC: No palpable lymph nodes/no lymphedema. MUSCULOSKELETAL: Normal joints with no swelling. Muscle tone is normal. LABS: WBC 20.55, hgb 14.7, hct 43.3, plt count 316, sodium 139, potassium 3.5, BUN 10 , creatinine 0.94, glucose 81, EKG shows PVC's, calcium 8.9, bilirubin 2.2, AST 94, ALT 59, Alkaline phosphatase 80, BNP 46, Amylase 823, lipase 3,181. ABG's on room air O2 saturation 95, pH 7.494, pCo2 31.2, pO2 67, bicarb 24. Lactic acid 22.7. CT of the abdomen shows bibasilar atelectasis, defused peripancreatic edema, distended gallbladder. Chest x-ray was saranya. U/A showed trace blood and bacteria. ASSESSMENT: 1. Acute pancreatitis 2. Acute abdominal pain 3. Fever 4. Hypothyroidism 5. History of paroxysmal atrial fibrillation 6. Coronary artery disease 7. BPH 8. Left knee OA 9. History of pacemaker 10.Insomnia PLAN: 1. Routine telemetry orders 2. The patient will be NPO 3. CBC and CMP and Amylase and Lipase daily 4. NG tube to low suction 5. IV fluids D5 1/2 normal saline at 75cc an hour 6. Hold Lovastatin due to Hypotension 7. Hold Cardizem due to elevated white count and fever of 100.3 8. 1 gram Rocephin IV daily 9. Rest 10. Admit to special care Will follow closely TIME SPENT: More than 70 minutes. MTDD
[2017-10-31] MEDS: ROCEPHIN 1 GM in SODIUM CHLORIDE 50 ML IV SCH (10:03)
[2017-10-31] MEDS: K-DUR PO SCH (10:04)
[2017-10-31] MEDS: ASPIRIN CHEWABLE PO SCH (10:05)
[2017-10-31] MEDS: SYNTHROID PO SCH (10:05)
[2017-10-31] MEDS: LOVENOX SUBCUT SCH (10:05)
--- NOTE | 2017-10-31 10:56 | PCM.PROG ---
Attending Provider: ATTENDING PROVIDER: Dr. DEBORA SNOW This patient is seen with Pam Martinez, Nurse Practitioner. DATE OF SERVICE: 10/31/17 SUBJECTIVE: This 87 year old WHITE/ M was hospitalized 10/29/17. The patient is resting comfortably. No abdominal pain today. Amylase and lipase have significantly declined. He has had no fever, no vomiting. White count has improved. REVIEW OF SYSTEMS: CONSTITUTIONAL: Weakness. No night sweats. No malaise, lethargy. No fever or chills. HEENT: Eyes: No visual changes. No eye pain. No eye discharge. ENT: No runny nose. No epistaxis. No sinus pain. No odynophagia. No congestion. RESPIRATORY: No cough, no congestion. No hemoptysis. No shortness of breath. CARDIOVASCULAR: No angina symptoms. No CHF symptoms. No atypical chest pain for CAD. No palpitations. No orthopnea.. GASTROINTESTINAL: Nausea. No abdominal pain. No vomiting. No diarrhea or constipation. No hematemesis. No hematochezia. GENITOURINARY: No urgency. No frequency. No dysuria. No hematuria. No obstructive symptoms. No discharge. No pain. No significant abnormal bleeding. MUSCULOSKELETAL: No musculoskeletal pain; no joint swelling. NEUROLOGICAL: Awake, alert, oriented to time, place and person. No headache. No neck pain. No syncope. No seizures. No dizziness. PSYCHIATRIC: Not anxious. No depression. No suicidal thoughts. No homicidal thoughts. SKIN: No rash. No lesions. No wounds. ENDOCRINE: No unexplained weight loss. No weight gain. HEMATOLOGIC/LYMPHATIC: No anemia. No purpura. No petechiae. No prolonged or excessive bleeding. No palpable lymph nodes. PHYSICAL EXAMINATION: GENERAL: The patient is awake, alert and oriented, lying in bed in no distress. VITAL SIGNS: Temperature 98.9 F, Pulse 82, Respiratory Rate 14, BP 142/79, Pulse Ox 94% HEENT: Head normocephalic, atraumatic. Eyes: Extraocular muscles are intact. Pupils are equal, round and reactive to light and accommodation. Ears: No lesions. Nose appeared normal. Throat: No exudate or erythema. NECK: Supple. No JVD, no carotid bruit. No lymphadenopathy or thyromegaly. LUNGS: Diminished breath sounds. Clear to auscultation. Percussion note normal. Chest symmetrical. HEART: S1, S2, no S3. No murmurs. No cyanosis or clubbing. No ascites. Pulses: Dorsalis pedis and posterior tibial pulses +1 to +2 both sides. ABDOMEN: Soft. Non-tender. Bowel sounds active. No CVA tenderness. No mass felt. EXTREMITIES: No edema. Full range of motion of all extremities, equal. NEUROLOGIC: No focal deficit. Cranial nerves II through XII are grossly intact. No headache, no double vision or headache. SKIN: Not dry. Intact. Turgor-normal. LYMPHATIC: No palpable lymph nodes/no lymphedema. MUSCULOSKELETAL: Normal joints with no swelling. Muscle tone is normal. LAB REVIEW: 10/31/17 04:45 10/31/17 04:45 10/31/17 04:45: Sodium 137, Potassium 3.4 L, Chloride 108 H, Carbon Dioxide 21 L , Anion Gap 11.4, BUN 10, Creatinine 0.83, Estimated GFR (MDRD) 87.00, BUN/ Creatinine Ratio 12.04, Glucose 120 H, Calcium 8.0 L, Total Bilirubin 1.3 H, AST 35, ALT 39, Alkaline Phosphatase 64, Total Protein 6.2, Albumin 2.7 L, Globulin 3.5, Albumin/Globulin Ratio 0.77, Amylase 236 H D, Lipase 654 H D 10/31/17 04:45: WBC 14.47 H D, RBC 4.29 L, Hgb 12.7 L, Hct 38.1 L, MCV 88.8, MCH 29.6, MCHC 33.3, RDW Coeff of Andi 14.5, Plt Count 257, Immature Gran % (Auto ) 0.3, Neut % (Auto) 78.6, Lymph % (Auto) 12.8, Randall % (Auto) 7.7, Eos % (Auto) 0.3, Baso % (Auto) 0.3, Immature Gran # (Auto) 0.1, Neut # (Auto) 11.4 H, Lymph # (Auto) 1.9, Randall # (Auto) 1.1, Eos # (Auto) 0.0, Baso # (Auto) 0.1 ASSESSMENT: 1. Acute pancreatitis, improving 2. Hypokalemia 3. Hypertension PLAN: 1. Potassium 20 mEq daily 2. Retart Cardizem 3. Consult Dr. Fuller for abdominal pain 4. Continue Rocephin 1 gm IV 5. D/C NG tube 6. Continue NPO status 7. Will slowly advance clear liquids starting Friday Plan and coordination of the patient's care discussed in the presence of Public Health Technologist and nurse. CONDITION: Stable SCRIBED BY: GARRICK STRICKLAND Cost Report Clerk scribed while in presence of service performed by Dr. Snow/Pam Martinez APRN on 10/31/17 (0800)
--- NOTE | 2017-10-31 11:49 | RS.OTINEVL ---
Subjective - Patient information Date of Evaluation: 10/31/17 Date of Arrival on Unit: 10/29/17 Admitted From:: Emergency Dept Usual Living Arrangement: With Others Living Arrangement Comments: Pt lives at his home with his daughter and son-in- law. Home Environment: House, Stairs (few) Medical History: Diabetes Medical History Comments:: Pancreatitis, Chest pain, Hypotension, Fatigue, CAD, Insomnia, Left knee OA. LATEX ALLERGY?: No Subjective Information/ Patient Comments:: They took my keys to my riding heel sprayer first away because i was mowing in the heat. - Level of function Prior to this admission, the patient could do the following:: Independent Selfcare, Independent ADL's, Independent Ambulation, Perform Clerk Of Superior Court/ Cooking Abilities prior to this admission: Pt was independent with dressing, bathing, and he was driving. Pt walks with a straight cane. Patient was mowing his yard independently. Patient has a garden at his home. Current Equipment Used at Home: straight cane Pain Assessment - Pain Pain Score: 0 Interventions - Objective Patient Orientation: Person, Place, Time, Situation Current Interventions: IV's, Telemetry Observation: Pt was wearing an NG tube that is supposed to be removed later today. Interventions - ROM Right Upper Extremity AROM: WFL's Left Upper Extremity AROM: WFL's - Strength Right Upper Extremity Strength: Mild Weakness Left Upper Extremity Strength: Mild Weakness - Sensation Right Upper Extremity Sensation: Intact/Normal Left Upper Extremity Sensation: Intact/Normal Balance - Sitting Balance Static Sitting Balance: Fair Dynamic Sitting Balance: Fair - Standing Balance Static Standing Balance: Fair Dynamic Standing Balance: Fair - Comments Balance Assessment Comments: Fair ADL Skills - Self Feeding Self Feeding: Independent - Grooming Grooming: Independent - Bathing Bathing UE: CGA Bathing LE: CGA - Dressing Dressing UE: CGA Dressing LE: CGA - Toilet Management Toileting Management: Min Assist Functional Mobility - Bed Mobility Rolling R/L: Supervision Scooting: Supervision Supine to Sit: CGA Sit to Supine: CGA - Transfers Sit to Stand: CGA Stand to Sit: CGA Stand Pivot Transfers: CGA - Ambulation Assistance needed with Ambulation: CGA, 1 person assist - Safety Awareness Safety Awareness: Good RONI INDEX SCORE: . Additional Treatment Performed - Time with patient Length of Evaluation: 20 Total treatment time: 20 Activities Do you enjoy playing games?: No Would you be interested in leaving your room for activities?: Yes What types of things do you enjoy doing? Any Hobbies?: Gardening Patient Interests:: Visiting/Socializing Patient Education Patient Education: Education of diagnosis, Education of Plan of Care Teaching Recipient: Patient Teaching Methods: Discussion Assessment Problem List:: Requires training/education, Decreased safety/Risk of falls, Weakness Rehab Potential: Good Further Therapy Indicated?: Yes Evaluation Complexity: HISTORY: Medium, EXAM OF BODY SYSTEMS: Medium, CLINICAL DECISION MAKING: Medium Short Term Goals - Goals GOAL 1: Pt to increase activity tolerance to 15 minutes for standing ADLS. Goal to be met by: 11/05/17 GOAL 2: Pt to increase BUE strength to 4+/5. Goal to be met by: 11/05/17 GOAL 3: Pt to increase dyn. std. balance to Fair+ Goal to be met by: 11/05/17 Medical Technologist Hematology Goals GOAL 1: Pt to increase activity tolerance to 20 minutes for standing ADLS. Goal to be met by: 11/07/17 GOAL 2: Pt to increase BUE strength to 5/5. Goal to be met by: 11/07/17 GOAL 3: Pt to increase dyn. std. balance to Good. Goal to be met by: 11/07/17 Plan Plan of Care: Therapeutic EX, Neuromuscular Re-Educ, Therapeutic Activity, Self- Care/Home Management Frequency of Treatment: 1-2 X day, as tolerated Duration of Treatment: 1 Week Anticipated Discharge Destination: Home Treatment Diagnosis (ICD 10 Codes): M62.81 Muscle Weakness Has the Physician been added for Co-signature?: Yes
--- NOTE | 2017-10-31 14:16 | PN ---
DATE OF SERVICE: 10/31/17 SUBJECTIVE: The patient was seen and examined with the nurse practitioner. His condition is better. He says that he is feeling better. He has an NG tube. PHYSICAL EXAMINATION: HEENT: Head normocephalic, atraumatic. Eyes: Extraocular muscles are intact. Pupils are equal, round and reactive to light and accommodation. Ears: No lesions. Nose appeared normal. Throat: No exudate or erythema. NECK: Supple. No JVD, no carotid bruit. No lymphadenopathy or thyromegaly. LUNGS: Clear to auscultation. Percussion note normal. Chest symmetrical. HEART: S1, S2, no S3. No murmurs. No cyanosis or clubbing. No ascites. Pulses: Dorsalis pedis and posterior tibial pulses +1 to +2 both sides. ABDOMEN: Flat. Soft. Nontender. Bowel sounds becoming active. No CVA tenderness. No mass felt. EXTREMITIES: No edema. Full range of motion of all extremities, equal. NEUROLOGIC: No focal deficit. Cranial nerves II through XII are grossly intact. No headache, no double vision or headache. SKIN: Not dry. Intact. Turgor - normal. LYMPHATIC: No palpable lymph nodes/no lymphedema. MUSCULOSKELETAL: Normal joints with no swelling. Muscle tone is normal. LABS: Amylase and lipase are dropping. The patient was explained that I will be leaving town and Dr. Fuller is going to be on consultation and he is going to be following him and he agreed to that. CONDITION: Stable TIME SPENT: More than 30 minutes. Plan and coordination of the patient's care discussed in the presence of nurse. LEYDA
[2017-10-31] MEDS: DEXTROSE 5%-1/2NS IV SOLUTION 1,000 ML IV SCH (14:59)
[2017-10-31] MEDS: XANAX PO SCH (22:05)
[2017-10-31] MEDS: PLAVIX PO SCH (22:06)
[2017-10-31] MEDS: HYTRIN PO SCH (22:06)
[2017-11-01] MEDS: DEXTROSE 5%-1/2NS IV SOLUTION 1,000 ML IV SCH (05:28)
[2017-11-01] MEDS: PROTONIX PO SCH (05:32)
[2017-11-01] MEDS: K-DUR PO SCH (09:08)
[2017-11-01] MEDS: LOVENOX SUBCUT SCH (09:08)
[2017-11-01] MEDS: ASPIRIN CHEWABLE PO SCH (09:08)
[2017-11-01] MEDS: ROCEPHIN 1 GM in SODIUM CHLORIDE 50 ML IV SCH (09:08)
[2017-11-01] MEDS ORDERED: K-DUR PO STA (10:57)
[2017-11-01] MEDS ORDERED: DEXTROSE 5%-1/2NS IV SOLUTION 1,000 ML IV SCH (11:00)
[2017-11-01] MEDS: HYTRIN PO SCH (20:43)
[2017-11-01] MEDS: XANAX PO SCH (20:43)
[2017-11-01] MEDS: PLAVIX PO SCH (20:44)
[2017-11-01] MEDS ORDERED: [UNRECOGNIZED DRUG - OTHER] IV SCH (23:45)
[2017-11-01] MEDS ORDERED: POTASSIUM CHLORIDE IV SCH (23:45)
[2017-11-01] MEDS ORDERED: DEXTROSE 5% IV SCH (23:45)
[2017-11-02] MEDS: PROTONIX PO SCH (05:43)
[2017-11-02] MEDS ORDERED: K-DUR PO SCH (08:00)
[2017-11-02] MEDS: LOVENOX SUBCUT SCH (09:22)
[2017-11-02] MEDS: SYNTHROID PO SCH (09:22)
[2017-11-02] MEDS: ROCEPHIN 1 GM in SODIUM CHLORIDE 50 ML IV SCH (09:22)
[2017-11-02] MEDS: ASPIRIN CHEWABLE PO SCH (09:24)
[2017-11-02] MEDS: D5%-1/2NS-KCL 20 MEQ/L IV SOL 1,000 ML IV SCH (15:39)
[2017-11-02] MEDS: K-DUR PO SCH (16:47)
[2017-11-02] MEDS: PLAVIX PO SCH (20:34)
[2017-11-02] MEDS: HYTRIN PO SCH (20:34)
[2017-11-02] MEDS: XANAX PO SCH (20:34)
[2017-11-03] MEDS: D5%-1/2NS-KCL 20 MEQ/L IV SOL 1,000 ML IV SCH ×2 (03:59→15:20)
[2017-11-03] MEDS: PROTONIX PO SCH (05:33)
[2017-11-03] MEDS: ROCEPHIN 1 GM in SODIUM CHLORIDE 50 ML IV SCH (09:28)
[2017-11-03] MEDS: K-DUR PO SCH ×2 (09:28→17:15)
[2017-11-03] MEDS: LOVENOX SUBCUT SCH (09:29)
--- NOTE | 2017-11-03 09:35 | PN ---
DATE OF SERVICE: 10/31/17 SUBJECTIVE: This is an 87 year old male who was admitted to the hospital under the services of Dr. Snow and it is his patient. He was diagnosed with acute pancreatitis. The CT scan does indicate that as well as the serum amylase and lipase. Dr. Snow is going out of town and is leaving today Friday10/31/17. I made rounds late in the evening and the patient was alert when I walked in there and he told me that he felt much better and does not have any abdominal pain. I did see him to get acquainted just in case I get a call during the night or the next day. His temperature on 10/31/17 was 98.1, pulse 64, blood pressure 143/62, RR 18. His color is good and he is still NPO. He is not dyspneic or tachypneic and not anxious. HEART: Normal sinus rhythm ABDOMEN: Soft with no remarkable tenderness. No guarding. Bowel sounds are active. No masses palpable. EXTERNAL GENITALIA: Not examined The patient denies any soreness or tenderness in both legs. His WBC is still elevated at 14,470. It did go as high as 28,200. The serum amylase is now down to 236 from 823 on admission and lipase is 654 from 3,181. AST is now normal at 35 and 91 on admission. Total bilirubin was 2.2 on admission and now down to 1.3. I can't get a gallbladder ultrasound by Friday, there is no aviation survival technician on Friday and Friday. Acute pancreatis, improving. MIGUELD
--- NOTE | 2017-11-03 09:43 | PCM.PROG ---
Attending Provider: ATTENDING PROVIDER: Dr. DEBORA SNOW This patient is seen with Pam Martinez, Nurse Practitioner. DATE OF SERVICE: 11/03/17 SUBJECTIVE: This 87 year old WHITE/ M was hospitalized 10/29/17. The patient is lying in bed, alert. He has been eating well and tolerating well. He has been up and about walking yesterday. No nausea, no abdominal pain. REVIEW OF SYSTEMS: CONSTITUTIONAL: No night sweats. No fatigue, malaise, lethargy. No fever or chills. HEENT: Eyes: No visual changes. No eye pain. No eye discharge. ENT: No runny nose. No epistaxis. No sinus pain. No odynophagia. No congestion. RESPIRATORY: No cough, no congestion. No hemoptysis. No shortness of breath. CARDIOVASCULAR: No angina symptoms. No CHF symptoms. No atypical chest pain for CAD. No palpitations. No orthopnea.. GASTROINTESTINAL: No abdominal pain. No nausea or vomiting. No diarrhea or constipation. No hematemesis. No hematochezia. GENITOURINARY: No urgency. No frequency. No dysuria. No hematuria. No obstructive symptoms. No discharge. No pain. No significant abnormal bleeding. MUSCULOSKELETAL: No musculoskeletal pain; no joint swelling. NEUROLOGICAL: Awake, alert, oriented to time, place and person. No headache. No neck pain. No syncope. No seizures. No dizziness. PSYCHIATRIC: Not anxious. No depression. No suicidal thoughts. No homicidal thoughts. SKIN: No rash. No lesions. No wounds. ENDOCRINE: No unexplained weight loss. No weight gain. HEMATOLOGIC/LYMPHATIC: No anemia. No purpura. No petechiae. No prolonged or excessive bleeding. No palpable lymph nodes. PHYSICAL EXAMINATION: GENERAL: The patient is awake, alert and oriented, lying in bed in no distress. VITAL SIGNS: Temperature 97.9 F, Pulse 70, Respiratory Rate 16, BP 129/75, Pulse Ox 96% HEENT: Head normocephalic, atraumatic. Eyes: Extraocular muscles are intact. Pupils are equal, round and reactive to light and accommodation. Ears: No lesions. Nose appeared normal. Throat: No exudate or erythema. NECK: Supple. No JVD, no carotid bruit. No lymphadenopathy or thyromegaly. LUNGS: Clear to auscultation. Percussion note normal. Chest symmetrical. HEART: S1, S2, no S3. No murmurs. No cyanosis or clubbing. No ascites. Pulses: Dorsalis pedis and posterior tibial pulses +1 to +2 both sides. ABDOMEN: Soft. Non-tender. Bowel sounds active. No CVA tenderness. No mass felt. EXTREMITIES: No edema. Full range of motion of all extremities, equal. NEUROLOGIC: No focal deficit. Cranial nerves II through XII are grossly intact. No headache, no double vision or headache. SKIN: Not dry. Intact. Turgor-normal. LYMPHATIC: No palpable lymph nodes/no lymphedema. MUSCULOSKELETAL: Normal joints with no swelling. Muscle tone is normal. LAB REVIEW: 11/03/17 04:15 11/03/17 04:15 11/03/17 04:15: Sodium 139, Potassium 4.2, Chloride 111 H, Carbon Dioxide 20 L, Anion Gap 12.2, BUN 7, Creatinine 0.84, Estimated GFR (MDRD) 86.00, BUN/ Creatinine Ratio 8.33, Glucose 120 H, Calcium 8.4, Total Bilirubin 0.7, AST 33, ALT 36, Alkaline Phosphatase 62, Total Protein 6.1, Albumin 2.7 L, Globulin 3.4 , Albumin/Globulin Ratio 0.79, Amylase 43, Lipase 119 H 11/03/17 04:15: WBC 7.08, RBC 4.05 L, Hgb 12.0 L, Hct 35.6 L, MCV 87.9, MCH 29.6 , MCHC 33.7, RDW Coeff of Andi 13.9, Plt Count 252, Immature Gran % (Auto) 0.6, Neut % (Auto) 54.3, Lymph % (Auto) 30.9, Mower % (Auto) 11.0 H, Eos % (Auto) 2.5 , Baso % (Auto) 0.7, Immature Gran # (Auto) 0.0, Neut # (Auto) 3.8, Lymph # ( Auto) 2.2, Mower # (Auto) 0.8, Eos # (Auto) 0.2, Baso # (Auto) 0.1 ASSESSMENT: 1. Acute pancreatitis, resolving 2. Hypokalemia, resolved 3. Hypertension PLAN: 1. [place] diet discussed, increase as tolerated 2. Anticipate discharge home as long as Dr. Fuller agrees 3. Slowly advance diet as tolerated 4. Will see the patient back in the office or Friday Plan and coordination of the patient's care discussed in the presence of Wood Ski Maker and nurse. CONDITION: Stable SCRIBED BY: GARRICK STRICKLAND Armature And Rotor Winder scribed while in presence of service performed by Dr. Snow/Pam Martinez APRN on 11/03/17 ([id number])
--- NOTE | 2017-11-03 10:32 | PN ---
DATE OF SERVICE: 10/30/17 SUBJECTIVE: The patient is examined. He has an NG tube to low suction. He has not had any vomiting, did have some fever through the night of up to 100.3. He states he is still nauseated, still with mild abdominal pain although it has improved. He is alert and oriented. REVIEW OF SYSTEMS: CONSTITUTIONAL: Weakness. No night sweats. No malaise, lethargy. No fever or chills. HEENT: Eyes: No visual changes. No eye pain. No eye discharge. ENT: No runny nose. No epistaxis. No sinus pain. No sore throat. No odynophagia. No congestion. RESPIRATORY: No cough, no congestion. No hemoptysis. No shortness of breath. CARDIOVASCULAR: No angina symptoms. No CHF symptoms. No atypical chest pain for CAD. No palpitations. No orthopnea. GASTROINTESTINAL: No appetite. Abdominal pain. Nausea. No vomiting. No diarrhea or constipation. No hematemesis. No hematochezia. GENITOURINARY: No urgency. No frequency. No dysuria. No hematuria. No obstructive symptoms. No discharge. No pain. No significant abnormal bleeding. MUSCULOSKELETAL: No musculoskeletal pain; no joint swelling. NEUROLOGICAL: No headache. No neck pain. No syncope. No seizures. No dizziness. PSYCHIATRIC: Not anxious. No depression. No suicidal thoughts. No homicidal thoughts. SKIN: No rash. No lesions. No wounds. ENDOCRINE: No unexplained weight loss. No weight gain. HEMATOLOGIC/LYMPHATIC: No anemia. No purpura. No petechiae. No prolonged or excessive bleeding. No palpable lymph nodes. PHYSICAL EXAMINATION: HEENT: Head normocephalic, atraumatic. Eyes: Extraocular muscles are intact. Pupils are equal, round and reactive to light and accommodation. Ears: No lesions. Nose appeared normal. Throat: No exudate or erythema. NECK: Supple. No JVD, no carotid bruit. No lymphadenopathy or thyromegaly. LUNGS: Diminished breath sounds bilaterally. Clear to auscultation. Percussion note normal. Chest symmetrical. HEART: S1, S2, no S3. No murmurs. No cyanosis or clubbing. No ascites. Pulses: Dorsalis pedis and posterior tibial pulses +1 to +2 both sides. ABDOMEN: Soft. Diffuse abdominal tenderness, mildly tender, worse in the left upper quadrant. Bowel sounds active. No CVA tenderness. No mass felt. EXTREMITIES: No edema. Full range of motion of all extremities, equal. NEUROLOGIC: No focal deficit. Cranial nerves II through XII are grossly intact. No headache, no double vision or headache. SKIN: Not dry. Intact. Turgor - normal. LYMPHATIC: No palpable lymph nodes/no lymphedema. MUSCULOSKELETAL: Normal joints with no swelling. Muscle tone is normal. LABS: White count: 28.2, hemoglobin 13.2, hematocrit 39.7, platelets 275. Sodium 140, potassium 4.0, BUN 10, creatinine 0.98. ASSESSMENT: 1. ACUTE PANCREATITIS WITH ACUTE ABDOMINAL PAIN 2. FEVER 3. ABNORMAL URINALYSIS, URINE CULTURE PENDING 4. HYPOTENSION PLAN: 1. We will hold his Cardizem and Lovastatin. 2. CT chest normal. 3. Will change fluids to D5 1/2 NS as he is not eating after this bag at 200 cc /hr, will decrease to 75 cc/hr. 4. Will start on Rocephin 1 gm IV daily. 5. Daily amylase and lipase. 6. The patient is to remain NPO with low NG suction. 3. TIME SPENT: More than 30 minutes. Plan and coordination of the patient's care discussed in the presence of nurse. LEYDA
--- NOTE | 2017-11-03 10:47 | PN ---
DATE OF SERVICE: 11/01/17 SUBJECTIVE: The patient was seen about 11:00pm and the patient was complaining of some bloating in the abdomen but no pain. He just felt some discomfort. The abdomen is tympanitic, soft with no remarkable tenderness. No guarding, bowel sounds are active to slightly hyperactive. This patient is still not eating. CBC now shows a normal WBC 8,900, hgb down to 11.8 from 14.7, electrolytes slightly lower potassium 3.3, GFR estimated 95 from 76 on admission. Blood sugar 114. I did ask for lipids to be done on the day of admission and the triglyceride was 92, cholesterol 240, LDL 179, VLDL 18, HDL 43. The serum amylase is now normal at 65 and the lipase is down to 214 from 654. Vital signs at 10:00am showed a temperature 97.7 axilla, pulse 80, blood pressure 148/78, respiratory rate 21, oxygen saturation 97. Condition is satisfactory and bloating sensation maybe due to the slightly hyperactive bowel sounds. [facility]
[2017-11-03 14:57] VITALS: BP 139/90; TEMP 97.9
--- NOTE | 2017-11-03 15:15 | US ---
Exam: Guzmán-scale and color duplex Doppler ultrasonographic evaluation of the right upper quadrant wi th spectral waveform analysis. Comparison: CT of the abdomen pelvis performed 10/29/2017. Reason for exam: Acute pancreatitis with distended gallbladder. FINDINGS: The liver measures approximately 18.1 cm in length with normal antegrade portal venous zena w. No ductal dilatation or perihepatic free fluid. The gallbladder wall is mildly prominent size measuring 0.36 cm. No intraluminal stone, sludge or polyp is seen. The common bile duct measures 0.39 cm which is within normal limits. The pancreas is not well seen secondary to overlying bowel gas. The right kidney measures approximately 10.1 x 4.3 x 4.5 cm without obvious hydronephrosis or nephrol ithiasis. Image interpretation is limited secondary to patient's body habitus and overlying bowel gas. Impression: 1. The pancreas is not well seen secondary to overlying bowel gas and body habitus. 2. Mild prominence of the gallbladder wall without evidence of intraluminal stone, sludge or polyp. If clinical concern exists for acute gallbladder pathology, further evaluation may be performed.
--- NOTE | 2017-11-04 09:39 | PN ---
DATE OF SERVICE: 11/01/17 SUBJECTIVE: The patient was examined. He is resting comfortably. Amylase and lipase are still steadily improving. He is advanced to clear liquids today. We discontinued the NG tube yesterday. He has had no vomiting or nausea. He states he is feeling better. REVIEW OF SYSTEMS: CONSTITUTIONAL: No night sweats. No fatigue, malaise, lethargy. No fever or chills. HEENT: Eyes: No visual changes. No eye pain. No eye discharge. ENT: No runny nose. No epistaxis. No sinus pain. No sore throat. No odynophagia. No congestion. RESPIRATORY: No cough, no congestion. No hemoptysis. No shortness of breath. CARDIOVASCULAR: No angina symptoms. No CHF symptoms. No atypical chest pain for CAD. No palpitations. No orthopnea. GASTROINTESTINAL: Decreased appetite. Positive for intermittent abdominal pain. No nausea or vomiting. No diarrhea or constipation. No hematemesis. No hematochezia. GENITOURINARY: No urgency. No frequency. No dysuria. No hematuria. No obstructive symptoms. No discharge. No pain. No significant abnormal bleeding. MUSCULOSKELETAL: No musculoskeletal pain; no joint swelling. NEUROLOGICAL: No headache. No neck pain. No syncope. No seizures. No dizziness. PSYCHIATRIC: Not anxious. No depression. No suicidal thoughts. No homicidal thoughts. SKIN: No rash. No lesions. No wounds. ENDOCRINE: No unexplained weight loss. No weight gain. HEMATOLOGIC/LYMPHATIC: No anemia. No purpura. No petechiae. No prolonged or excessive bleeding. No palpable lymph nodes. PHYSICAL EXAMINATION: HEENT: Head normocephalic, atraumatic. Eyes: Extraocular muscles are intact. Pupils are equal, round and reactive to light and accommodation. Ears: No lesions. Nose appeared normal. Throat: No exudate or erythema. NECK: Supple. No JVD, no carotid bruit. No lymphadenopathy or thyromegaly. LUNGS: Diminished breath sounds bilaterally. Clear to auscultation. Percussion note normal. Chest symmetrical. HEART: S1, S2, no S3. No murmurs. No cyanosis or clubbing. No ascites. Pulses: Dorsalis pedis and posterior tibial pulses +1 to +2 both sides. ABDOMEN: Soft. Nontender. Bowel sounds active. No CVA tenderness. No mass felt. EXTREMITIES: No edema. Full range of motion of all extremities, equal. NEUROLOGIC: No focal deficit. Cranial nerves II through XII are grossly intact. No headache, no double vision or headache. SKIN: Not dry. Intact. Turgor - normal. LYMPHATIC: No palpable lymph nodes/no lymphedema. MUSCULOSKELETAL: Normal joints with no swelling. Muscle tone is normal. ASSESSMENT: 1. ACUTE PANCREATITIS WITH ACUTE ABDOMINAL PAIN. ABDOMINAL PAIN HAS SINCE RESOLVED. 2. HYPOKALEMIA, POTASSIUM 3.3 TODAY. 3. CORONARY ARTERY DISEASE. 4. HYPERTENSION. PLAN: 1. Will decrease IV fluids to 50 cc/hr today. 2. Increase his potassium to 20 mEq b.i.d. 3. Will continue clear liquids today. He is allowed to have toast or mashed potatoes, something light tonight at supper. 4. Will advance to soft diet as of tomorrow. 5. Will follow closely. TIME SPENT: More than 30 minutes. Plan and coordination of the patient's care discussed in the presence of nurse. LEYDA
--- NOTE | 2017-11-04 09:43 | PN ---
DATE OF SERVICE: 11/02/17 SUBJECTIVE: The patient examined. He states he is doing well. He started a soft bland diet as of supper last night. He stated he did have a little bit of gas yesterday evening. However, this morning he ate breakfast, scrambled eggs and has had no problems. He is drinking well. Amylase and lipase have significantly decreased. Lipase 39, amylase 98. Potassium 3.3 today. REVIEW OF SYSTEMS: CONSTITUTIONAL: Weakness. No night sweats. No malaise, lethargy. No fever or chills. HEENT: Eyes: No visual changes. No eye pain. No eye discharge. ENT: No runny nose. No epistaxis. No sinus pain. No sore throat. No odynophagia. No congestion. RESPIRATORY: No cough, no congestion. No hemoptysis. No shortness of breath. CARDIOVASCULAR: No angina symptoms. No CHF symptoms. No atypical chest pain for CAD. No palpitations. No orthopnea. GASTROINTESTINAL: Decreased appetite. No abdominal pain. No nausea or vomiting. No diarrhea or constipation. No hematemesis. No hematochezia. GENITOURINARY: No urgency. No frequency. No dysuria. No hematuria. No obstructive symptoms. No discharge. No pain. No significant abnormal bleeding. MUSCULOSKELETAL: No musculoskeletal pain; no joint swelling. NEUROLOGICAL: No headache. No neck pain. No syncope. No seizures. No dizziness. PSYCHIATRIC: Not anxious. No depression. No suicidal thoughts. No homicidal thoughts. SKIN: No rash. No lesions. No wounds. ENDOCRINE: No unexplained weight loss. No weight gain. HEMATOLOGIC/LYMPHATIC: No anemia. No purpura. No petechiae. No prolonged or excessive bleeding. No palpable lymph nodes. PHYSICAL EXAMINATION: HEENT: Head normocephalic, atraumatic. Eyes: Extraocular muscles are intact. Pupils are equal, round and reactive to light and accommodation. Ears: No lesions. Nose appeared normal. Throat: No exudate or erythema. NECK: Supple. No JVD, no carotid bruit. No lymphadenopathy or thyromegaly. LUNGS: Diminished breath sounds. Clear to auscultation. Percussion note normal. Chest symmetrical. HEART: S1, S2, no S3. No murmurs. No cyanosis or clubbing. No ascites. Pulses: Dorsalis pedis and posterior tibial pulses +1 to +2 both sides. ABDOMEN: Soft. Nontender. Bowel sounds active. No CVA tenderness. No mass felt. EXTREMITIES: No edema. Full range of motion of all extremities, equal. NEUROLOGIC: No focal deficit. Cranial nerves II through XII are grossly intact. No headache, no double vision or headache. SKIN: Not dry. Intact. Turgor - normal. LYMPHATIC: No palpable lymph nodes/no lymphedema. MUSCULOSKELETAL: Normal joints with no swelling. Muscle tone is normal. ASSESSMENT: 1. ACUTE PANCREATITIS RESOLVING 2. HYPOKALEMIA 3. HYPERTENSION PLAN: 1. We will increase potassium 40 mEq b.i.d. 2. Continue daily Amylase and Lipase. 3. Soft diet as tolerated today. 4. Encourage the patient to get up and about in his room, sit in his chair. 5. Possible D/C tomorrow. TIME SPENT: More than 30 minutes. Plan and coordination of the patient's care discussed in the presence of nurse. LEYDA
--- NOTE | 2017-11-04 10:39 | PN ---
DATE OF SERVICE: 11/03/17 SUBJECTIVE: 87-year-old male who looks well for his age. He is alert, oriented and cooperative, not in any distress today. OBJECTIVE: I did see him about 1:15 p.m. today and his vital signs soon after 9:45 a.m. , temperature 97.5, pulse 74, blood pressure 137/84, respiratory rate 20, oxygen saturation 98 on room air. He consumed about 75% of his meals. He denies any abdominal pain. Indeed on palpation the patient had no tenderness in the epigastric area or bilateral subcostal. Bowel sounds are slightly hyperactive but no muscular guarding and no bruit. He denies any tenderness in the calf muscles on examination. Lungs are clear. Heart normal sinus rhythm. LABS: CBC today showed normal WBC 7,080. Hemoglobin 12, hematocrit 35.6. Electrolytes are acceptable, more so with the chloride. EGFR 86, liver panel normal. Albumin 2.7 better than yesterday. Amylase 43 slightly higher than yesterday 39 and lipase is 119 highter than 98 yesterday. This probably is a consequence of eating. The youngest daughter was in the room and I had told them that we still do not what caused his pancreatitis. He doesn't drink alcohol and he did not eat any greasy foods and his lipid panel shows a normal triglyceride. None of his medications would likely also cause pancreatitis. The gallbladder was distended initially and maybe sludge that caused the problem. It is probably suspicious more so that AST was elevated at 55 on admission and total bilirubin was elevated 1.9. This patient will be discharged today and to continue the medications and see Dr. Snow for followup. DIAGNOSIS: 1. ACUTE PANCREATITIS RESOLVING PLAN: 1. Resume previous medications. 2. Avoid high fat diet for now. LEYDA
--- NOTE | 2017-11-04 13:25 | PN ---
DATE OF SERVICE: 11/02/17 SUBJECTIVE: The patient did complain of some bloating sensation the day before however today the bloating is mostly gone. He did eat some today about 50% without any recurrence of the abdominal pain. LUNG: Clear HEART: Normal sinus rhythm ABDOMEN: No tenderness including the epigastric area and bilateral subcostal and the bowel sounds are slightly hyperactive. EXTREMITIES: No tenderness in the calf muscles. VITALS SIGNS: Temperature 98, pulse 74, blood pressure 144/85, respiratory rate 19, oxygen saturation 96 at room air. Again, he ate about 75% of the meal. MTDD
--- NOTE | 2018-01-01 11:46 | DS ---
DATE OF SERVICE: 11/03/17 PATIENT IDENTIFICATION: 87 year old male admitted to the hospital via the emergency room because of abdominal pain and vomiting. He was admitted with the diagnosis of acute pancreatitis. HOSPITAL COURSE: Serum amylase on admission was 823 and lipase was 3,181. The patient did complain of bloating, but the bloating problem disappeared. He was able to consume 50% of his meal on 11/02/2017. The patient's initial WBC was 20 ,055 and that has returned to normal at 7,080 on the day of discharge. The serum amylase was 823 on admission and lipase 3181. Amylase is down to normal at 43 and the serum lipase remained slightly elevated at 119. Upper normal for lipase is 78. The patient at the time of discharge was alert, ambulatory and did consume most of his dinner without any abdominal pain. VITAL SIGNS: Before discharge at 2 p.m. showed a temperature of 97.9, pulse 71 , blood pressure 139/70, respiratory rate 20, oxygen saturation 97 at room air. ABDOMEN: No significant tenderness. Bowel sounds are active. PLAN: 1. The patient was instructed to continue the following medications of Xanax, Aspirin, Zyrtec, Plavix, Diltiazem, Benadryl, Docusate, Nexium, Levothyroxine, Lovastatin, Nitroglycerin and Naprosyn. Vitamin D3 1000 units daily. Isosorbide Dinitrate 20 mg twice a day. 2. The patient was advised to see Dr. Snow November 06, 2017 and should call his office for the appointment. 3. He should eat a low fat diet and small amounts frequently. 4. Gradually resume activity depending upon his symptoms. 5. I emphasized to him that he needs to see his family physician as soon as he is back in town. FINAL DIAGNOSES: ACUTE PANCREATITIS. TIME SPENT: GREATER THAN 30 MINUTES MTDD
== END 2017-11-03 18:17 | disposition home or self-care (01) | DRG 391 ==
LOC: ED 20:25 → SCU 22:57
PROVIDERS: ADMIT Internal Medicine; ATTEND Internal Medicine
DX: R10.9 Unspecified abdominal pain (principal); K85.00 Idiopathic acute pancreatitis without necrosis or infection; R53.1 Weakness; R50.9 Fever, unspecified; E03.9 Hypothyroidism, unspecified; G47.00 Insomnia, unspecified; M17.12 Unilateral primary osteoarthritis, left knee; N40.0 Benign prostatic hyperplasia without lower urinary tract symptoms; I95.9 Hypotension, unspecified; I25.10 Atherosclerotic heart disease of native coronary artery without angina pectoris; I10 Essential (primary) hypertension; Z95.0 Presence of cardiac pacemaker
CPT/HCPCS: 36415; 74176; 80053; 80061; 81001; 82150; 82550; 82803; 83605; 83690; 83880; 84145; 84484; 85025; 87040; 87081; 93005; 93010; 96361; 96374; 96375; 99223; 99232; 99239; 99284

== ENCOUNTER 2017-11-22 09:32 | Inpatient (IN) ==
[2017-11-22] MEDS ORDERED: SODIUM CHLORIDE 1,000 ML IV STA (09:41)
[2017-11-22] MEDS ORDERED: MORPHINE 2 MG/ML SYRINGE IVP STA (09:42)
[2017-11-22] MEDS ORDERED: ZOFRAN 4 MG/2 ML IVP STA (09:42)
--- NOTE | 2017-11-22 10:09 | ED.PDOC ---
General ED Provider: Dr. RICO GREWAL Chief Complaint: Abdominal Pain Stated Complaint: Patient is an 87 year old who was recently discharged after admission for idiopathic acute pancreatitis. He has been doing well at home until this morning when he woke up with lower abdominal pain worse on the right than the left. He ate good yesterday evening. Denies any vomiting. States his last bowel movement was 3 days ago and was small. Denies any ETOH or drug use. Describes the pain as aching rates it at 7/10 Time Seen by Physician: 09:45 Mode of Arrival: Walk-In Information Source: Patient, Family Exam Limitations: No limitations Primary Care Provider: DEBORA OLIVER Nursing and Triage Documentation Reviewed and Agree: Yes Does patient meet sepsis criteria?: No System Inflammatory Response Syndrome: Not Applicable Sepsis Protocol: For patient's 13 years and over: Temp is 96.8 and below OR 101 and greater Pulse >90 BPM Resp >20/minute Acutely Altered Mental Status Are patient's symptoms suggestive of a new infection, such as: -Pneumonia -Skin, Soft Tissue -Endocarditis -UTI -Bone, Joint Infection -Implantable Device -Acute Abdominal Infection -Wound Infection -Meningitis -Blood Stream Catheter Infection -Unknown GI Complaint Exam - Abdominal Pain Complaint/Exam Onset: Gradual Duration: this Morning Symptoms Are: Still present Timing: Constant Initial Severity: Severe Current Severity: Moderate Location of Pain: RLQ, LLQ Radiates To: Reports: Back Character: Reports: Aching, Throbbing Aggravating: Reports: Movement, Position, Eating Alleviating: Reports: None Associated Signs and Symptoms: Denies: Diaphoresis, Fever, Cough, Chest pain, Dizziness, Back pain, Constipation, Blood in stool, Dysuria, Urinary frequency, Decreased urine output, Decreased appetite, Discharge, Nausea, Vomiting, Diarrhea, Decreased activity Related History: Reports: Similar episode (2.5 weeks ago ) AAA Risk Factors: Reports: None Cardiac Risk Factors: Reports: None Testicular Torsion Risk Factors: Reports: None Related Surgical History: Reports: None Abdominal Findings: Present: Peritoneal signs Differential Diagnoses: Appendicitis, Bowel Obstruction, Constipation, Pancreatitis, GB Review of Systems - Review Of Systems Constitutional: Reports: No symptoms Eyes: Reports: No symptoms Ears, Nose, Mouth, Throat: Reports: No symptoms Respiratory: Reports: No symptoms Cardiac: Reports: No symptoms GI: Reports: Abdominal pain : Reports: No symptoms Musculoskeletal: Reports: No symptoms Skin: Reports: No symptoms Neurological: Reports: No symptoms Endocrine: Reports: No symptoms Hematologic/Lymphatic: Reports: No symptoms All Other Systems: Reviewed and Negative Past Medical History - Past Medical History Previously Healthy: No Endocrine: Reports: Hypothyroid Cardiovascular: Reports: CAD, [place], Hypertension Respiratory: Reports: None Hematological: Reports: None Gastrointestinal: Reports: GERD Genitourinary: Reports: None Neuro/Psych: Reports: None Musculoskeletal: Reports: None Cancer: Reports: None - Surgical History General Surgical History: Reports: Stent, Heart Cath, Pacemaker, Orthopedic ( knee x2, shoulder, forearm (post trauma - 4 fractures)), Hernia Repair (x2) - Family History Family History: Reports: Unknown - Social History Smoking Status: Former smoker Hx Substance Use: No Alcohol Screening: None - Immunizations Tetanus Shot up to Date: Yes Influenza Vaccine within 12 Months: No Pneumococcal Vaccine up to Date: No Physical Exam - Physical Exam Appearance: Ill-appearing Ill-appearing: Moderate Pain Distress: Severe Neck: Supple Respiratory: Airway patent, Breath sounds clear, Breath sounds equal, Respirations nonlabored Cardiovascular: RRR GI/: Tender Musculoskeletal: Normal strength, ROM intact, No edema, No calf tenderness Skin: Warm, Dry, Normal color Neurological: Sensation intact Psychiatric: Anxious Interpretation - Radiology Interpretation Radiology Interpretation By: Radiologist Radiology Results: Positive (Acute pancreatitis) Exam Interpreted: CT Scan Critical Care Note - Critical Care Note Total Time (mins): 30 Course - Course Hematology/Chemistry: 11/22/17 09:33 11/22/17 09:33 Orders, Labs, Meds: Lab Review 11/22/17 11/22/17 09:33 09:33 WBC 19.80 H RBC 4.46 L Hgb 13.5 L Hct 39.3 L MCV 88.1 MCH 30.3 MCHC 34.4 RDW Coeff of Andi 14.4 Plt Count 284 Immature Gran % (Auto) 0.7 Neut % (Auto) 88.1 Lymph % (Auto) 4.2 L Nolan % (Auto) 6.7 Eos % (Auto) 0.1 Baso % (Auto) 0.2 Immature Gran # (Auto) 0.1 Neut # (Auto) 17.5 H Lymph # (Auto) 0.8 Nolan # (Auto) 1.3 Eos # (Auto) 0.0 Baso # (Auto) 0.0 Sodium 139 Potassium 3.9 Chloride 106 Carbon Dioxide 24 Anion Gap 12.9 BUN 11 Creatinine 1.10 Estimated GFR (MDRD) 63.00 BUN/Creatinine Ratio 10.00 Glucose 172 H Calcium 8.8 Total Bilirubin 1.5 H AST 80 H ALT 72 Alkaline Phosphatase 77 Total Protein 6.4 Albumin 3.2 L Globulin 3.2 Albumin/Globulin Ratio 1.00 Amylase 670 H* Lipase 1705 H* Orders Category Date Time Status AMYLASE Stat LAB 11/22/17 09:33 Completed CBC W/ AUTO DIFF Stat LAB 11/22/17 09:33 Completed COMPREHENSIVE METABOLIC PANEL Stat LAB 11/22/17 09:33 Completed LIPASE Stat LAB 11/22/17 09:33 Completed URINALYSIS C & S IF INDICATED Stat LAB 11/22/17 09:41 Uncollected Morphine Sulfate [Morphine 2 mg/ml Syringe] MEDS 11/22/17 09:42 Discontinued 2 mg IVP ONCE STA Ondansetron HCl/Pf [Zofran 4 mg/2 ml] MEDS 11/22/17 09:42 Discontinued 4 mg IVP ONCE STA Sodium Chloride 0.9% [Sodium Chloride] 1,000 ml MEDS 11/22/17 09:[address] ABDOMEN/PELVIS WO CONTRAST Stat RADS 11/22/17 10:12 Completed Medications Discontinued Medications Generic Name Dose Route Start Last Admin Trade Name Freq PRN Reason Stop Dose Admin Sodium Chloride 1,000 mls @ 1,000 mls/hr 11/22/17 09:41 11/22/17 09:56 Sodium Chloride IV 11/22/17 10:40 1,000 mls/hr BOLUS STA Administration Morphine Sulfate 2 mg 11/22/17 09:42 11/22/17 09:56 Morphine 2 Mg/Ml Syringe IVP 11/22/17 09:43 2 mg ONCE STA Administration Ondansetron HCl 4 mg 11/22/17 09:42 11/22/17 09:56 Zofran 4 Mg/2 Ml IVP 11/22/17 09:43 4 mg ONCE STA Administration Vital Signs: Temp Pulse Resp BP Pulse Ox 11/22/17 09:32 99.4 F 115 H 20 91/58 L 92 L Departure - Departure Time of Disposition: 11:55 Disposition: ADMITTED INPATIENT Discharge Problem: Abdominal pain Acute pancreatitis Qualifiers: Pancreatitis type: idiopathic Acute pancreatitis complication: no infection or necrosis Qualified Code(s): K85.00 - Idiopathic acute pancreatitis without necrosis or infection Condition: Fair Pt referred to PMD for follow-up: Yes IPMP verified?: No Allergies/Adverse Reactions: Allergies No Known Allergies Allergy (Verified 10/29/17 20:47) Home Medications: Ambulatory Orders Alprazolam 1 mg PO BEDTIME 02/13/15 Aspirin [Aspirin Chewable] 81 mg PO DAILYWM 02/13/15 Cetirizine HCl [Allergy Relief] 10 mg PO DAILY 02/13/15 Esomeprazole Magnesium [Nexium] 40 mg PO DAILY 02/13/15 Levothyroxine Sodium [Synthroid] 100 mcg PO EVERY OTHER DAY 02/13/15 Terazosin HCl [Hytrin] 5 mg PO BEDTIME 02/13/15 Nitroglycerin [Nitrostat] 0.4 mg SL Q5MIN X 3 DOSES PRN #1 tab.subl 02/14/15 Clopidogrel Bisulfate [Clopidogrel] 75 mg PO QPM 04/04/17 Diphenhydramine HCl [Benadryl] 25 mg PO DAILY 04/04/17 Docusate Sodium [Colace] 100 mg PO BEDTIME 04/07/17 Diltiazem HCl [Cardizem] 180 mg PO DAILY 10/29/17 Lovastatin [Mevacor] 20 mg PO QPM 10/29/17
--- NOTE | 2017-11-22 10:56 | CT ---
Exam: CT of the abdomen and pelvis without contrast History: Lower abdomen pain and tenderness Technique: [address] of the abdomen and pelvis without intravascular contrast FINDINGS: The lung bases are clear. Normal liver, spleen and adrenal glands. The gallbladder appear s normal. Vague inflammatory stranding adjacent to the pancreatic head. Calcifications of the pancre atic head are present. Duodenal diverticula are present without surrounding inflammation. Kidneys an d proximal collecting system are unremarkable. The appendix is normal. Normal caliber bowel loops. Left colonic diverticulosis is present. Colonic diverticulosis of the sigmoid. No pelvic fat inflammation. Generous prostate gland. Normal urinary bladder. Prior ventral hernia repair. No acute findings of the skeleton. Impression: 1. Subtle inflammatory stranding about pancreatic head. Correlate for acute pancreatitis. Duodenit is considered less likely. 2. Calcifications of the pancreas consist with chronic pancreatitis. 3. Colonic diverticulosis without diverticulitis
[2017-11-22] MEDS ORDERED: ZOFRAN 4 MG/2 ML IVP PRN (11:39)
[2017-11-22] MEDS ORDERED: MORPHINE 2 MG/ML SYRINGE IVP PRN (11:39)
[2017-11-22] MEDS ORDERED: NITROSTAT SL PRN (11:45)
[2017-11-22] MEDS ORDERED: D5%-NS-KCL 20 MEQ/L IV SOL 1,000 ML IV SCH (12:00)
[2017-11-22 12:06] VITALS: BMI 25.0
[2017-11-22] MEDS: D5%-NS-KCL 20 MEQ/L IV SOL 1,000 ML IV SCH ×2 (12:19→20:23)
[2017-11-22] MEDS: PLAVIX PO SCH (16:44)
[2017-11-22] MEDS: PROTONIX IV IVP SCH (18:07)
[2017-11-22] MEDS ORDERED: NON-FORMULARY MEDICATION (Alprazolam [Alprazolam] 1 MG) PO SCH (21:00)
[2017-11-22] MEDS: XANAX PO SCH (21:56)
[2017-11-22] MEDS: COLACE PO SCH (21:56)
[2017-11-23] MEDS: HYTRIN PO SCH ×2 (00:16→22:24)
[2017-11-23] MEDS: D5%-NS-KCL 20 MEQ/L IV SOL 1,000 ML IV SCH ×3 (04:30→22:17)
[2017-11-23] MEDS: LOVENOX SUBCUT SCH (08:07)
[2017-11-23] MEDS: PROTONIX IV IVP SCH (08:07)
[2017-11-23] MEDS: CLARITIN PO SCH (08:07)
[2017-11-23] MEDS: ASPIRIN CHEWABLE PO SCH (08:07)
[2017-11-23] MEDS ORDERED: [UNRECOGNIZED DRUG - REMARK] PO SCH (09:00)
[2017-11-23] MEDS: PLAVIX PO SCH (16:22)
[2017-11-23] MEDS: COLACE PO SCH (22:25)
[2017-11-23] MEDS: XANAX PO SCH (22:25)
[2017-11-24] MEDS: SYNTHROID PO SCH (06:00)
--- NOTE | 2017-11-24 07:42 | PN ---
DATE OF SERVICE: 11/22/17 SUBJECTIVE: Mr. Eric was hospitalized with acute pancreatitis. The patient had starting of abdominal pain within 24 hours left upper quadrant and left lower quadrant. Amylase is 600, Lipase almost normal. The patient had Acute pancreatitis nearly three weeks ago, etiology was unknown. The patient will be kept NPO and will be given Protonix, IV fluids will be given and he will be watched for any fluid overload and telemetry. The patient has history of coronary bypass surgery, advanced age and pancreatitis and history of coronary bypass surgery. The patient's prognosis is guarded. TIME SPENT: More than 30 minutes. Plan and coordination of the patient's care discussed in the presence of nurse. LEYDA
[2017-11-24] MEDS: D5%-NS-KCL 20 MEQ/L IV SOL 1,000 ML IV SCH ×3 (08:01→23:24)
[2017-11-24] MEDS: ASPIRIN CHEWABLE PO SCH (08:30)
[2017-11-24] MEDS: PROTONIX IV IVP SCH (08:30)
[2017-11-24] MEDS: LOVENOX SUBCUT SCH (08:31)
[2017-11-24] MEDS: CLARITIN PO SCH (08:31)
[2017-11-24] MEDS ORDERED: LASIX IVP STA (08:52)
[2017-11-24] MEDS: PLAVIX PO SCH (17:31)
[2017-11-24] MEDS: COLACE PO SCH (20:53)
[2017-11-24] MEDS: XANAX PO SCH (20:53)
[2017-11-24] MEDS: HYTRIN PO SCH (20:54)
[2017-11-25] MEDS: PROTONIX IV IVP SCH (09:31)
[2017-11-25] MEDS: CLARITIN PO SCH (09:32)
[2017-11-25] MEDS: LOVENOX SUBCUT SCH (09:32)
[2017-11-25] MEDS: ASPIRIN CHEWABLE PO SCH (09:32)
[2017-11-25] MEDS ORDERED: MICRO-K CAP PO STA (10:46)
--- NOTE | 2017-11-25 14:01 | HP ---
DATE OF SERVICE: 11/22/17 REASON FOR HOSPITALIZATION: Pancreatitis. HISTORY OF PRESENT ILLNESS: 87-year-old white male came to the emergency room because of abdominal pain and nausea of nearly 24 hours duration. The patient did not have anything unusual to eat. The patient has history of pancreatitis three weeks ago. The patient's amylase in the emergency room was noted to be approximately 600 with normal lipase. The patient's CT scan of the abdomen was practically unremarkable. PAST MEDICAL HISTORY: History of pancreatitis three weeks ago Coronary artery bypass surgery Hypothyroidism Prostatic hypertrophy Hypertension Dyslipidemia PAST SURGICAL HISTORY: Hernia surgery Shoulder, knee, wrist surgery REVIEW OF SYSTEMS: CONSTITUTIONAL: Weakness and fatigue. No night sweats. No malaise, lethargy. No fever or chills. HEENT: Eyes: No visual changes. No eye pain. No eye discharge. ENT: No runny nose. No epistaxis. No sinus pain. No sore throat. No odynophagia. No ear pain. No congestion. RESPIRATORY: No cough, no congestion. No hemoptysis. No shortness of breath. CARDIOVASCULAR: No angina symptoms. No CHF symptoms. No atypical chest pain for CAD. No palpitations. No PND. No orthopnea. GASTROINTESTINAL: Abdominal pain, upper quadrants of 24 hours duration with mild nausea, no vomiting. No diarrhea or constipation. No hematemesis. No hematochezia. GENITOURINARY: No urgency. No frequency. No dysuria. No hematuria. No obstructive symptoms. No discharge. No pain. No significant abnormal bleeding. MUSCULOSKELETAL: No musculoskeletal pain. No joint swelling. No arthritis. NEUROLOGICAL: No headache. No neck pain. No syncope. No seizures. No dizziness. PSYCHIATRIC: Not anxious. No depression. No suicidal thoughts. No homicidal thoughts. SKIN: No rash. No lesions. No wounds. ENDOCRINE: No unexplained weight loss. No weight gain. HEMATOLOGIC/LYMPHATIC: No anemia. No purpura. No petechiae. No prolonged or excessive bleeding. No palpable lymph nodes. PERSONAL/FAMILY/SOCIAL HISTORY: The patient is , lives by himself with help of daughter. Nonsmoker. No alcohol abuse. MEDICATIONS: Xanax Aspirin Zyrtec Nexium Levothyroxine Terazosin Nitroglycerin Clopidogrel Benadryl Docusate Diltazem Lovastatin ALLERGIES: NKDA PHYSICAL EXAMINATION: GENERAL: The patient is oriented to time, place and person. VITAL SIGNS: Temperature 99, pulse 80, respiratory rate 15, BP 110/70, pulse ox 96% on room air. HEENT: Head normocephalic, atraumatic. Eyes: Extraocular muscles are intact. Pupils are equal, round and reactive to light and accommodation. Ears: No lesions. Nose appeared normal. Throat: No exudate or erythema. NECK: Supple. No JVD, no carotid bruit. No lymphadenopathy or thyromegaly. LUNGS: Clear to auscultation. Percussion note normal. Chest symmetrical. HEART: S1, S2, no S3. No murmurs. No cyanosis or clubbing. No ascites. Pulses: Dorsalis pedis and posterior tibial pulses +1 to +2 bilaterally. ABDOMEN: Soft. Tender both upper quadrants. Bowel sounds hypoactive. No CVA tenderness. No mass felt. EXTREMITIES: No edema. Full range of motion of all extremities, equal. NEUROLOGIC: No focal deficit. Cranial nerves II through XII are grossly intact. No headache, no double vision or headache. SKIN: Not dry. Intact. Turgor - normal. LYMPHATIC: No palpable lymph nodes/no lymphedema. MUSCULOSKELETAL: Normal joints with no swelling. Muscle tone is normal. ASSESSMENT: 1. ACUTE PANCREATITIS, RECURRENT 2. DEHYDRATION 3. ANEMIA 4. CORONARY BYPASS SURGERY 5. HYPOTHYROIDISM 6. HYPERTENSION 7. DYSLIPIDEMIA PLAN: 1. NPO 2. IV fluids 3. Watch for fluid overload 4. Continue all the medications with small amount of water TIME SPENT: More than 70 minutes. MTDD
--- NOTE | 2017-11-25 14:52 | PN ---
DATE OF SERVICE: 11/25/17 SUBJECTIVE: The patient was hospitalized with acute pancreatis. The patient's condition has improved. His amylase and lipase are both normal now. REVIEW OF SYSTEMS: CONSTITUTIONAL: No night sweats. No fatigue, malaise, lethargy. No fever or chills. HEENT: Eyes: No visual changes. No eye pain. No eye discharge. ENT: No runny nose. No epistaxis. No sinus pain. No sore throat. No odynophagia. No congestion. RESPIRATORY: No cough, no congestion. No hemoptysis. No shortness of breath. CARDIOVASCULAR: No angina symptoms. No CHF symptoms. No atypical chest pain for CAD. No palpitations. No orthopnea. GASTROINTESTINAL: No abdominal pain. No nausea or vomiting. No diarrhea or constipation. No hematemesis. No hematochezia. Had small bowel movement. Appetite has improved. GENITOURINARY: No urgency. No frequency. No dysuria. No hematuria. No obstructive symptoms. No discharge. No pain. No significant abnormal bleeding. MUSCULOSKELETAL: No musculoskeletal pain; no joint swelling. NEUROLOGICAL: No headache. No neck pain. No syncope. No seizures. No dizziness. PSYCHIATRIC: Not anxious. No depression. No suicidal thoughts. No homicidal thoughts. SKIN: No rash. No lesions. No wounds. ENDOCRINE: No unexplained weight loss. No weight gain. HEMATOLOGIC/LYMPHATIC: No anemia. No purpura. No petechiae. No prolonged or excessive bleeding. No palpable lymph nodes. PHYSICAL EXAMINATION: HEENT: Head normocephalic, atraumatic. Eyes: Extraocular muscles are intact. Pupils are equal, round and reactive to light and accommodation. Ears: No lesions. Nose appeared normal. Throat: No exudate or erythema. NECK: Supple. No JVD, no carotid bruit. No lymphadenopathy or thyromegaly. LUNGS: Clear to auscultation. Percussion note normal. Chest symmetrical. HEART: S1, S2, no S3. No murmurs. No cyanosis or clubbing. No ascites. Pulses: Dorsalis pedis and posterior tibial pulses +1 to +2 both sides. ABDOMEN: Soft. Nontender. Bowel sounds active. No CVA tenderness. No mass felt. EXTREMITIES: No edema. Full range of motion of all extremities, equal. NEUROLOGIC: No focal deficit. Cranial nerves II through XII are grossly intact. No headache, no double vision or headache. SKIN: Not dry. Intact. Turgor - normal. LYMPHATIC: No palpable lymph nodes/no lymphedema. MUSCULOSKELETAL: Normal joints with no swelling. Muscle tone is normal. ASSESSMENT: 1. Acute pancreatis, recurrent 2. Dehydration 3. Anemia 4. Coronary bypass surgery 5. Hypothyroidism 6. Hypertension 7. Dyslipidemia PLAN: 1. Advance the diet to soft diet 2. Avoid milk products. CONDITION: Stable. TIME SPENT: More than 30 minutes. Plan and coordination of the patient's care discussed in the presence of nurse. LEYDA
[2017-11-25] MEDS: MICRO-K CAP PO SCH ×2 (15:40→21:57)
[2017-11-25] MEDS: PLAVIX PO SCH (16:37)
[2017-11-25] MEDS: HYTRIN PO SCH (21:57)
[2017-11-25] MEDS: COLACE PO SCH (21:57)
[2017-11-25] MEDS: XANAX PO SCH (21:57)
[2017-11-26] MEDS: SYNTHROID PO SCH (06:05)
--- NOTE | 2017-11-26 07:22 | PN ---
DATE OF SERVICE: 11/24/17 SUBJECTIVE: The patient was seen and examined this morning. The patient's condition is a lot better. He is eating better with no abdominal pain at all. REVIEW OF SYSTEMS: CONSTITUTIONAL: No night sweats. No fatigue, malaise, lethargy. No fever or chills. HEENT: Eyes: No visual changes. No eye pain. No eye discharge. ENT: No runny nose. No epistaxis. No sinus pain. No sore throat. No odynophagia. No congestion. RESPIRATORY: No cough, no congestion. No hemoptysis. No shortness of breath. CARDIOVASCULAR: No angina symptoms. No CHF symptoms. No atypical chest pain for CAD. No palpitations. No orthopnea. GASTROINTESTINAL: No abdominal pain. No nausea or vomiting. No diarrhea or constipation. No hematemesis. No hematochezia. GENITOURINARY: No urgency. No frequency. No dysuria. No hematuria. No obstructive symptoms. No discharge. No pain. No significant abnormal bleeding. MUSCULOSKELETAL: No musculoskeletal pain; no joint swelling. NEUROLOGICAL: No headache. No neck pain. No syncope. No seizures. No dizziness. PSYCHIATRIC: Not anxious. No depression. No suicidal thoughts. No homicidal thoughts. SKIN: No rash. No lesions. No wounds. ENDOCRINE: No unexplained weight loss. No weight gain. HEMATOLOGIC/LYMPHATIC: No anemia. No purpura. No petechiae. No prolonged or excessive bleeding. No palpable lymph nodes. PHYSICAL EXAMINATION: GENERAL: The patient is oriented to time, place and person. HEENT: Head normocephalic, atraumatic. Eyes: Extraocular muscles are intact. Pupils are equal, round and reactive to light and accommodation. Ears: No lesions. Nose appeared normal. Throat: No exudate or erythema. NECK: Supple. No JVD, no carotid bruit. No lymphadenopathy or thyromegaly. LUNGS: Clear to auscultation. Percussion note normal. Chest symmetrical. HEART: S1, S2, no S3. No murmurs. No cyanosis or clubbing. No ascites. Pulses: Dorsalis pedis and posterior tibial pulses +1 to +2 both sides. ABDOMEN: Soft. Nontender. Bowel sounds active. No CVA tenderness. No mass felt. EXTREMITIES: No edema. Full range of motion of all extremities, equal. NEUROLOGIC: No focal deficit. Cranial nerves II through XII are grossly intact. No headache, no double vision or headache. SKIN: Not dry. Intact. Turgor - normal. LYMPHATIC: No palpable lymph nodes/no lymphedema. MUSCULOSKELETAL: Normal joints with no swelling. Muscle tone is normal. ASSESSMENT: 1. Acute pancreatitis, resolving. PLAN: 1. Discontinue IV fluids 2. Soft diet 3. Avoid milk products 4. Up and about. 5. Refer to director digital sales. CONDITION: Stable. The daughter is in the room CARDIOVASCULAR STATUS: Stable with no evidence of fluid overload. TIME SPENT: More than 30 minutes. Plan and coordination of the patient's care discussed in the presence of nurse. LEYDA
[2017-11-26] MEDS: CLARITIN PO SCH (08:24)
[2017-11-26] MEDS: PROTONIX IV IVP SCH (08:25)
[2017-11-26] MEDS: MICRO-K CAP PO SCH (08:25)
[2017-11-26] MEDS: LOVENOX SUBCUT SCH (08:25)
[2017-11-26] MEDS: ASPIRIN CHEWABLE PO SCH (08:25)
--- NOTE | 2017-11-26 08:33 | PCM.PROG ---
Attending Provider: ATTENDING PROVIDER: Dr. DEBORA OLIVER This patient is seen with Pam Martinez, Nurse Practitioner. DATE OF SERVICE: 11/26/17 SUBJECTIVE: This 87 year old WHITE/ M was hospitalized 11/22/17. The patient is lying in bed, alert. He has been up and about. He has had no vomiting or nausea and is eating 100% of meals. Amylase and lipase significantly improved as of yesterday. REVIEW OF SYSTEMS: CONSTITUTIONAL: No night sweats. No fatigue, malaise, lethargy. No fever or chills. HEENT: Eyes: No visual changes. No eye pain. No eye discharge. ENT: No runny nose. No epistaxis. No sinus pain. No odynophagia. No congestion. RESPIRATORY: No cough, no congestion. No hemoptysis. No shortness of breath. CARDIOVASCULAR: No angina symptoms. No CHF symptoms. No atypical chest pain for CAD. No palpitations. No orthopnea.. GASTROINTESTINAL: Slight tenderness left upper quadrant. No abdominal pain. No nausea or vomiting. No diarrhea or constipation. No hematemesis. No hematochezia. GENITOURINARY: No urgency. No frequency. No dysuria. No hematuria. No obstructive symptoms. No discharge. No pain. No significant abnormal bleeding. MUSCULOSKELETAL: No musculoskeletal pain; no joint swelling. NEUROLOGICAL: Awake, alert, oriented to time, place and person. No headache. No neck pain. No syncope. No seizures. No dizziness. PSYCHIATRIC: Not anxious. No depression. No suicidal thoughts. No homicidal thoughts. SKIN: No rash. No lesions. No wounds. ENDOCRINE: No unexplained weight loss. No weight gain. HEMATOLOGIC/LYMPHATIC: No anemia. No purpura. No petechiae. No prolonged or excessive bleeding. No palpable lymph nodes. PHYSICAL EXAMINATION: GENERAL: The patient is awake, alert and oriented, lying in bed in no distress. VITAL SIGNS: Temperature 98.1 F, Pulse 68, Respiratory Rate 20, BP 114/65, Pulse Ox 96% HEENT: Head normocephalic, atraumatic. Eyes: Extraocular muscles are intact. Pupils are equal, round and reactive to light and accommodation. Ears: No lesions. Nose appeared normal. Throat: No exudate or erythema. NECK: Supple. No JVD, no carotid bruit. No lymphadenopathy or thyromegaly. LUNGS: Clear to auscultation. Percussion note normal. Chest symmetrical. HEART: S1, S2, no S3. No murmurs. No cyanosis or clubbing. No ascites. Pulses: Dorsalis pedis and posterior tibial pulses +1 to +2 both sides. ABDOMEN: Soft. Abdominal tenderness left upper quadrant. Bowel sounds active. No CVA tenderness. No mass felt. EXTREMITIES: No edema. Full range of motion of all extremities, equal. NEUROLOGIC: No focal deficit. Cranial nerves II through XII are grossly intact. No headache, no double vision or headache. SKIN: Not dry. Intact. Turgor-normal. LYMPHATIC: No palpable lymph nodes/no lymphedema. MUSCULOSKELETAL: Normal joints with no swelling. Muscle tone is normal. LAB REVIEW: 11/26/17 04:15 11/26/17 04:15 11/26/17 04:15: Sodium 140, Potassium 3.7, Chloride 108 H, Carbon Dioxide 24, Anion Gap 11.7, BUN 8, Creatinine 0.84, Estimated GFR (MDRD) 86.00, BUN/ Creatinine Ratio 9.52, Glucose 125 H, Calcium 8.5, Total Bilirubin 0.7, AST 20, ALT 30, Alkaline Phosphatase 67, Total Protein 5.7 L, Albumin 2.7 L, Globulin 3.0, Albumin/Globulin Ratio 0.90 11/26/17 04:15: WBC 6.23, RBC 3.94 L, Hgb 11.9 L, Hct 34.6 L, MCV 87.8, MCH 30.2 , MCHC 34.4, RDW Coeff of Andi 14.1, Plt Count 260, Immature Gran % (Auto) 0.2, Neut % (Auto) 49.1, Lymph % (Auto) 34.2, Harmon % (Auto) 11.6 H, Eos % (Auto) 3.9 , Baso % (Auto) 1.0, Immature Gran # (Auto) 0.0, Neut # (Auto) 3.1, Lymph # ( Auto) 2.1, Harmon # (Auto) 0.7, Eos # (Auto) 0.2, Baso # (Auto) 0.1 ASSESSMENT: 1. Acute pancreatitis, resolving 2. Hypokalemia, resolved 3. Hypertension PLAN: 1. Anticipate discharge 2. Amylase and lipase today 3. Referral with Dr. Pedrito as this is the second occurrence of pancreatitis within the past 3 months Plan and coordination of the patient's care discussed in the presence of Ssis Architect and nurse. CONDITION: Stable SCRIBED BY: GARRICK STRICKLAND Mop Handle Assembler scribed while in presence of service performed by Dr. Oliver/Pam Martinez APRN on 11/26/17 ([id number])
--- NOTE | 2017-11-26 09:47 | PN ---
DATE OF SERVICE: 11/23/17 SUBJECTIVE: 87-year-old white male hospitalized with acute pancreatitis. The patient's condition seems to have improved. His amylase level is down. He is feeling better. He is hungry. The daughter is in the room. REVIEW OF SYSTEMS: CONSTITUTIONAL: No night sweats. No fatigue, malaise, lethargy. No fever or chills. HEENT: Eyes: No visual changes. No eye pain. No eye discharge. ENT: No runny nose. No epistaxis. No sinus pain. No sore throat. No odynophagia. No congestion. RESPIRATORY: No cough, no congestion. No hemoptysis. No shortness of breath. CARDIOVASCULAR: No angina symptoms. No CHF symptoms. No atypical chest pain for CAD. No palpitations. No PND. No orthopnea. GASTROINTESTINAL: Appetite has improved. No abdominal pain. No nausea or vomiting. No diarrhea or constipation. No hematemesis. No hematochezia. GENITOURINARY: No urgency. No frequency. No dysuria. No hematuria. No obstructive symptoms. No discharge. No pain. No significant abnormal bleeding. MUSCULOSKELETAL: No musculoskeletal pain; no joint swelling. NEUROLOGICAL: No headache. No neck pain. No syncope. No seizures. No dizziness. PSYCHIATRIC: Not anxious. No depression. No suicidal thoughts. No homicidal thoughts. SKIN: No rash. No lesions. No wounds. ENDOCRINE: No unexplained weight loss. No weight gain. HEMATOLOGIC/LYMPHATIC: No anemia. No purpura. No petechiae. No prolonged or excessive bleeding. No palpable lymph nodes. PHYSICAL EXAMINATION: GENERAL: The patient is oriented to time, place and person. VITAL SIGNS: Temperature 98, pulse 70, respiratory rate 18, BP 97/60, pulse ox 95%. HEENT: Head normocephalic, atraumatic. Eyes: Extraocular muscles are intact. Pupils are equal, round and reactive to light and accommodation. Ears: No lesions. Nose appeared normal. Throat: No exudate or erythema. NECK: Supple. No JVD, no carotid bruit. No lymphadenopathy or thyromegaly. LUNGS: Clear to auscultation. Percussion note normal. Chest symmetrical. HEART: S1, S2, no S3. No murmurs. No cyanosis or clubbing. No ascites. Pulses: Dorsalis pedis and posterior tibial pulses +1 to +2 both sides. ABDOMEN: Soft. Nontender. Bowel sounds active. No CVA tenderness. No mass felt. EXTREMITIES: No edema. Full range of motion of all extremities, equal. NEUROLOGIC: No focal deficit. Cranial nerves II through XII are grossly intact. No headache, no double vision or headache. SKIN: Not dry. Intact. Turgor - normal. LYMPHATIC: No palpable lymph nodes/no lymphedema. MUSCULOSKELETAL: Normal joints with no swelling. Muscle tone is normal. LABS: Hemoglobin 10.9, hematocrit 32, WBC 9,000, normal differential. Creatinine 0.8, BUN 10, potassium 3.7. ASSESSMENT: 1. Acute pancreatitis, recurrent, seems to be resolving. 2. Coronary artery bypass surgery. PLAN: 1. Continue IV fluids. 2. Start patient on clear liquids to full liquids with soft diet like mashed potatoes and Jello, et cetera. 3. The patient is advised to be up and about. No evidence of fluid overload. TIME SPENT: More than 30 minutes. Plan and coordination of the patient's care discussed in the presence of nurse. LEYDA
--- NOTE | 2017-11-26 12:39 | CM.DICTOOL ---
ADMISSION: 11/22/17 11:32 DISCHARGE: NOVEMBER 26, 2017 DATE OF SERVICE: 11/26/17 FINAL DIAGNOSIS ACUTE PANCREATITIS, RECURRENT HYPERTENSION ANEMIA DYSLIPIDEMIA OSTEOARTHRITIS HYPOTHYROID PROSTATIC HYPERTROPHY AMI, 1983 AND 1985 S/P CABG S/P CATARACT SURGERY 2011 S/P PACEMAKER 1987 S/P SHOULDER SURGERY S/P KNEE SURGERY X 2 S/P WRIST SURGERY LAST VITALS Temp Pulse Resp BP Pulse Ox 97.8 F 70 20 130/71 94 L 11/26/17 10:00 11/26/17 10:00 11/26/17 10:00 11/26/17 10:00 11/26/17 10:00 TAKE THESE MEDICATIONS AT HOME Alprazolam (Xanax) 1 mg PO BEDTIME [facility] Last Admin: 11/25/17 21:57 Dose: 1 mg Aspirin (Aspirin Chewable) 81 mg PO DAILYWM [facility] Last Admin: 11/26/17 08:25 Dose: 81 mg Clopidogrel Bisulfate (Plavix) 75 mg PO QPM [facility] Last Admin: 11/25/17 16:37 Dose: 75 mg Docusate Sodium (Colace) 100 mg PO BEDTIME [facility] Last Admin: 11/25/17 21:57 Dose: 100 mg Levothyroxine Sodium (Synthroid) 100 mcg PO EVERY OTHER DAY@0630 [facility] Last Admin: 11/26/17 06:05 Dose: 100 mcg Cetirizine HCL (allery relief) 10 mg PO DAILY [facility] Last Admin: 11/26/17 08:24 Dose: 10 mg Nitroglycerin (Nitrostat) 0.4 mg SL Q5MIN X 3 DOSES PRN PRN Reason: Angina Esomeprazole Magnesium (Nexium) 40 mg PO DAILY [facility] Last Admin: 11/26/17 08:25 Dose: 40 mg Potassium Chloride (Micro-K Cap) 10 meq PO TID [facility] Last Admin: 11/26/17 08:25 Dose: 10 meq Terazosin HCl (Hytrin) 5 mg PO BEDTIME [facility] Last Admin: 11/25/17 21:57 Dose: 5 mg Cardizem 60 mg PO DAILY Last Admin: ALLERGIES No Known Allergies Allergy (Verified 10/29/17 20:47) DISCONTINUED MEDICATIONS Hold Mevacor until further instructed Cardizem 180 mg NEW PRESCRIPTIONS: Cardizen 60 mg daily SMOKING: Not applicable DISEASE SPECIFIC EDUCATION: Pancreatitis Diet Appointments LAB REVIEW: 11/26/17 04:15 11/26/17 04:15 11/26/17 04:15: Amylase 42, Lipase 69 11/26/17 04:15: Sodium 140, Potassium 3.7, Chloride 108 H, Carbon Dioxide 24, Anion Gap 11.7, BUN 8, Creatinine 0.84, Estimated GFR (MDRD) 86.00, BUN/ Creatinine Ratio 9.52, Glucose 125 H, Calcium 8.5, Total Bilirubin 0.7, AST 20, ALT 30, Alkaline Phosphatase 67, Total Protein 5.7 L, Albumin 2.7 L, Globulin 3.0, Albumin/Globulin Ratio 0.90 11/26/17 04:15: WBC 6.23, RBC 3.94 L, Hgb 11.9 L, Hct 34.6 L, MCV 87.8, MCH 30.2 , MCHC 34.4, RDW Coeff of Andi 14.1, Plt Count 260, Immature Gran % (Auto) 0.2, Neut % (Auto) 49.1, Lymph % (Auto) 34.2, Osborne % (Auto) 11.6 H, Eos % (Auto) 3.9 , Baso % (Auto) 1.0, Immature Gran # (Auto) 0.0, Neut # (Auto) 3.1, Lymph # ( Auto) 2.1, Osborne # (Auto) 0.7, Eos # (Auto) 0.2, Baso # (Auto) 0.1 PLAN: Discharge home Diet: Soft diet, low fat with at least 5-6 small meals daily No alcohol An appointment is scheduled with Dr. Snow/Pam Martinez APRN on December 03 at 10:45 am An appointment is scheduled with Lucrecia Mathews APRN for Dr. Zambrano on December 10 at 9:15 am Please take CD with you to the appointment Code Status: DNR Mr. Eric is alert and oriented x 3. He is independent with Activities of Daily Living. He is independent with bed mobility, transfers, feeding and is ambulatory with use of a straight cane. He denies abdominal pain or nausea. Meal intakes are good at 100%. No decubitus ulcers are noted, skin is free of wounds, rashes or irritation. Maurisio Snow MD Pam Martinez APRN
--- NOTE | 2017-11-26 13:18 | PN ---
DATE OF SERVICE: 11/26/17 SUBJECTIVE: The patient was seen and examined with Nurse Practitioner. He is up and about eating well. Soft diet is being tolerated well. REVIEW OF SYSTEMS: CONSTITUTIONAL: No night sweats. No fatigue, malaise, lethargy. No fever or chills. HEENT: Eyes: No visual changes. No eye pain. No eye discharge. ENT: No runny nose. No epistaxis. No sinus pain. No sore throat. No odynophagia. No congestion. RESPIRATORY: No cough, no congestion. No hemoptysis. No shortness of breath. CARDIOVASCULAR: No angina symptoms. No CHF symptoms. No atypical chest pain for CAD. No palpitations. No orthopnea. GASTROINTESTINAL: No abdominal pain. No nausea or vomiting. No diarrhea or constipation. No hematemesis. No hematochezia. Appetite has resolved with normal amylase and lipase reported yesterday. GENITOURINARY: No urgency. No frequency. No dysuria. No hematuria. No obstructive symptoms. No discharge. No pain. No significant abnormal bleeding. MUSCULOSKELETAL: No musculoskeletal pain; no joint swelling. NEUROLOGICAL: No headache. No neck pain. No syncope. No seizures. No dizziness. PSYCHIATRIC: Not anxious. No depression. No suicidal thoughts. No homicidal thoughts. SKIN: No rash. No lesions. No wounds. ENDOCRINE: No unexplained weight loss. No weight gain. HEMATOLOGIC/LYMPHATIC: No anemia. No purpura. No petechiae. No prolonged or excessive bleeding. No palpable lymph nodes. PHYSICAL EXAMINATION: HEENT: Head normocephalic, atraumatic. Eyes: Extraocular muscles are intact. Pupils are equal, round and reactive to light and accommodation. Ears: No lesions. Nose appeared normal. Throat: No exudate or erythema. NECK: Supple. No JVD, no carotid bruit. No lymphadenopathy or thyromegaly. LUNGS: Clear to auscultation. Percussion note normal. Chest symmetrical. HEART: S1, S2, no S3. No murmurs. No cyanosis or clubbing. No ascites. Pulses: Dorsalis pedis and posterior tibial pulses +1 to +2 both sides. ABDOMEN: Soft. Nontender. Bowel sounds active. No CVA tenderness. No mass felt. EXTREMITIES: No edema. Full range of motion of all extremities, equal. NEUROLOGIC: No focal deficit. Cranial nerves II through XII are grossly intact. No headache, no double vision or headache. SKIN: Not dry. Intact. Turgor - normal. LYMPHATIC: No palpable lymph nodes/no lymphedema. MUSCULOSKELETAL: Normal joints with no swelling. Muscle tone is normal. ASSESSMENT: 1. Pancreatitis, etiology unknown. PLAN: 1. The patient is referred to Dr. Zambrano who is gastrologist. CONDITION: Stable. TIME SPENT: More than 30 minutes. Plan and coordination of the patient's care discussed in the presence of nurse. LEYDA
--- NOTE | 2017-11-26 13:19 | PN ---
11/22/17: Level 5 11/23/17: Intermediate 11/24/17: Intermediate 11/25/17: Intermediate 11/26/17: D as in discharge MTDD
[2017-11-26 14:09] VITALS: BP 127/68; TEMP 98
--- NOTE | 2017-11-27 11:19 | DS ---
DATE OF SERVICE: 11/26/17 FINAL DIAGNOSIS: 1. ACUTE PANCREATITIS, RECURRENT 2. HYPERTENSION 3. ANEMIA 4. DYSLIPIDEMIA 5. OSTEOARTHRITIS 6. HYPOTHYROID 7. PROSTATIC HYPERTROPHY 8. AMI, 1983 AND 1985 9. STATUS POST CABG 10. STATUS POST CATARACT SURGERY 2011 11. STATUS POST PACEMAKER 1987 12. STATUS POST SHOULDER SURGERY 13. STATUS POST KNEE SURGERY TIMES TWO 14. STATUS POST WRIST SURGERY DISCHARGE INSTRUCTIONS: Followup appointment is scheduled with Dr. Snow/Pam Martinez APRN on at 10:45 a.m. An appointment is scheduled with Lucrecia Mathews APRN for Dr. Zambrano on December 10 at 9:15 a.m. Please take CD with you to the appointment. MEDICATIONS AT DISCHARGE: Xanax 1 mg p.o. bedtime LIZETT Aspirin 81 mg p.o. daily with meal LIZETT Plavix 75 mg p.o. q.p.m. LIZETT Colace 100 mg p.o. bedtime LIZETT Synthroid 100 mcg p.o. every other ay @ 0630 LIZETT Cetirizine 10 mg p.o. daily LIZETT Nitrostat 0.4 mg SL q.5 min times three doses p.r.n. Nexium 40 mg p.o. daily LIZETT Micro-K Cap 10 mEq p.o. t.i.d. LIZETT Hytrin 5 mg p.o. bedtime LIZETT Cardizem 60 mg p.o. daily DISCONTINUED MEDICATIONS: Hold Mevacor until further instructed Cardizem 180 mg NEW PRESCRIPTIONS: Cardizem 60 mg daily DIET INSTRUCTIONS: Soft diet, low fat with at least 5-6 small meals daily. No alcohol. ACTIVITY: SMOKING: N/A DISEASE SPECIFIC EDUCATION: Pancreatitis Diet Appointments HOSPITAL COURSE: This is an 87-year-old white male who was recently hospitalized back in October for acute pancreatitis. He presented to the emergency room with left upper quadrant pain, nausea, vomited times one. Amylase and lipase were both significantly elevated, amylase was in the 600's, lipase was up to 1000. CT scan showed pancreatic head stranding significant with pancreatitis. Otherwise is normal. There is no obstruction. The patient does not take any medications that could cause pancreatitis. There is no obvious cause for this. He does not drink alcohol. He was admitted, made NPO, placed on IV fluids at 75 cc/hr NS. Over the course of the past several days, his liver enzymes have significantly improved. Today amylase 40, lipase 69. He denies any nausea. He has been eating 100% of his meals for the past 48 hours. He has been up and about since yesterday. He has not had any vomiting. He has previously seen Dr. Zambrano for his colonoscopy so we have set up a followup appointment with Dr. Zambrano for the 12/09/17 for the recurrent pancreatitis. Both he and his daughter are made aware. All of his home medications have been continued with exception of he was hypotensive on admission to the emergency room with blood pressure 80's/60's and they have been holding his Cardizem. Will restart this at 60 mg a day. Otherwise he has been doing well. Today on physical exam he shows slight tenderness to palpation in the left upper quadrant but is not rigid and he is not guarding. Again, he has been eating 100% of his meals and states he feels well enough to go home so we will followup with him in the office next week and then he is to keep his appointment with Dr. Zambrano. CODE STATUS: DNR TIME SPENT: More than 60 minutes. MIGUELD
== END 2017-11-26 14:20 | disposition home or self-care (01) | DRG 391 ==
LOC: ED 09:32 → MEDSURG A 11:32
PROVIDERS: ADMIT Internal Medicine; ATTEND Internal Medicine
DX: R10.31 Right lower quadrant pain (principal); K85.00 Idiopathic acute pancreatitis without necrosis or infection; E86.0 Dehydration; E03.9 Hypothyroidism, unspecified; E78.5 Hyperlipidemia, unspecified; E87.6 Hypokalemia; I10 Essential (primary) hypertension; R11.0 Nausea; D64.9 Anemia, unspecified; M19.90 Unspecified osteoarthritis, unspecified site
CPT/HCPCS: 36415; 80053; 80061; 81001; 82150; 83690; 85025; 93005; 93010; 96360; 96375; 99284

== ENCOUNTER 2017-12-29 13:36 | Outpatient (CLI) | END 2017-12-29 13:37 | disposition home or self-care (01) | LOC: LAB 13:36 | PROVIDERS: ATTEND Clinical Nurse Specialist Adult Health | DX: Z51.81 Encounter for therapeutic drug level monitoring (principal); Z79.01 Long term (current) use of anticoagulants; Z79.82 Long term (current) use of aspirin; Z01.818 Encounter for other preprocedural examination | CPT/HCPCS: 36415; 85025; 85610; 85730 ==

== ENCOUNTER 2018-01-06 20:23 | Emergency (ER) ==
[2018-01-06] MEDS ORDERED: SODIUM CHLORIDE 1,000 ML IV STA (20:27)
[2018-01-06] MEDS ORDERED: NITROSTAT SL STA (20:37)
[2018-01-06 20:38] VITALS: BP 143/82; TEMP 96.4; BMI 24.7
[2018-01-06] MEDS ORDERED: ASPIRIN EC PO STA (20:38)
[2018-01-06] MEDS ORDERED: GI COCKTAIL PO STA (20:39)
[2018-01-06] MEDS ORDERED: NITROSTAT SL ONE (20:39)
[2018-01-06] MEDS ORDERED: ASPIRIN CHEWABLE ONE (20:40)
--- NOTE | 2018-01-06 21:16 | ED.PDOC ---
General ED Provider: Dr. RICO GREWAL Chief Complaint: Chest Pain Stated Complaint: Marly states he has had mild Angina pain in the past to night he had severe pain 5/10 despite taking nitroglycerin he did not feel better so came to the ER. He has a history of CAD. States that the chest pain is located on the left side of chest with radation to the left shoulder Time Seen by Physician: 20:30 Mode of Arrival: Wheelchair Information Source: Patient, Family Primary Care Provider: DEBORA OLIVER Sepsis Protocol: For patient's 13 years and over: Temp is 96.8 and below OR 101 and greater Pulse >90 BPM Resp >20/minute Acutely Altered Mental Status Are patient's symptoms suggestive of a new infection, such as: -Pneumonia -Skin, Soft Tissue -Endocarditis -UTI -Bone, Joint Infection -Implantable Device -Acute Abdominal Infection -Wound Infection -Meningitis -Blood Stream Catheter Infection -Unknown Past Medical History - Past Medical History Previously Healthy: No Endocrine: Reports: Hypothyroid Cardiovascular: Reports: CAD, [place], Hypertension Respiratory: Reports: None Hematological: Reports: None Gastrointestinal: Reports: GERD Genitourinary: Reports: None Neuro/Psych: Reports: None Musculoskeletal: Reports: None Cancer: Reports: None - Surgical History General Surgical History: Reports: Stent, Heart Cath, Pacemaker, Orthopedic ( knee x2, shoulder, forearm (post trauma - 4 fractures)), Hernia Repair (x2) - Family History Family History: Reports: Unknown - Social History Smoking Status: Former smoker Hx Substance Use: No Alcohol Screening: None - Immunizations Influenza Vaccine within 12 Months: No Pneumococcal Vaccine up to Date: No Physician Notification - Case Discussed Physician Notified: Dr Zeng Time of Notification: 21:35 (Accepted for transfer ER-ER) Course - Course Hematology/Chemistry: 01/06/18 20:34 01/06/18 20:34 Orders, Labs, Meds: Lab Review 01/06/18 01/06/18 20:34 20:34 WBC 6.78 RBC 4.26 L Hgb 12.7 L Hct 38.2 L MCV 89.7 MCH 29.8 MCHC 33.2 RDW Coeff of Andi 14.1 Plt Count 254 Immature Gran % (Auto) 0.3 Neut % (Auto) 48.6 Lymph % (Auto) 37.9 Norman % (Auto) 10.2 H Eos % (Auto) 2.1 Baso % (Auto) 0.9 Immature Gran # (Auto) 0.0 Neut # (Auto) 3.3 Lymph # (Auto) 2.6 Norman # (Auto) 0.7 Eos # (Auto) 0.1 Baso # (Auto) 0.1 Sodium 141.0 Potassium 3.70 Chloride 104.0 Carbon Dioxide 28.0 Anion Gap 12.70 BUN 10.0 Creatinine 1.00 Estimated GFR (MDRD) 70.00 BUN/Creatinine Ratio 10.00 Glucose 217.0 H Calcium 8.30 L Total Bilirubin 0.50 AST 30.0 ALT 17.0 Alkaline Phosphatase 48.0 L Total Creatine Kinase 52.1 L Troponin I < 0.012 Total Protein 6.50 Albumin 3.50 Globulin 3.00 Albumin/Globulin Ratio 1.16 Orders Category Date Time Status EKG-(ED ONLY) Stat CARDIO 01/06/18 20:27 Completed EKG-(ED ONLY) Stat CARDIO 01/06/18 20:39 Completed ED APPLY O2 .ONCE EMERGENCY 01/06/18 20:27 Active ED IV/MEDIPORT/POWERPORT .ONCE EMERGENCY 01/06/18 20:27 Active CBC W/ AUTO DIFF Stat LAB 01/06/18 20:34 Completed COMPREHENSIVE METABOLIC PANEL Stat LAB 01/06/18 20:34 Completed CREATINE KINASE Stat LAB 01/06/18 20:34 Completed TROPONIN I Stat LAB 01/06/18 20:34 Completed 0.9 % Sodium Chloride [Saline Flush] MEDS 01/06/18 20:27 Ordered 1 syr IVF PRN PRN Aspirin [Aspirin Chewable] MEDS 01/06/18 20:40 Discontinued 324 mg .ROUTE .STK-MED ONE Aspirin [Aspirin EC] MEDS 01/06/18 20:38 Discontinued 325 mg PO ONCE STA Mag-Al Plus//Lidocaine [Gi Cocktail] MEDS 01/06/18 20:39 Discontinued 30 ml PO ONCE STA Nitroglycerin [Nitrostat] MEDS 01/06/18 20:39 Discontinued 0.4 mg SL .STK-MED ONE Nitroglycerin [Nitrostat] MEDS 01/06/18 20:37 Discontinued 0.4 mg SL ONCE STA Sodium Chloride 0.9% [Sodium Chloride] 1,000 ml MEDS 01/06/18 20:27 Active IV 125 mls/hr CHEST, 1V AP ONLY Stat RADS 01/06/18 20:27 Taken Medications Generic Name Dose Route Start Last Admin Trade Name Riaz PRN Reason Stop Dose Admin Sodium Chloride 1,000 mls @ 125 mls/hr 01/06/18 20:27 01/06/18 20:37 Sodium Chloride IV 01/07/18 04:26 125 mls/hr .Q8H STA Administration Sodium Chloride 1 syr 01/06/18 20:27 01/06/18 20:37 Saline Flush IVF 1 syr PRN PRN Administration To flush IV Discontinued Medications Generic Name Dose Route Start Last Admin Trade Name Riaz PRN Reason Stop Dose Admin Al Hydroxide/Mg Hydroxide 30 ml 01/06/18 20:39 01/06/18 20:45 Gi Cocktail PO 01/06/18 20:40 30 ml ONCE STA Administration Aspirin 325 mg 01/06/18 20:38 01/06/18 20:43 Aspirin Ec PO 01/06/18 20:39 Not Given ONCE STA Nitroglycerin 0.4 mg 01/06/18 20:37 01/06/18 20:42 Nitrostat SL 01/06/18 20:38 0.4 mg ONCE STA Administration Vital Signs: Temp Pulse Resp BP Pulse Ox 01/06/18 20:23 96.4 F L 67 20 143/82 H 96 Departure - Departure Allergies/Adverse Reactions: Allergies No Known Allergies Allergy (Verified 01/06/18 20:28) Home Medications: Ambulatory Orders Alprazolam 1 mg PO BEDTIME 02/13/15 Aspirin [Aspirin Chewable] 81 mg PO DAILYWM 02/13/15 Cetirizine HCl [Allergy Relief] 10 mg PO DAILY 02/13/15 Esomeprazole Magnesium [Nexium] 40 mg PO DAILY 02/13/15 Levothyroxine Sodium [Synthroid] 100 mcg PO EVERY OTHER DAY 02/13/15 Terazosin HCl [Hytrin] 5 mg PO BEDTIME 02/13/15 Nitroglycerin [Nitrostat] 0.4 mg SL Q5MIN X 3 DOSES PRN #1 tab.subl 02/14/15 Clopidogrel Bisulfate [Clopidogrel] 75 mg PO QPM 04/04/17 Docusate Sodium [Colace] 100 mg PO BEDTIME 04/07/17 Diltiazem HCl [Cardizem] 60 mg PO DAILY #30 tablet 11/26/17
--- NOTE | 2018-01-06 21:48 | ED.PDOC ---
General ED Provider: Dr. RICO GREWAL Chief Complaint: Chest Pain Stated Complaint: Patient states he has had mild Angina pain in the past to night he had severe pain 5/10 despite taking nitroglycerin he did not feel better so came to the ER. He has a history of CAD. States that the chest pain is located on the left side of chest with radation to the left shoulder Time Seen by Physician: 21:46 Mode of Arrival: Wheelchair Information Source: Patient, Family Exam Limitations: No limitations Primary Care Provider: DEBORA OLIVER Nursing and Triage Documentation Reviewed and Agree: Yes Does patient meet sepsis criteria?: No System Inflammatory Response Syndrome: Not Applicable Sepsis Protocol: For patient's 13 years and over: Temp is 96.8 and below OR 101 and greater Pulse >90 BPM Resp >20/minute Acutely Altered Mental Status Are patient's symptoms suggestive of a new infection, such as: -Pneumonia -Skin, Soft Tissue -Endocarditis -UTI -Bone, Joint Infection -Implantable Device -Acute Abdominal Infection -Wound Infection -Meningitis -Blood Stream Catheter Infection -Unknown Cardiovascular Complaint Exam - Chest Pain Complaint/Exam Onset: Sudden Duration: 1 hour ago Symptoms Are: Still present Timing: Constant Length of Chest Pain Episodes: 30 min Initial Severity: Moderate Current Severity: Moderate Location: Reports: Left anterior Pain Radiates: Reports: Left shoulder Character: Reports: Heaviness Aggravating: Reports: None Alleviating: Reports: Nitro (only partially ) Associated Signs and Symptoms: Reports: Short of air (mild ). Denies: Diaphoresis, Nausea, Vomiting, Fever, Palpitations, Cough, Hemoptysis, Back pain , Abdominal pain, Dizziness, Calf pain, Calf swelling Related Surgical History: Denies: Cardiac Cath, Pacemaker History of Healthcare-Acquired Pneumonia: Reports: No AMI/ACS Risk Factors: Reports: Myocardial Infarction, Hypertension TAD Risk Factors: Reports: Hypertension Recent Stress Test: No Recent Echo/LV Function: No JVD Present: No Subcutaneous Emphysema Present: No Diminshed Breath Sounds: No Reproducible Chest Wall Pain: No If Risk Factors for AMI/ACS Consider: EKG, Cardiac Enzymes, Serial Studies, Oxygen, Aspirin Care and Dx Studies Discussed With: Family, PCP [facility] Editor Consulted: No Differential Diagnoses: ACS, Unstable Angina Patient Advised to Stop Smoking: Yes Review of Systems - Review Of Systems Constitutional: Reports: No symptoms Eyes: Reports: No symptoms Ears, Nose, Mouth, Throat: Reports: No symptoms Respiratory: Reports: Short of air (mild ) Cardiac: Reports: Chest pain GI: Reports: No symptoms : Reports: No symptoms Musculoskeletal: Reports: No symptoms Skin: Reports: No symptoms Neurological: Reports: No symptoms Endocrine: Reports: No symptoms Hematologic/Lymphatic: Reports: No symptoms All Other Systems: Reviewed and Negative Past Medical History - Past Medical History Previously Healthy: No Endocrine: Reports: Hypothyroid Cardiovascular: Reports: CAD, [place], Hypertension Respiratory: Reports: None Hematological: Reports: None Gastrointestinal: Reports: GERD Genitourinary: Reports: None Neuro/Psych: Reports: None Musculoskeletal: Reports: None Cancer: Reports: None - Surgical History General Surgical History: Reports: Stent, Heart Cath, Pacemaker, Orthopedic ( knee x2, shoulder, forearm (post trauma - 4 fractures)), Hernia Repair (x2) - Family History Family History: Reports: Unknown - Social History Smoking Status: Former smoker Hx Substance Use: No Alcohol Screening: None - Immunizations Influenza Vaccine within 12 Months: No Pneumococcal Vaccine up to Date: No Physical Exam - Physical Exam Appearance: Ill-appearing, Well-nourished Ill-appearing: Moderate Pain Distress: Moderate Eyes: YONI, EOMI, Conjunctiva clear ENT: Ears normal, Nose normal, Oropharynx normal Neck: Supple Respiratory: Airway patent, Breath sounds clear, Breath sounds equal, Respirations nonlabored Cardiovascular: RRR, Pulses normal, No rub, No murmur GI/: Soft, Nontender, No masses, Bowel sounds normal, No Organomegaly Musculoskeletal: Normal strength, ROM intact, No edema, No calf tenderness Skin: Warm, Dry, Normal color Neurological: Sensation intact, Motor intact, Cranial nerves intact, Alert, Oriented Psychiatric: Anxious Interpretation - Radiology Interpretation Radiology Interpretation By: ED Physician Radiology Results: Negative Exam Interpreted: Portable CXR - EKG Interpretation Time of EKG #1: 20:25 Rate: Normal Rhythm: Sinus Ectopy: None [place]: Left ST Segment: Normal Interpretation: 2024 EKG Comparison: No significant changes Time of EKG #2: 20:46 Rate: Normal Rhythm: Sinus Ectopy: None [place]: Left ST Segment: Normal Re-Evaluation - Re-Evaluation Time of Re-Evaluation: 22:00 Status: Improved Vital Signs Stable: Yes Pain Level: 2/10 Appearance: NAD Physician Notification - Case Discussed Physician Notified: Karri Time of Notification: 21:40 Critical Care Note - Critical Care Note Total Time (mins): 45 Course - Course Hematology/Chemistry: 01/06/18 20:34 01/06/18 20:34 Orders, Labs, Meds: Lab Review 01/06/18 01/06/18 20:34 20:34 WBC 6.78 RBC 4.26 L Hgb 12.7 L Hct 38.2 L MCV 89.7 MCH 29.8 MCHC 33.2 RDW Coeff of Andi 14.1 Plt Count 254 Immature Gran % (Auto) 0.3 Neut % (Auto) 48.6 Lymph % (Auto) 37.9 Gregory % (Auto) 10.2 H Eos % (Auto) 2.1 Baso % (Auto) 0.9 Immature Gran # (Auto) 0.0 Neut # (Auto) 3.3 Lymph # (Auto) 2.6 Gregory # (Auto) 0.7 Eos # (Auto) 0.1 Baso # (Auto) 0.1 Sodium 141.0 Potassium 3.70 Chloride 104.0 Carbon Dioxide 28.0 Anion Gap 12.70 BUN 10.0 Creatinine 1.00 Estimated GFR (MDRD) 70.00 BUN/Creatinine Ratio 10.00 Glucose 217.0 H Calcium 8.30 L Total Bilirubin 0.50 AST 30.0 ALT 17.0 Alkaline Phosphatase 48.0 L Total Creatine Kinase 52.1 L Troponin I < 0.012 Total Protein 6.50 Albumin 3.50 Globulin 3.00 Albumin/Globulin Ratio 1.16 Orders Category Date Time Status EKG-(ED ONLY) Stat CARDIO 01/06/18 20:27 Completed EKG-(ED ONLY) Stat CARDIO 01/06/18 20:39 Completed ED APPLY O2 .ONCE EMERGENCY 01/06/18 20:27 Active ED IV/MEDIPORT/POWERPORT .ONCE EMERGENCY 01/06/18 20:27 Active CBC W/ AUTO DIFF Stat LAB 01/06/18 20:34 Completed COMPREHENSIVE METABOLIC PANEL Stat LAB 01/06/18 20:34 Completed CREATINE KINASE Stat LAB 01/06/18 20:34 Completed TROPONIN I Stat LAB 01/06/18 20:34 Completed 0.9 % Sodium Chloride [Saline Flush] MEDS 01/06/18 20:27 Discontinued 1 syr IVF PRN PRN Aspirin [Aspirin Chewable] MEDS 01/06/18 20:40 Discontinued 324 mg .ROUTE .STK-MED ONE Aspirin [Aspirin EC] MEDS 01/06/18 20:38 Discontinued 325 mg PO ONCE STA Mag-Al Plus//Lidocaine [Gi Cocktail] MEDS 01/06/18 20:39 Discontinued 30 ml PO ONCE STA Nitroglycerin [Nitrostat] MEDS 01/06/18 20:39 Discontinued 0.4 mg SL .STK-MED ONE Nitroglycerin [Nitrostat] MEDS 01/06/18 20:37 Discontinued 0.4 mg SL ONCE STA Sodium Chloride 0.9% [Sodium Chloride] 1,000 ml MEDS 01/06/18 20:27 Discontinued IV 125 mls/hr CHEST, 1V AP ONLY Stat RADS 01/06/18 20:27 Completed Medications Discontinued Medications Generic Name Dose Route Start Last Admin Trade Name Freq PRN Reason Stop Dose Admin Al Hydroxide/Mg Hydroxide 30 ml 01/06/18 20:39 01/06/18 20:45 Gi Cocktail PO 01/06/18 20:40 30 ml ONCE STA Administration Aspirin 325 mg 01/06/18 20:38 01/06/18 20:43 Aspirin Ec PO 01/06/18 20:39 Not Given ONCE STA Sodium Chloride 1,000 mls @ 125 mls/hr 01/06/18 20:27 01/06/18 20:37 Sodium Chloride IV 01/07/18 04:26 125 mls/hr .Q8H STA Administration Nitroglycerin 0.4 mg 01/06/18 20:37 01/06/18 20:42 Nitrostat SL 01/06/18 20:38 0.4 mg ONCE STA Administration Sodium Chloride 1 syr 01/06/18 20:27 01/06/18 20:37 Saline Flush IVF 1 syr PRN PRN Administration To flush IV Vital Signs: Temp Pulse Resp BP Pulse Ox 01/06/18 20:23 96.4 F L 67 20 143/82 H 96 PORTIA Risk Score Age >/= 65: Yes >/= 3 CAD Risk Factors: Yes Known CAD (Stenosis >/= 50%): No ASA Use in Past 7 Days: Yes Severe Angina (>/= 2 episodes in 24 hours): Yes EKG ST Changes >/= 0.5mm: No Postive Cardiac Marker: No PORTIA Total Score: 4 PORTIA Risk Score: Risk Score Odds of by 30D 0 0.1 (0.1-0.2) 1 0.3 (0.2-0.3) 2 0.4 (0.3-0.5) 3 0.7 (0.6-0.9) 4 1.2 (1.0-1.5) 5 2.2 (1.9-2.6) 6 3.0 (2.5-3.6) 7 4.8 (3.8-6.1) Departure - Departure Time of Disposition: 22:00 Disposition: TSF SHORT-TRM HOSP Discharge Problem: Unstable angina pectoris Condition: Fair Pt referred to PMD for follow-up: Yes IPMP verified?: No Allergies/Adverse Reactions: Allergies No Known Allergies Allergy (Verified 01/06/18 20:28) Home Medications: Ambulatory Orders Alprazolam 1 mg PO BEDTIME 02/13/15 Aspirin [Aspirin Chewable] 81 mg PO DAILYWM 02/13/15 Cetirizine HCl [Allergy Relief] 10 mg PO DAILY 02/13/15 Esomeprazole Magnesium [Nexium] 40 mg PO DAILY 02/13/15 Levothyroxine Sodium [Synthroid] 100 mcg PO EVERY OTHER DAY 02/13/15 Terazosin HCl [Hytrin] 5 mg PO BEDTIME 02/13/15 Nitroglycerin [Nitrostat] 0.4 mg SL Q5MIN X 3 DOSES PRN #1 tab.subl 02/14/15 Clopidogrel Bisulfate [Clopidogrel] 75 mg PO QPM 04/04/17 Docusate Sodium [Colace] 100 mg PO BEDTIME 04/07/17 Diltiazem HCl [Cardizem] 60 mg PO DAILY #30 tablet 11/26/17 Pt. Stabilized Within Hospital's Capabilities/Transferred To: [facility]. Disposition Discussed With: Patient, Family
--- NOTE | 2018-01-07 06:18 | DI ---
EXAM: AP single view of the chest. HISTORY: Chest pain. FINDINGS: There is a two lead pacemaker. The bones are unremarkable. The cardiac silhouette and pul monary vasculature are within normal limits. The costophrenic angles are clear. No infiltrate or co nsolidation. There are calcified granulomas. Impression: No acute cardiopulmonary disease.
== END 2018-01-06 22:00 | disposition short-term general hospital (02) ==
LOC: ED 20:23
DX: I20.0 Unstable angina (principal); I10 Essential (primary) hypertension; I25.10 Atherosclerotic heart disease of native coronary artery without angina pectoris; R06.02 Shortness of breath; I25.2 Old myocardial infarction; E03.9 Hypothyroidism, unspecified; Z95.0 Presence of cardiac pacemaker; Z95.5 Presence of coronary angioplasty implant and graft; Z79.899 Other long term (current) drug therapy
CPT/HCPCS: 36415; 80053; 82550; 84484; 85025; 93005; 93010; 96360; 96361; 99285

== ENCOUNTER 2018-02-23 10:43 | Emergency (ER) ==
[2018-02-23 10:49] VITALS: BP 102/59; TEMP 98.8; BMI 23.6
[2018-02-23] MEDS ORDERED: SODIUM CHLORIDE 500 ML IV STA (11:10)
--- NOTE | 2018-02-23 12:16 | CT ---
EXAM: CT ABDOMEN AND PELVIS HISTORY: Upper abdominal pain, recent cholecystectomy TECHNIQUE: CT abdomen and pelvis without intravenous contrast. Images were reconstructed using 5 mm section thickness. Reformations were prepared. COMPARISON: 11/22/2017 FINDINGS: Diagnostic limitations exist without including contrast enhanced images. The gallbladder has been re moved. The gallbladder fossa is relatively unremarkable. Mild gastric distension. There is relativ ailyn severe thickening of the duodenal sweep with mild to moderate regional right upper abdominal fat stranding. This stranding is also in the general region of the pancreatic head. No clearly defined fluid collections or abscesses. The remainder of the small bowel appears normal. Nonobstructive bow el gas pattern. There is scattered colonic diverticulosis becoming moderate at the sigmoid level. N ormal appendix. No focal hepatic or splenic lesions. Adrenal glands are normal. There is perinephric fat stranding which is stable and nonspecific. Moderate atherosclerotic disease. Urinary bladder is unremarkable. There is at least mild prostate enlargement. No ventral hernia. The bones reveal degenerative disc and facet disease of the spine. Bones appear demineralized. Lung bases reveal mild dependent atelec tasis. No pneumoperitoneum is seen. IMPRESSION: 1. Findings of the upper abdomen as described in the first paragraph of the report which would proba ernie be more consistent with duodenitis rather than pancreatitis although both are within the differen tial. Similar, although less noticeable picture seen on previous CT of 11/22/2017. Post cholecystec maria isabel. Gallbladder fossa is relatively unremarkable. 2. Moderate atherosclerotic disease.
--- NOTE | 2018-02-23 12:16 | CT ---
EXAM: CT chest without contrast HISTORY: Cough. DATE: 02/23/2018. COMPARISON: CT of the chest obtained on 10/29/2017. TECHNIQUE: The [address] images of the chest were obtained without contrast. Sagittal and coron al reconstructions were obtained. RADIATION: CTDIvol: 8.10 (body). Total DLP = 570.20 mGy-cm. FINDINGS: A small amount of dependent atelectasis is located within the bilateral lower lobes of the lungs. A punctate calcified granuloma is located within the apical segment of the left upper lobe n ear the oblique fissure. There is no focal consolidation, pleural effusion, or pneumothorax. No enl arged hilar or mediastinal lymph nodes are identified. The heart size is normal. The coronary arter ies contain calcified plaque. Calcifications are seen at the aortic valve. The thoracic aorta conta ins a small noncalcified plaque. A small amount of calcified plaque is seen in the partially imaged left carotid artery. Multiple surgical clips are seen in the right upper quadrant of the abdomen. T he gallbladder is not identified. The spleen contains multiple small calcified granulomas. The panc reas is small, possibly atrophic. A small amount of fat stranding surrounds the head and body of the pancreas. The bones are diffusely demineralized. There are moderate degenerative changes of the th oracic spine. A metallic orthopedic anchor is located within the right humeral head. A dual lead ca rdiac pacing device is implanted in the left anterior chest wall. IMPRESSION:. 1. No acute cardiopulmonary findings. 2. Possible pancreatitis. Clinical correlation is recommended. 3. Atherosclerosis, including coronary artery disease and carotid artery disease. 4. Probable cholecystectomy. 5. Diffuse bone demineralization suggestive of osteopenia or osteoporosis.
[2018-02-23] MEDS ORDERED: FLAGYL 500 MG/100 ML 500 MG in PREMIX 100 ML NS 1 BAG IV STA (12:51)
[2018-02-23] MEDS ORDERED: ZOSYN 4.5 GM 4.5 GM in SODIUM CHLORIDE 100 ML IV STA (12:51)
--- NOTE | 2018-02-23 12:54 | ED.PDOC ---
General ED Provider: Dr. AIDA LUCIO Chief Complaint: Weakness Stated Complaint: 87 yearsl old man in the E.R. for evaluation of weakness near syncope, chills Time Seen by Physician: 10:47 Mode of Arrival: Stretcher Information Source: Family Exam Limitations: No limitations Primary Care Provider: DEBORA OLIVER Referred to ED by: Other (LAZARO PRESENT WHEN I INFORMED THE FAMILY REGARDING SCANS, LABS AND REPORTS AND PMD TRANSFER REQUEST .) Nursing and Triage Documentation Reviewed and Agree: Yes Does patient meet sepsis criteria?: Yes If yes, has appropriate treatment been initiated?: Yes System Inflammatory Response Syndrome: Not Applicable Sepsis Protocol: For patient's 13 years and over: Temp is 96.8 and below OR 101 and greater Pulse >90 BPM Resp >20/minute Acutely Altered Mental Status Are patient's symptoms suggestive of a new infection, such as: -Pneumonia -Skin, Soft Tissue -Endocarditis -UTI -Bone, Joint Infection -Implantable Device -Acute Abdominal Infection -Wound Infection -Meningitis -Blood Stream Catheter Infection -Unknown Miscellaneous Complaint Exam - Complex/Multi-System Complaint/Exam Onset/Duration: 1 day Symptoms Are: Still present Episodes Lasting: Hours Initial Severity: Moderate Current Severity: Moderate Location of Pain: epigastric Pain Radiates to: no Character: dull Aggravating: none Associated Signs and Symptoms: Reports: Weakness, Abdominal pain, Decreased oral intake. Denies: Decreased responsiveness, Confusion, Agitation, Dizziness , Syncope, Headache, Short of air, Cough, Wheezing, Hemoptysis, Chest pain, Palpitations, Edema, Nausea, Vomiting, Diarrhea, Back pain, Dysuria, Hematemesis , Melena, Fever, Diaphoresis, Immunocompromised, Anticoagulation Therapy, Recent medication changes, Indwelling hospital medical biller, Prior MRSA, Prior VRE, Recent trauma, Remote trauma Recent Echo/LV Function: No Respiratory Distress: None JVD Present: No Tachypnea Present: No Stridor Present: No Abdominal Findings: Present: Normal findings Glascow Coma Scale (see protocol): 15 Meningeal Signs Positive: Yes Focal Weakness: Present: None Focal Sensory Loss: Present: None Gait: Normal Gag Reflex Present: Yes Skin Findings: Present: Normal findings Joint Swelling Present: No In-Dwelling Device Present: No Differential Diagnosis: Closed Cranial Trauma, Metabolic Abnormality, Sepsis Quality Indicators for Cardiac Chest Pain: EKG in 10min. Quality Indicators for AMI: EKG in 10min. Quality Indicators For Pneumonia/CAP: Blood Cultures-SCU admit, Antibiotics in 6hr-admit, SpO2 assessed, Empiric Antibiotic Rx, Vital signs, Mental status assessed Quality Indicator For Non-Traumatic Chest Pain/Syncope: EKG Performed Review of Systems - Review Of Systems Constitutional: Reports: Chills, Malaise, Weakness, Loss of appetite Eyes: Reports: No symptoms Ears, Nose, Mouth, Throat: Reports: No symptoms Respiratory: Reports: No symptoms Cardiac: Reports: No symptoms GI: Reports: Abdominal pain : Reports: No symptoms Musculoskeletal: Reports: No symptoms Skin: Reports: No symptoms Neurological: Reports: No symptoms Endocrine: Reports: No symptoms Hematologic/Lymphatic: Reports: No symptoms All Other Systems: Reviewed and Negative Past Medical History - Past Medical History Previously Healthy: No Endocrine: Reports: Hypothyroid Cardiovascular: Reports: CAD, [place], Hypertension Respiratory: Reports: None Hematological: Reports: None Gastrointestinal: Reports: GERD Genitourinary: Reports: None Neuro/Psych: Reports: None Musculoskeletal: Reports: None Cancer: Reports: None - Surgical History General Surgical History: Reports: Stent, Heart Cath, Pacemaker, Orthopedic ( knee x2, shoulder, forearm (post trauma - 4 fractures)), Hernia Repair (x2) - Family History Family History: Reports: Unknown - Social History Smoking Status: Former smoker Hx Substance Use: No Alcohol Screening: None - Immunizations Influenza Vaccine within 12 Months: No Pneumococcal Vaccine up to Date: No Physical Exam - Physical Exam Appearance: Well-appearing, No pain distress, Well-nourished Eyes: YONI, EOMI, Conjunctiva clear ENT: Ears normal, Nose normal, Oropharynx normal Respiratory: Airway patent, Breath sounds clear, Breath sounds equal, Respirations nonlabored Cardiovascular: RRR, Pulses normal, No rub, No murmur GI/: Soft, Nontender, No masses, Bowel sounds normal, No Organomegaly Musculoskeletal: Normal strength, ROM intact, No edema, No calf tenderness Skin: Warm, Dry, Normal color Neurological: Sensation intact, Motor intact, Reflexes intact, Cranial nerves intact, Alert, Oriented Psychiatric: Affect appropriate, Mood appropriate Interpretation - Radiology Interpretation Radiology Interpretation By: Radiologist Radiology Results: Positive (pancreatitis, duodenitis these findings are less noticeable since prior C.T. 11/22/2017) Re-Evaluation - Re-Evaluation Time of Re-Evaluation: 12:00 Status: Improved Vital Signs Stable: Yes Pain Level: 2/10 Appearance: NAD Lungs: Clear Skin: Warm and Dry Neuro: Alert and Oriented X3 CV: RRR - Re-Evaluation Time of Re-Evaluation: 14:50 Status: Improved Vital Signs Stable: Yes Pain Level: 2/10 Appearance: NAD Skin: Warm and Dry Neuro: Alert and Oriented X3 CV: RRR Physician Notification - Case Discussed Physician Notified: Bernie WELCH Time of Notification: 14:49 Critical Care Note - Critical Care Note Total Time (mins): 2 Course - Course Hematology/Chemistry: 02/23/18 11:30 02/23/18 11:30 Orders, Labs, Meds: Lab Review 02/23/18 02/23/18 02/23/18 11:20 11:30 11:30 WBC 24.24 H RBC 4.67 L Hgb 13.8 L Hct 40.4 L MCV 86.5 MCH 29.6 MCHC 34.2 RDW Coeff of Andi 14.0 Plt Count 267 Immature Gran % (Auto) 0.9 Neut % (Auto) 90.0 Lymph % (Auto) 2.6 L [place] % (Auto) 6.3 Eos % (Auto) 0.0 Baso % (Auto) 0.2 Immature Gran # (Auto) 0.2 Neut # (Auto) 21.8 H Lymph # (Auto) 0.6 [place] # (Auto) 1.5 Eos # (Auto) 0.0 Baso # (Auto) 0.0 PT INR APTT Puncture Site R brach O2 Saturation 97.0 ABG pH 7.449 ABG pCO2 29.8 L ABG pO2 82.0 L ABG HCO3 20.7 L ABG Total CO2 22 ABG Base Excess -3 L Alok Test + FiO2 % 21.0 Sodium 138.8 Potassium 3.44 L Chloride 107.9 H Carbon Dioxide 25.8 Anion Gap 8.54 BUN 10.1 Creatinine 1.05 Estimated GFR (MDRD) 67.00 BUN/Creatinine Ratio 9.61 Glucose 107.7 H Lactic Acid Calcium 8.49 Total Bilirubin 2.82 H AST 244.9 H ALT 148.3 H Alkaline Phosphatase 120.8 H Total Creatine Kinase 32.0 L Troponin I 0.050 Total Protein 6.28 L Albumin 3.44 L Globulin 2.84 Albumin/Globulin Ratio 1.21 Amylase 674.7 H* Lipase 7179.6 H Procalcitonin 02/23/18 02/23/18 02/23/18 11:30 11:30 11:30 WBC RBC Hgb Hct MCV MCH MCHC RDW Coeff of Andi Plt Count Immature Gran % (Auto) Neut % (Auto) Lymph % (Auto) [place] % (Auto) Eos % (Auto) Baso % (Auto) Immature Gran # (Auto) Neut # (Auto) Lymph # (Auto) [place] # (Auto) Eos # (Auto) Baso # (Auto) PT 10.4 INR 1.04 APTT 22.6 L Puncture Site O2 Saturation ABG pH ABG pCO2 ABG pO2 ABG HCO3 ABG Total CO2 ABG Base Excess Alok Test FiO2 % Sodium Potassium Chloride Carbon Dioxide Anion Gap BUN Creatinine Estimated GFR (MDRD) BUN/Creatinine Ratio Glucose Lactic Acid 2.24 H Calcium Total Bilirubin AST ALT Alkaline Phosphatase Total Creatine Kinase Troponin I Total Protein Albumin Globulin Albumin/Globulin Ratio Amylase Lipase Procalcitonin 4.41 Orders Category Date Time Status ABG DRAW REQUEST Stat CARDIO 02/23/18 11:09 Completed EKG-(ED ONLY) Stat CARDIO 02/23/18 11:09 Completed ED IV/MEDIPORT/POWERPORT .ONCE EMERGENCY 02/23/18 11:09 Active ABG Stat LAB 02/23/18 11:20 Completed AMYLASE Stat LAB 02/23/18 11:30 Completed BLOOD CULTURE (ED ONLY) Stat LAB 02/23/18 11:30 Received CBC W/ AUTO DIFF Stat LAB 02/23/18 11:30 Completed COMPREHENSIVE METABOLIC PANEL Stat LAB 02/23/18 11:30 Completed CREATINE KINASE Stat LAB 02/23/18 11:30 Completed LACTIC ACID Stat LAB 02/23/18 11:30 Completed LIPASE Stat LAB 02/23/18 11:30 Completed MOLECULAR GROUP A STREP Stat LAB 02/23/18 11:30 Completed PARTIAL THROMBOPLASTIN TIME Stat LAB 02/23/18 11:30 Completed PROCALCITONIN Stat LAB 02/23/18 11:30 Completed PT WITH INR Stat LAB 02/23/18 11:30 Completed TROPONIN I Stat LAB 02/23/18 11:30 Completed URINALYSIS C & S IF INDICATED Stat LAB 02/23/18 11:08 Uncollected 0.9 % Sodium Chloride [Saline Flush] MEDS 02/23/18 11:09 Active 1 syr IVF PRN PRN Metronidazole/Sodium Chloride [Flagyl 500 mg/100 ml] MEDS 02/23/18 14:07 Discontinued 100 ml IV .STK-MED Metronidazole/Sodium Chloride [Flagyl 500 mg/100 ml] MEDS 02/23/18 12:51 Discontinued 500 mg Premix 100 ml Ns 1 bag IV ONCE Piperacillin Sodium/Tazobactam [Zosyn 4.5 gm] 4.5 gm MEDS 02/23/18 12:51 Discontinued 0.9 % Sodium Chloride [Sodium Chloride] 100 ml IV ONCE Sodium Chloride 0.9% [Sodium Chloride] 500 ml MEDS 02/23/18 11:10 Active IV 100 mls/hr CT ABDOMEN/PELVIS WO CONTRAST Stat RADS 02/23/18 11:[address] CHEST W/O CONTRAST Stat RADS 02/23/18 11:15 Completed Medications Generic Name Dose Route Start Last Admin Trade Name Freq PRN Reason Stop Dose Admin Sodium Chloride 500 mls @ 100 mls/hr 02/23/18 11:10 02/23/18 12:14 Sodium Chloride IV 02/23/18 16:09 100 mls/hr .Q5H STA Administration Sodium Chloride 1 syr 02/23/18 11:09 02/23/18 12:14 Saline Flush IVF 1 syr PRN PRN Administration To flush IV Discontinued Medications Generic Name Dose Route Start Last Admin Trade Name Freq PRN Reason Stop Dose Admin Piperacillin Sod/Tazobactam 100 mls @ 100 mls/hr 02/23/18 12:51 02/23/18 13: 08 Sod 4.5 gm/ Sodium Chloride IV 02/23/18 13:50 100 mls/hr ONCE STA Administration Metronidazole 500 mg/ Sodium 100 mls @ 100 mls/hr 02/23/18 12:51 02/23/18 14: 12 Chloride IV 02/23/18 13:50 100 mls/hr ONCE STA Administration Vital Signs: Temp Pulse Resp BP Pulse Ox 02/23/18 10:44 98.8 F 104 H 24 102/59 L 93 L Departure - Departure Time of Disposition: 14:51 Disposition: TSF SHORT-TRM HOSP Discharge Problem: Abdominal pain Qualifiers: Abdominal location: epigastric Qualified Code(s): R10.13 - Epigastric pain Sepsis Qualifiers: Sepsis type: sepsis due to unspecified organism Qualified Code(s): A41.9 - Sepsis, unspecified organism Pancreatitis Qualifiers: Chronicity: chronic Pancreatitis type: unspecified pancreatitis type Qualified Code(s): K86.1 - Other chronic pancreatitis Instructions: Weakness (ED) Condition: Good Pt referred to PMD for follow-up: Yes IPMP verified?: No Additional Instructions: Please call your Family Physician as soon as possible to schedule a follow-up appointment. Allergies/Adverse Reactions: Allergies No Known Allergies Allergy (Verified 02/23/18 10:52) Home Medications: Ambulatory Orders Alprazolam 1 mg PO BEDTIME 02/13/15 Aspirin [Aspirin Chewable] 81 mg PO DAILYWM 02/13/15 Cetirizine HCl [Allergy Relief] 10 mg PO DAILY 02/13/15 Esomeprazole Magnesium [Nexium] 40 mg PO DAILY 02/13/15 Levothyroxine Sodium [Synthroid] 100 mcg PO EVERY OTHER DAY 02/13/15 Terazosin HCl [Hytrin] 5 mg PO BEDTIME 02/13/15 Nitroglycerin [Nitrostat] 0.4 mg SL Q5MIN X 3 DOSES PRN #1 tab.subl 02/14/15 Clopidogrel Bisulfate [Clopidogrel] 75 mg PO QPM 04/04/17 Docusate Sodium [Colace] 100 mg PO BEDTIME 04/07/17 Diltiazem HCl [Cardizem] 60 mg PO DAILY #30 tablet 11/26/17 Disposition Discussed With: Patient, Family
[2018-02-23] MEDS ORDERED: FLAGYL 500 MG/100 ML 100 ML IV ONE (14:07)
== END 2018-02-23 15:55 | disposition short-term general hospital (02) ==
LOC: ED 10:43
DX: R10.13 Epigastric pain (principal); K86.1 Other chronic pancreatitis; A41.9 Sepsis, unspecified organism; I25.10 Atherosclerotic heart disease of native coronary artery without angina pectoris; R53.1 Weakness; I10 Essential (primary) hypertension; I25.2 Old myocardial infarction; Z95.5 Presence of coronary angioplasty implant and graft; Z95.0 Presence of cardiac pacemaker; Z79.899 Other long term (current) drug therapy
CPT/HCPCS: 36415; 80053; 82150; 82550; 82803; 83605; 83690; 84145; 84484; 85025; 85610; 85730; 87040; 87651; 93005; 93010; 96361; 96365; 96367; 99285